=== PATIENT | male | born 1955 | race Caucasian/White ===

== ENCOUNTER → 2016-05-28 | Outpatient (CLI) | payer MEDICAID ==
[2016-05-28 12:38] LABS: ABSOLUTE BASOPHILS # (AUTO) 0.1 10^3/uL (0.0-0.2); ABSOLUTE EOSINOPHILS # (AUTO) 0.4 10^3/uL (0.0-0.6); ABSOLUTE LYMPHOCYTES (AUTO) 1.7 10^3/uL (0.5-4.7); ABSOLUTE MONOCYTES (AUTO) 0.5 10^3/uL (0.1-1.4); ABSOLUTE NEUT (AUTO) 2.9 10^3/uL (1.7-8.2); BASOPHILS % (AUTO) 1.2 % (0-2); EOSINOPHILS % (AUTO) 6.6 % (0-6); HEMATOCRIT 41.9 % (37.9-51.0); HEMOGLOBIN 14.6 g/dL (13.5-17.0); HGB HCT DIFFERENCE 1.9; LYMPHOCYTES % (AUTO) 30.8 % (13-45); MEAN CORPUSCULAR HEMOGLOBIN 34.2 pg (27.0-33.4); MEAN CORPUSCULAR HGB CONC 34.8 g/dL (32.0-36.0); MEAN CORPUSCULAR VOLUME 98 fl (80-97); MONOCYTES % (AUTO) 8.9 % (3-13); RED BLOOD COUNT 4.27 10^6/uL (4.35-5.55); RED CELL DISTRIBUTION WIDTH 13.1 % (11.5-14.0); SEGMENTED NEUTROPHILS % (AUTO) 52.5 % (42-78); WHITE BLOOD COUNT 5.5 10^3/uL (4.0-10.5)
[2016-05-28 12:55] LABS: ANION GAP 12 (5-19); BLOOD UREA NITROGEN 9 mg/dL (7-20); CALCIUM 9.2 mg/dL (8.4-10.2); CARBON DIOXIDE 23 mmol/L (22-30); CHLORIDE 99 mmol/L (98-107); GLUCOSE 84 mg/dL (75-110); POTASSIUM 4.8 mmol/L (3.6-5.0); SODIUM 133.9 mmol/L (137-145)
[2016-05-28 13:06] LABS: APPEARANCE,URINE CLEAR; BILIRUBIN,URINE NEGATIVE (NEGATIVE); GLUCOSE, URINE NEGATIVE (NEGATIVE); KETONES,URINE NEGATIVE (NEGATIVE); LEUKOCYTE ESTERASE,URINE NEGATIVE (NEGATIVE); NITRITE,URINE NEGATIVE (NEGATIVE); PROTEIN,URINE NEGATIVE (NEGATIVE); URINE SPECIFIC GRAVITY 1.014; UROBILINOGEN,URINE NEGATIVE mg/dL (<2.0)
--- NOTE | 2016-05-28 13:33 | EKG REPORT ---
SEVERITY:- BORDERLINE ECG - SINUS RHYTHM ATRIAL PREMATURE COMPLEX BORDERLINE INFERIOR Q WAVES : Confirmed by: Jared Rodriguez MD 28-May-2016 13:32:06
== END ==
LOC: OD 11:18
PROVIDERS: ATTEND Orthopaedic Surgery
DX: Z01.818 Encounter for other preprocedural examination (principal); Z01.810 Encounter for preprocedural cardiovascular examination; Z01.812 Encounter for preprocedural laboratory examination; J44.9 Chronic obstructive pulmonary disease, unspecified
CPT/HCPCS: 36415; 71020; 80048; 81001; 85025; 93005; 93010

== ENCOUNTER → 2016-06-06 | Outpatient (CLI) | payer MEDICAID ==
[~2016-06-06] MED LIST: REGADENOSON INJ 0.4 MG/5 ML DISP.SYRIN IV ONE
--- NOTE | 2016-06-07 18:04 | DRAGON STRESS TEST REPORT ---
Intravenous LexiScan Cardiolite stress test using single photon emmision computerized tomographic. Date of procedure: 06/06/2016 Ordering Provider: Dr. Maria De Jesus Orosco Indication:[ Chest pain in a patient with coronary artery disease and history of coronary artery bypass graft surgery.. Coronary risk factors: Age, hypertension, dyslipidemia, tobacco abuse disorder , and family history of coronary artery disease. Resting EKG: Sinus Rhythm. AP'C's. No acute changes. The patient had no chest pain or discomfort, and there were no arrhythmias seen. Stress EKG: No changes of ischemia.] Reason for termination: Protocol. Conclusions: Normal EKG and hemodynamic response to IV LexiScan. Nuclear data: At rest the patient was given 9.40 millicuries of technetium 99 sestamibi injected intravenously. As per protocol rest non gated SPECT images were obtained. Subsequently the patient was given intravenous LexiScan at a dose of 0.4 mg in 5 mL intravenously, followed by flush with normal saline. Subsequently the stress dose of 32.1 millicuries of technetium 99 sestamibi was injected intravenously. As per protocol stress gated images were obtained. Next Nuclear interpretation: Review of images showed that there was an area in the apical inferior wall in both the rest and stress images which showed a mild perfusion defect. This perfusion defect was more pronounced in the resting images compared to the stress images. This area had decreased motion contraction and thickening by gated study. The rest of the segments of the myocardium had normal perfusion at rest, and normal perfusion post stress with IV LexiScan. The rest of the Segments of the myocardium had normal thickening by gated study. There seems to be mild global hypokinesis, with a normal left ventricular chamber size.. T. I D. ratio was normal at 1.18. Computer read rest, and stress left ventricular ejection fraction were 52 %, and 48 %, respectively. 1. There is no scintigraphic evidence of LexiScan induced myocardial ischemia. 2. There is scintigraphic evidence of myocardial infarction/scar involving an area of the apical inferior wall. 3.. There is evidence of mild the reduced LV ejection fraction consistent with mild cardiomyopathy.. [ Recommendations: 1.Aggressive treatment of underlying coronary artery disease, and cardiopathy. 2.Aggressive risk factor modification, and treating the underlying co- morbidities, including smoking cessation counseling. 3. Recommend echocardiogram for LV ejection fraction correlation.. [] MTDD
== END ==
LOC: RAD 07:16
PROVIDERS: ATTEND Specialist
DX: R07.9 Chest pain, unspecified (principal); I25.10 Atherosclerotic heart disease of native coronary artery without angina pectoris; Z95.1 Presence of aortocoronary bypass graft
CPT/HCPCS: 93017; 78452; A9500; J2785; Q9969

== ENCOUNTER 2016-06-21 05:16 | Inpatient (IN) | payer MEDICAID ==
[~2016-06-21 05:16] MED LIST changes: +BUPIVACAINE INJ/PF LIPOSOME/PF 266 MG/20 ML SDV IJ PRN; +CEFAZOLIN 2 GM/D5W RTU 2 GM/50 ML RTUPB IV PRN; +IBUPROFEN 800 MG/NS 250 ML IV PRN; +LANSOPRAZOLE 15 MG TAB.RAP.DR PO PRN; +LIDOCAINE 0.5% INJ-PF (5 MG/ML) 50 ML SDV INJ PRN; +OXYCODONE HCL SR 10 MG TABLET PO PRN; -REGADENOSON INJ 0.4 MG/5 ML DISP.SYRIN IV ONE; +RINGERS SOLUTION,LACTATED 1,000 ML IV PRN; +SCOPOLAMINE HYDROBROMIDE 1.5 MG PATCH.TD72 TOP PRN
[2016-06-21 06:11] LABS: PROTHROMBIN TIME 12.7 SEC (11.4-15.4)
[2016-06-21 06:12] LABS: PARTIAL THROMBOPLASTIN TIME 29.7 SEC (23.5-35.8)
[2016-06-21] MEDS ORDERED: PROPOFOL INJ 200 MG/20 ML VIAL IV ONE (06:50)
[2016-06-21] MEDS ORDERED: HYDROMORPHONE HCL INJ/PF 2 MG/ML AMPULE ONE (06:50)
[2016-06-21] MEDS ORDERED: FENTANYL CITRATE INJ/PF 250 MCG/5 ML AMPULE ONE (06:50)
[2016-06-21] MEDS ORDERED: MIDAZOLAM 2 MG/2 ML INJ ONE (06:50)
[2016-06-21] MEDS ORDERED: ACETAMINOPHEN 0 ML IV ONE (06:50)
[2016-06-21] MEDS ORDERED: BUPIVACAINE HCL 0.5%-EPI 1:200000 INJ/PF 30 ML VIAL ONE (07:23)
[2016-06-21] MEDS ORDERED: BUPIVACAINE INJ/PF LIPOSOME/PF 266 MG/20 ML SDV ONE (07:23)
[2016-06-21] MEDS ORDERED: EPHEDRINE SULFATE INJ 50 MG/1 ML AMPULE ONE (08:08)
[2016-06-21] MEDS ORDERED: MEPERIDINE HCL/PF INJ 25 MG/1 ML DISP.SYRIN IV PRN (10:25)
[2016-06-21] MEDS ORDERED: OXYCODONE-ACETAMINOPHEN 5-325 MG TABLET PO PRN ×2 (10:25)
[2016-06-21] MEDS ORDERED: DIPHENHYDRAMINE HCL 50 MG/ML VIAL IV PRN (10:25)
[2016-06-21] MEDS ORDERED: PROMETHAZINE HCL INJ 25 MG/1 ML VIAL IV PRN ×2 (10:25)
[2016-06-21] MEDS ORDERED: FENTANYL CITRATE INJ/PF 100 MCG/2 ML AMPUL IV PRN ×3 (10:25)
[2016-06-21] MEDS ORDERED: ONDANSETRON HCL INJ/PF 4 MG/2 ML SDV IV PRN ×2 (10:25→11:59)
[2016-06-21] MEDS ORDERED: MORPHINE SULFATE 10 MG/ML INJ IV PRN (10:25)
[2016-06-21] MEDS ORDERED: ACETAMINOPHEN 100 ML IV ONE (11:13)
[2016-06-21] MEDS ORDERED: RINGERS SOLUTION,LACTATED 1,000 ML IV PRN ×2 (11:58→14:49)
[2016-06-21] MEDS ORDERED: ROCURONIUM BROMIDE INJ 50 MG/5 ML VIAL IV ONE (13:21)
[2016-06-21] MEDS ORDERED: SUCCINYLCHOLINE CHLORIDE INJ 200 MG/10 ML VIAL ONE (13:21)
[2016-06-21] MEDS ORDERED: NEOSTIGMINE METHYLSULFATE 10 MG/10 ML VIAL ONE (13:21)
[2016-06-21] MEDS ORDERED: LIDOCAINE 2% INJ-PF (20 MG/ML) 10 ML AMPUL ONE (13:21)
[2016-06-21] MEDS ORDERED: GLYCOPYRROLATE INJ 0.4 MG/2 ML VIAL ONE (13:21)
[2016-06-21] MEDS ORDERED: ONDANSETRON HCL INJ/PF 4 MG/2 ML SDV ONE (13:21)
[2016-06-21] MEDS ORDERED: PHENYLEPHRINE HCL INJ/PF 10 MG/1 ML SDV ONE (13:21)
[2016-06-21] MEDS ORDERED: NORMAL SALINE 500 ML IV ONE (14:30)
[2016-06-21] MEDS ORDERED: LORAZEPAM INJ 2 MG/1 ML VIAL IV PRN (14:48)
[2016-06-21] MEDS ORDERED: ALBUTEROL SULFATE 0.083% NEB 2.5 MG/3 ML AMPUL NEB PRN (14:48)
--- NOTE | 2016-06-21 15:17 | PDOC CONSULTATION ---
Consultation Consult Date: 06/21/16 Attending physician:: KEI FLORES Consult reason:: Low blood pressure History of Present Illness Admission Date/PCP: 06/21/16 05:16 RACHELL HENSON Patient complains of: Low blood pressure History of Present Illness: DORY MCGRAW is a 61 year old male with past medical history of coronary artery disease, alcohol abuse, COPD, hepatitis C cirrhosis, hypertension that is immediately status post right total shoulder arthroplasty and is noted to have low blood pressure postanesthesia. Patient is completely asymptomatic. He sitting up in bed and answering questions properly. He denies chest pain or shortness of breath. Past Medical History Cardiac Medical History: Reports: Coronary Artery Disease, Myocardial Infarction - Pt unaware of this, in chart only, Hypertension, Peripheral Vascular Disease, Heart Murmur Denies: Atrial Fibrillation, Congestive Heart Failure, Hyperlipidema, Pulmonary Embolism Pulmonary Medical History: Reports: Sleep Apnea - Pt unaware of this, in chart only Denies: Asthma, Bronchitis, Chronic Obstructive Pulmonary Disease (COPD), Pneumonia, Respiratory Failure, Tuberculosis Neurological Medical History: Denies: Seizures Endocrine Medical History: Renal/ Medical History: Malignancy Medical History: Denies: Breast Cancer, Cervical Cancer, Leukemia, Lung Cancer, Ovarian Cancer GI Medical History: Reports: Gastroesophageal Reflux Disease, Hiatal Hernia Denies: Crohn's Disease Musculoskeltal Medical History: Reports: Arthritis Denies: Fibromyalgia Psychiatric Medical History: Denies: Bipolar Disorder, Dementia, Depression, Post Traumatic Stress Disorder Hematology: Reports: Anemia Denies: Hemophilia, Sickle Cell Disease Infectious Medical History: Denies: HIV Past Surgical History Past Surgical History: Reports: Coronary Artery Bypass Graft - Triple Bypass, Orthopedic Surgery - Left total shoulder, right total shoulder, bilateral hip replacement Denies: Appendectomy, Cholecystectomy, Colostomy, Gastric Bypass Surgery, Herniorrhaphy, Pacemaker, Tonsillectomy Social History Information Source: Patient Lives with: Spouse/Significant other Smoking Status: Current Every Day Smoker Cigarettes Packs Per Day: 1 Frequency of Alcohol Use: Heavy Hx Recreational Drug Use: No - Yes- years ago Hx Prescription Drug Abuse: No - Advance Directive Resuscitation Status: Full Code Family History Family History: CAD, Malignancy Parental Family History Reviewed: Yes Children Family History Reviewed: Yes Sibling(s) Family History Reviewed.: Yes Medication/Allergy Home Medications: Aspirin/Caffeine [Bc Powder Packet] 1 pkt PO BID 06/06/16 Atorvastatin Calcium [Lipitor 10 mg Tablet] 10 mg PO QAM 06/06/16 Duloxetine HCl [Cymbalta] 60 mg PO [facility] 06/06/16 Gabapentin 300 mg PO QA 06/06/16 Lisinopril [Prinivil 30 mg Tablet] 30 mg PO QAM 06/06/16 Metoprolol Tartrate [Lopressor 25 mg Tablet] 25 mg PO QA 06/06/16 Multivitamin [Multivitamins] 1 each PO [facility] 06/06/16 Omeprazole 20 mg PO M 06/06/16 Varenicline Tartrate [Chantix 1 Mg Tablet] 1 mg PO BID 06/06/16 Allergies/Adverse Reactions: No Known Allergies Allergy (Unverified 01/03/11 10:18) Review of Systems Constitutional: ABSENT: chills, fever(s), headache(s), weight gain, weight loss Eyes: ABSENT: visual disturbances Ears: ABSENT: hearing changes Cardiovascular: ABSENT: chest pain, dyspnea on exertion, edema, orthropnea, palpitations Respiratory: ABSENT: cough, hemoptysis Gastrointestinal: ABSENT: abdominal pain, constipation, diarrhea, hematemesis, hematochezia, nausea, vomiting Genitourinary: ABSENT: dysuria, hematuria Musculoskeletal: PRESENT: other - pain in right shoulder. ABSENT: joint swelling Integumentary: ABSENT: rash, wounds Neurological: ABSENT: abnormal gait, abnormal speech, confusion, dizziness, focal weakness, syncope Psychiatric: ABSENT: anxiety, depression, homidical ideation, suicidal ideation Endocrine: ABSENT: cold intolerance, heat intolerance, polydipsia, polyuria Hematologic/Lymphatic: ABSENT: easy bleeding, easy bruising Physical Exam Vital Signs: Temp Pulse Resp BP Pulse Ox 98.5 F 67 16 90/44 L 98 06/21/16 13:11 06/21/16 13:11 06/21/16 13:11 06/21/16 13:11 06/21/16 13:11 Intake & Output 06/20/16 06/21/16 06/22/16 06:59 06:59 06:59 Intake Total 0 2408 Output Total 700 Balance 0 1708 PHYSICAL EXAM: GENERAL: Appears well, no acute distress HEENT: Normocephalic, no scleral icterus, conjunctiva clear, EOEM intact, PERRLA , moist mucous membranes NECK: trachea midline, no thyromegally RESPIRATORY: Clear to auscultation, no wheezes/rhonchi CARDIAC: Regular rate and rhythm, no murmur/fletcher/rub ABDOMEN: Soft, no distension, no tenderness, no guarding, normal bowel sounds, negative Farah sign RECTAL: deferred : deferred EXTREMITIES: No edema, cyanosis, clubbing MUSCULOSKELETAL: No joint swelling or deformity VASCULAR: normal peripheral pulses NEUROLOGIC: Alert, oriented to person and place only, he does not know the year , normal speech, cranial nerves grossly intact, 5/5 strength in all extremities , tactile sensation intact in all extremities SKIN: Healed sternotomy incision, healed incision over left shoulder, healed incision of her right knee PSYCHIATRIC: Normal mood, normal affect General appearance: PRESENT: no acute distress, well-developed, well-nourished Head exam: PRESENT: atraumatic, normocephalic Eye exam: PRESENT: conjunctiva pink, EOMI, PERRLA. ABSENT: scleral icterus Ear exam: PRESENT: normal external ear exam Mouth exam: PRESENT: moist, tongue midline Neck exam: ABSENT: carotid bruit, JVD, lymphadenopathy, thyromegaly Respiratory exam: PRESENT: clear to auscultation tone. ABSENT: rales, rhonchi, wheezes Cardiovascular exam: PRESENT: RRR. ABSENT: diastolic murmur, rubs, systolic murmur Pulses: PRESENT: normal dorsalis pedis pul Vascular exam: PRESENT: normal capillary refill GI/Abdominal exam: PRESENT: normal bowel sounds, soft. ABSENT: distended, guarding, mass, organolmegaly, rebound, tenderness Rectal exam: PRESENT: deferred Extremities exam: PRESENT: full ROM. ABSENT: calf tenderness, clubbing, pedal edema Neurological exam: PRESENT: alert, awake, oriented to person, oriented to place , oriented to time, oriented to situation, CN II-XII grossly intact. ABSENT: motor sensory deficit Psychiatric exam: PRESENT: appropriate affect, normal mood. ABSENT: homicidal ideation, suicidal ideation Skin exam: PRESENT: dry, intact, warm. ABSENT: cyanosis, rash Results Laboratory Results: 06/21/16 05:40 Blood Type B POSITIVE Antibody Screen NEGATIVE Assessment & Plan - Diagnosis (1) Status post total shoulder arthroplasty Is this a current diagnosis for this admission?: YesPlan: Orthopedics managing. (2) Hypotension Is this a current diagnosis for this admission?: YesPlan: Patient took routine outpatient medications of metoprolol and lisinopril this morning prior to surgery. General anesthesia probably also contributing. Patient is completely asymptomatic. Patient will receive one time 500 mL fluid bolus. In general we need to be conservative with IV fluid resuscitation given severe mitral regurgitation. Given cardiac history I would also like to check serial cardiac enzymes. EKG shows no acute ST or T-wave changes. (3) HTN (hypertension) Is this a current diagnosis for this admission?: Yes (4) Cirrhosis Is this a current diagnosis for this admission?: Yes (5) Hepatitis C Is this a current diagnosis for this admission?: Yes (6) CAD (coronary artery disease) Is this a current diagnosis for this admission?: Yes (7) COPD (chronic obstructive pulmonary disease) Is this a current diagnosis for this admission?: Yes (8) Alcohol abuse Is this a current diagnosis for this admission?: YesPlan: Start thiamine. Patient has some mild memory impairments likely secondary to Wernicke's. When necessary Ativan for signs of withdrawal. (9) Tobacco abuse Is this a current diagnosis for this admission?: Yes (10) Severe mitral regurgitation Is this a current diagnosis for this admission?: Yes - Time Time Spent: Greater than 70 Minutes
[2016-06-21 15:26] LABS: ABSOLUTE LYMPHOCYTES (AUTO) 1.1 10^3/uL (0.5-4.7); ABSOLUTE MONOCYTES (AUTO) 0.1 10^3/uL (0.1-1.4); ABSOLUTE NEUT (AUTO) 6.5 10^3/uL (1.7-8.2); BASOPHILS % (AUTO) 0.4 % (0-2); EOSINOPHILS % (AUTO) 0.5 % (0-6); HEMOGLOBIN 11.4 g/dL (13.5-17.0); HGB HCT DIFFERENCE 0.2; LYMPHOCYTES % (AUTO) 13.9 % (13-45); MEAN CORPUSCULAR HEMOGLOBIN 33.5 pg (27.0-33.4); MEAN CORPUSCULAR HGB CONC 33.7 g/dL (32.0-36.0); MEAN CORPUSCULAR VOLUME 99 fl (80-97); MONOCYTES % (AUTO) 1.9 % (3-13); RED BLOOD COUNT 3.42 10^6/uL (4.35-5.55); RED CELL DISTRIBUTION WIDTH 13.4 % (11.5-14.0); SEGMENTED NEUTROPHILS % (AUTO) 83.3 % (42-78); WHITE BLOOD COUNT 7.8 10^3/uL (4.0-10.5)
[2016-06-21] MEDS: CEFAZOLIN 2 GM/D5W RTU 2 GM/50 ML RTUPB IV SCH ×2 (15:28→22:23)
[2016-06-21 15:36] LABS: ALANINE AMINOTRANSFERASE 27 U/L (21-72); ALBUMIN 2.8 g/dL (3.5-5.0); ALKALINE PHOSPHATASE 59 U/L (38-126); ANION GAP 9 (5-19); ASPARTATE AMINO TRANSFERASE 31 U/L (17-59); BILIRUBIN,DIRECT 0.3 mg/dL (0.0-0.4); BILIRUBIN,TOTAL 0.5 mg/dL (0.2-1.3); BLOOD UREA NITROGEN 17 mg/dL (7-20); CALCIUM 7.9 mg/dL (8.4-10.2); CARBON DIOXIDE 21 mmol/L (22-30); CHLORIDE 104 mmol/L (98-107); CREATININE RESULT 1.27 mg/dL (0.52-1.25); GLUCOSE 166 mg/dL (75-110); POTASSIUM 4.6 mmol/L (3.6-5.0); SODIUM 134.3 mmol/L (137-145); TOTAL PROTEIN 4.9 g/dL (6.3-8.2)
[2016-06-21 15:52] LABS: CREATINE KINASE MB 4.06 ng/mL (<4.55)
[2016-06-21] MEDS ORDERED: ASPIRIN 81 MG TABLET, ENT COATED PO ONE (16:00)
[2016-06-21 16:01] LABS: TROPONIN I < 0.012 ng/mL
[2016-06-21] MEDS: VARENICLINE TARTRATE 1 MG TABLET PO SCH (17:58)
[2016-06-21] MEDS ORDERED: ASPIRIN PO SCH (18:00)
[2016-06-21] MEDS ORDERED: CAFFEINE PO SCH (18:00)
[2016-06-21] MEDS: OXYCODONE-ACETAMINOPHEN 5-325 MG TABLET PO PRN ×2 (18:27→22:23)
[2016-06-21 22:04] LABS: CREATINE KINASE MB 4.31 ng/mL (<4.55)
[2016-06-21 22:08] LABS: TROPONIN I < 0.012 ng/mL
[2016-06-22] MEDS: OXYCODONE-ACETAMINOPHEN 5-325 MG TABLET PO PRN ×4 (02:14→17:50)
[2016-06-22 03:40] LABS: HEMATOCRIT 33.2 % (37.9-51.0); HEMOGLOBIN 11.3 g/dL (13.5-17.0); HGB HCT DIFFERENCE 0.7; MEAN CORPUSCULAR HEMOGLOBIN 33.6 pg (27.0-33.4); MEAN CORPUSCULAR HGB CONC 34.2 g/dL (32.0-36.0); MEAN CORPUSCULAR VOLUME 98 fl (80-97); RED BLOOD COUNT 3.38 10^6/uL (4.35-5.55); RED CELL DISTRIBUTION WIDTH 13.5 % (11.5-14.0); WHITE BLOOD COUNT 7.1 10^3/uL (4.0-10.5)
[2016-06-22 03:52] LABS: ANION GAP 10 (5-19); BLOOD UREA NITROGEN 18 mg/dL (7-20); CALCIUM 7.6 mg/dL (8.4-10.2); CARBON DIOXIDE 22 mmol/L (22-30); CHLORIDE 101 mmol/L (98-107); CREATINE KINASE 435 U/L (55-170); CREATININE RESULT 1.06 mg/dL (0.52-1.25); GLUCOSE 116 mg/dL (75-110); POTASSIUM 4.2 mmol/L (3.6-5.0); SODIUM 132.5 mmol/L (137-145)
[2016-06-22 04:04] LABS: CREATINE KINASE MB 4.91 ng/mL (<4.55)
[2016-06-22 04:09] LABS: TROPONIN I < 0.012 ng/mL
[2016-06-22] MEDS: ATORVASTATIN CALCIUM 10 MG TABLET PO SCH (08:10)
[2016-06-22] MEDS: LANSOPRAZOLE 15 MG TAB.RAP.DR PO SCH (08:11)
[2016-06-22] MEDS: GABAPENTIN 300 MG CAPSULE PO SCH (08:11)
--- NOTE | 2016-06-22 08:20 | EKG REPORT ---
SEVERITY:- BORDERLINE ECG - SINUS RHYTHM BORDERLINE INFERIOR Q WAVES BORDERLINE T WAVE ABNORMALITIES : Confirmed by: Jared Rodriguez MD 22-Jun-2016 08:20:20
[2016-06-22] MEDS: VARENICLINE TARTRATE 1 MG TABLET PO SCH ×2 (09:40→17:50)
[2016-06-22] MEDS: METOPROLOL TARTRATE 25 MG TABLET PO SCH (09:41)
[2016-06-22] MEDS: ASPIRIN 81 MG TABLET, ENT COATED PO SCH (09:42)
[2016-06-22] MEDS: DULOXETINE HCL 30 MG CAPSULE.DR PO SCH (09:42)
[2016-06-22] MEDS: THIAMINE HCL 100 MG TABLET PO SCH (09:42)
[2016-06-22] MEDS: MULTIVITAMIN TABLET PO SCH (09:42)
[2016-06-22] MEDS ORDERED: LISINOPRIL 10 MG TABLET PO SCH (10:00)
--- NOTE | 2016-06-22 13:39 | PDOC PROGRESS REPORT ---
Subjective Progress Note for:: 06/22/16 Subjective:: Blood pressure stable today. Patient has no weakness, dizziness, chest pain, shortness of breath. Sitting in the bedside chair eating lunch. Physical Exam Vital Signs: Temp Pulse Resp BP Pulse Ox 98.3 F 62 15 100/58 L 99 06/22/16 11:28 06/22/16 11:28 06/22/16 11:28 06/22/16 11:28 06/22/16 11:28 Intake & Output 06/21/16 06/22/16 06/23/16 06:59 06:59 06:59 Intake Total 0 4748 200 Output Total 700 Balance 0 4048 200 GENERAL: No acute distress HEENT: Conjunctiva clear, nonicteric, moist mucous membranes, no JVD, midline trachea RESPIRATORY: Clear to auscultation bilaterally, no wheezes, no rhonchi CARDIAC: Regular rate and rhythm, no murmurs/gallops/rubs ABDOMEN: Soft, nondistended, nontender, positive bowel sounds, no rebound, no guarding EXTREMETIES: No edema, cyanosis, clubbing. Right shoulder immobilizer in place NEUROLOGIC: Alert, oriented to person/place/time, CN's grossly intact, no focal deficits SKIN: No rash, wounds PSYCH: Normal mood, normal affect Results Laboratory Results: 06/22/16 03:31 06/22/16 03:31 06/21/16 06/21/16 06/22/16 15:09 15:09 03:31 WBC 7.8 7.1 RBC 3.42 L 3.38 L Hgb 11.4 L 11.3 L Hct 34.0 L 33.2 L MCV 99 H 98 H MCH 33.5 H 33.6 H MCHC 33.7 34.2 RDW 13.4 13.5 Plt Count 126 L 106 L Seg Neutrophils % 83.3 H Lymphocytes % 13.9 Monocytes % 1.9 L Eosinophils % 0.5 Basophils % 0.4 Absolute Neutrophils 6.5 Absolute Lymphocytes 1.1 Absolute Monocytes 0.1 Absolute Eosinophils 0.0 Absolute Basophils 0.0 Sodium 134.3 L Potassium 4.6 Chloride 104 Carbon Dioxide 21 L Anion Gap 9 BUN 17 Creatinine 1.27 H Est GFR ( Amer) > 60 Est GFR (Non-Af Amer) 57 L Glucose 166 H Calcium 7.9 L Total Bilirubin 0.5 AST 31 ALT 27 Alkaline Phosphatase 59 Total Protein 4.9 L Albumin 2.8 L 06/22/16 03:31 WBC RBC Hgb Hct MCV MCH MCHC RDW Plt Count Seg Neutrophils % Lymphocytes % Monocytes % Eosinophils % Basophils % Absolute Neutrophils Absolute Lymphocytes Absolute Monocytes Absolute Eosinophils Absolute Basophils Sodium 132.5 L Potassium 4.2 Chloride 101 Carbon Dioxide 22 Anion Gap 10 BUN 18 Creatinine 1.06 Est GFR ( Amer) > 60 Est GFR (Non-Af Amer) > 60 Glucose 116 H Calcium 7.6 L Total Bilirubin AST ALT Alkaline Phosphatase Total Protein Albumin 06/21/16 06/21/16 06/21/16 15:09 15:09 21:15 Creatine Kinase 280 H 328 H CK-MB (CK-2) 4.06 Troponin I < 0.012 06/21/16 06/22/16 06/22/16 21:15 03:31 03:31 Creatine Kinase 435 H CK-MB (CK-2) 4.31 4.91 H Troponin I < 0.012 < 0.012 Impressions: Chest X-Ray 06/21/16 14:12 IMPRESSION: Obstructive lung disease. Minimal right basilar atelectasis Assessment & Plan - Diagnosis (1) Status post total shoulder arthroplasty Is this a current diagnosis for this admission?: YesPlan: Orthopedics managing. (2) Hypotension Is this a current diagnosis for this admission?: YesPlan: Resolved. Likely secondary to blood pressure medication side effect and anesthesia. Hospital medicine service will sign off for now. (3) HTN (hypertension) Is this a current diagnosis for this admission?: YesPlan: Continue metoprolol. Decrease lisinopril to 10 mg daily. (4) Cirrhosis Is this a current diagnosis for this admission?: Yes (5) Hepatitis C Is this a current diagnosis for this admission?: Yes (6) CAD (coronary artery disease) Is this a current diagnosis for this admission?: Yes (7) COPD (chronic obstructive pulmonary disease) Is this a current diagnosis for this admission?: Yes (8) Alcohol abuse Is this a current diagnosis for this admission?: Yes (9) Tobacco abuse Is this a current diagnosis for this admission?: Yes (10) Severe mitral regurgitation Is this a current diagnosis for this admission?: YesPlan: Discontinue IV fluidsand is taking oral intake and blood pressure is stable. - Time Time Spent with patient: 25-34 minutes
[2016-06-22] MEDS ORDERED: LORAZEPAM INJ 2 MG/1 ML VIAL ONE (19:52)
[2016-06-22] MEDS ORDERED: LORAZEPAM INJ 2 MG/1 ML VIAL IM ONE (20:00)
[2016-06-22] MEDS ORDERED: LORAZEPAM INJ 2 MG/1 ML VIAL IV PRN ×2 (20:20→20:22)
[2016-06-22] MEDS: LORAZEPAM INJ 2 MG/1 ML VIAL IV PRN (21:02)
[2016-06-22 21:32] LABS: ADD ON TESTING BLD IN LAB ACKNOWLEDGE
[2016-06-22 21:40] LABS: MAGNESIUM 1.4 mg/dL (1.6-2.3)
[2016-06-22] MEDS: MAGNESIUM SULFATE/D5W 1 GM/100 ML RTUPB IV SCH ×2 (22:41→23:43)
[2016-06-23] MEDS: MAGNESIUM SULFATE/D5W 1 GM/100 ML RTUPB IV SCH (00:44)
[2016-06-23 05:50] LABS: HEMATOCRIT 31.4 % (37.9-51.0); HEMOGLOBIN 10.6 g/dL (13.5-17.0); HGB HCT DIFFERENCE 0.4; MEAN CORPUSCULAR HEMOGLOBIN 33.5 pg (27.0-33.4); MEAN CORPUSCULAR HGB CONC 33.7 g/dL (32.0-36.0); MEAN CORPUSCULAR VOLUME 99 fl (80-97); RED BLOOD COUNT 3.17 10^6/uL (4.35-5.55); RED CELL DISTRIBUTION WIDTH 13.5 % (11.5-14.0); WHITE BLOOD COUNT 6.3 10^3/uL (4.0-10.5)
[2016-06-23 06:11] LABS: ANION GAP 6 (5-19); BLOOD UREA NITROGEN 12 mg/dL (7-20); CALCIUM 8.2 mg/dL (8.4-10.2); CARBON DIOXIDE 26 mmol/L (22-30); CHLORIDE 100 mmol/L (98-107); CREATININE RESULT 0.69 mg/dL (0.52-1.25); GLUCOSE 107 mg/dL (75-110); POTASSIUM 4.4 mmol/L (3.6-5.0); SODIUM 132.3 mmol/L (137-145)
--- NOTE | 2016-06-23 07:47 | PDOC PROGRESS REPORT ---
Subjective Progress Note for:: 06/23/16 Subjective:: Patient sedated after 12 mg of Ativan to control DTs Physical Exam Vital Signs: Temp Pulse Resp BP Pulse Ox 37.5 C 107 H 21 H 140/61 H 96 06/23/16 03:39 06/23/16 03:39 06/23/16 03:39 06/23/16 03:39 06/23/16 03:39 Intake & Output 06/22/16 06/23/16 06/24/16 06:59 06:59 06:59 Intake Total 4748 890 Output Total 700 2600 Balance 4048 -1710 General appearance: PRESENT: thin Extremities exam: PRESENT: other - Right shoulder dressing with minor old drainage . vascular examination is notable for brisk capillary refill. Neurologic examination cannot be assessed Results Laboratory Results: 06/23/16 04:46 06/23/16 04:46 06/22/16 06/23/16 06/23/16 03:31 04:46 04:46 WBC 6.3 RBC 3.17 L Hgb 10.6 L Hct 31.4 L MCV 99 H MCH 33.5 H MCHC 33.7 RDW 13.5 Plt Count 90 L Sodium 132.3 L Potassium 4.4 Chloride 100 Carbon Dioxide 26 Anion Gap 6 BUN 12 Creatinine 0.69 Est GFR ( Amer) > 60 Est GFR (Non-Af Amer) > 60 Glucose 107 Calcium 8.2 L Magnesium 1.4 L 06/21/16 06/21/16 06/21/16 15:09 15:09 21:15 Creatine Kinase 280 H 328 H CK-MB (CK-2) 4.06 Troponin I < 0.012 06/21/16 06/22/16 06/22/16 21:15 03:31 03:31 Creatine Kinase 435 H CK-MB (CK-2) 4.31 4.91 H Troponin I < 0.012 < 0.012 Impressions: Chest X-Ray 06/21/16 14:12 IMPRESSION: Obstructive lung disease. Minimal right basilar atelectasis Assessment & Plan - Diagnosis (1) Alcohol abuse Is this a current diagnosis for this admission?: YesPlan: Patient in flagrant DTs now sedated with Ativan (2) Status post total shoulder arthroplasty Is this a current diagnosis for this admission?: YesPlan: Wounds seems to be healing uneventfully. Neurologic examination cannot be assessed - Time Time Spent with patient: 15-24 minutes Within: Other
[2016-06-23] MEDS ORDERED: LISINOPRIL 10 MG TABLET PO SCH (10:00)
[2016-06-23] MEDS ORDERED: LORAZEPAM INJ 2 MG/1 ML VIAL IV ONE (11:42)
[2016-06-23] MEDS: DULOXETINE HCL 30 MG CAPSULE.DR PO SCH (11:43)
[2016-06-23] MEDS ORDERED: DEXTROSE 40% GEL 15 GM TUBE PO PRN ×2 (11:43)
[2016-06-23] MEDS ORDERED: GLUCAGON,HUMAN RECOMB 1 MG INJ SUBCUT PRN (11:43)
[2016-06-23] MEDS ORDERED: DEXTROSE 50%-WATER 25 GM/50 ML DISP.SYRIN IV PRN ×2 (11:43)
[2016-06-23] MEDS: VARENICLINE TARTRATE 1 MG TABLET PO SCH (11:44)
[2016-06-23] MEDS: ASPIRIN 81 MG TABLET, ENT COATED PO SCH (11:44)
[2016-06-23] MEDS: THIAMINE HCL 100 MG TABLET PO SCH (11:45)
[2016-06-23] MEDS: ATORVASTATIN CALCIUM 10 MG TABLET PO SCH (11:46)
[2016-06-23] MEDS: MULTIVITAMIN TABLET PO SCH (11:46)
[2016-06-23] MEDS: LANSOPRAZOLE 15 MG TAB.RAP.DR PO SCH (11:46)
[2016-06-23] MEDS: GABAPENTIN 300 MG CAPSULE PO SCH (11:47)
[2016-06-23] MEDS: METOPROLOL TARTRATE 25 MG TABLET PO SCH (11:47)
[2016-06-23] MEDS ORDERED: MAGNESIUM SULFATE/D5W 100 ML IV SCH (13:00)
[2016-06-23] MEDS ORDERED: HALOPERIDOL LACTATE INJ 5 MG/1 ML VIAL ONE (14:11)
--- NOTE | 2016-06-23 14:16 | PDOC PROGRESS REPORT ---
Subjective Progress Note for:: 06/23/16 Subjective:: Patient has become confused and combative overnight as result of acute alcohol withdrawal. I cannot obtain any reasonable history from from patient secondary to encephalopathy and agitation. Physical Exam Vital Signs: Temp Pulse Resp BP Pulse Ox 97.3 F 94 20 138/85 H 99 06/23/16 11:22 06/23/16 13:40 06/23/16 13:40 06/23/16 11:22 06/23/16 11:22 Intake & Output 06/22/16 06/23/16 06/24/16 06:59 06:59 06:59 Intake Total 4748 890 0 Output Total 700 2600 800 Balance 5739 -2982 -800 GENERAL: Acutely agitated HEENT: Conjunctiva clear, nonicteric, moist mucous membranes, no JVD, midline trachea RESPIRATORY: Clear to auscultation bilaterally, no wheezes, no rhonchi CARDIAC: Regular rate and rhythm, no murmurs/gallops/rubs ABDOMEN: Soft, nondistended, nontender, positive bowel sounds, no rebound, no guarding EXTREMETIES: No edema, cyanosis, clubbing. Right shoulder immobilizer in place NEUROLOGIC: Globally disoriented, CN's grossly intact, no focal deficits SKIN: No rash, wounds Results Laboratory Results: 06/23/16 04:46 06/23/16 04:46 06/22/16 06/23/16 06/23/16 03:31 04:46 04:46 WBC 6.3 RBC 3.17 L Hgb 10.6 L Hct 31.4 L MCV 99 H MCH 33.5 H MCHC 33.7 RDW 13.5 Plt Count 90 L Sodium 132.3 L Potassium 4.4 Chloride 100 Carbon Dioxide 26 Anion Gap 6 BUN 12 Creatinine 0.69 Est GFR ( Amer) > 60 Est GFR (Non-Af Amer) > 60 Glucose 107 Calcium 8.2 L Magnesium 1.4 L 06/21/16 06/21/16 06/21/16 15:09 15:09 21:15 Creatine Kinase 280 H 328 H CK-MB (CK-2) 4.06 Troponin I < 0.012 06/21/16 06/22/16 06/22/16 21:15 03:31 03:31 Creatine Kinase 435 H CK-MB (CK-2) 4.31 4.91 H Troponin I < 0.012 < 0.012 Impressions: Chest X-Ray 06/21/16 14:12 IMPRESSION: Obstructive lung disease. Minimal right basilar atelectasis Assessment & Plan - Diagnosis (1) Delirium tremens Is this a current diagnosis for this admission?: YesPlan: Patient has been moved to the intensive care unit. We will place him on IV Ativan infusion and titrate to light sedation. Patient will be made nothing by mouth status and placed on IV fluids. (2) Status post total shoulder arthroplasty Is this a current diagnosis for this admission?: YesPlan: Orthopedics managing. (3) Hypotension Is this a current diagnosis for this admission?: YesPlan: Resolved. Likely secondary to blood pressure medication side effect and anesthesia. (4) HTN (hypertension) Is this a current diagnosis for this admission?: YesPlan: Hold oral medications for now while nothing by mouth. When necessary IV Lopressor. (5) Cirrhosis Is this a current diagnosis for this admission?: Yes (6) Hepatitis C Is this a current diagnosis for this admission?: Yes (7) CAD (coronary artery disease) Is this a current diagnosis for this admission?: Yes (8) COPD (chronic obstructive pulmonary disease) Is this a current diagnosis for this admission?: Yes (9) Alcohol abuse Is this a current diagnosis for this admission?: YesPlan: Continue thiamine. Patient has some mild memory impairments likely secondary to Wernicke's. (10) Tobacco abuse Is this a current diagnosis for this admission?: Yes (11) Severe mitral regurgitation Is this a current diagnosis for this admission?: YesPlan: Monitor respiratory status closely on gentle IV fluids. (12) Hypomagnesemia Is this a current diagnosis for this admission?: YesPlan: Likely associated with acute alcohol withdrawal. Replace as needed. - Time Time Spent with patient: 35 or more minutes
[2016-06-23] MEDS ORDERED: HALOPERIDOL LACTATE INJ 5 MG/1 ML VIAL IV ONE (14:30)
[2016-06-23] MEDS: LORAZEPAM INJ 2 MG/1 ML VIAL IV PRN (14:34)
[2016-06-23] MEDS: PANTOPRAZOLE SODIUM 40 MG VIAL IV SCH (14:35)
[2016-06-23] MEDS: DEXTROSE 5%-NORMAL SALINE 1,000 ML IV PRN (14:56)
[2016-06-23] MEDS ORDERED: FENTANYL CITRATE INJ/PF 100 MCG/2 ML AMPUL ONE (16:14)
[2016-06-23] MEDS ORDERED: CEFTRIAXONE 1 GM/D5W RTU 1 GM/50 ML RTUPB IV ONE (16:30)
[2016-06-23] MEDS ORDERED: PROPOFOL 100 ML IV ONE (16:33)
--- NOTE | 2016-06-23 16:33 | PDOC PROGRESS REPORT ---
Bedside Procedure - Central Line Right Femoral Time completed: 16:30 Consent obtained: No - unable to obtain, placed under emergency setting secondary to acute DT's Central line pre-insertion: Sterile PPE donned, Chloraprep applied, Sterile drapes applied Central line lumen type: Triple Anesthetic type: 1% Lidocaine Ultrasound guided: No Line secured with sutures: Yes Central line post-insertion: Blood return from lumens, Biopatch applied, Sutured , Sterile dressing applied Complications: No
[2016-06-23] MEDS: THIAMINE HCL 100 MG, FOLIC ACID 1 MG in NORMAL SALINE 50 ML IV SCH (16:35)
--- NOTE | 2016-06-23 16:37 | Progress Note ---
Provider Note Provider Note: ADDENDUM: Patient with worsening respiratory depression as a result of excessive amounts of sedation required for acute delirium tremens. Patient no longer able to protect airway secondary to acute delirium tremens and required sedation for treatment of acute delirium tremens. It is my impression patient's alcohol withdrawal is going to get worse before it gets better. Decision has been made to intubate patient for airway protection and respiratory assistance until he is through his acute delirium tremens. I will consult Dr. Ricardo of pulmonary medicine.
[2016-06-23] MEDS ORDERED: PHARMACY COMMUNICATION ORDER MC NR (16:45)
[2016-06-23 16:54] LABS: APPEARANCE,URINE CLEAR; BILIRUBIN,URINE NEGATIVE (NEGATIVE); GLUCOSE, URINE NEGATIVE (NEGATIVE); KETONES,URINE NEGATIVE (NEGATIVE); LEUKOCYTE ESTERASE,URINE NEGATIVE (NEGATIVE); NITRITE,URINE NEGATIVE (NEGATIVE); PROTEIN,URINE NEGATIVE (NEGATIVE); URINE SPECIFIC GRAVITY 1.006
[2016-06-23] MEDS ORDERED: FENTANYL CITRATE INJ/PF 100 MCG/2 ML AMPUL IV ONE (16:55)
[2016-06-23] MEDS ORDERED: NORMAL SALINE 1000 ML 500 ML IV ONE (17:40)
[2016-06-23] MEDS: PROPOFOL 100 ML IV PRN (18:15)
[2016-06-23] MEDS: LORAZEPAM 24 MG/240 ML BAG IV PRN ×2 (18:16→19:27)
[2016-06-23 18:24] LABS: ARTERIAL BLOOD BASE EXCESS 3.6 mmol/L; ARTERIAL BLOOD O2 SATURATION 99.2 % (94-98)
[2016-06-23] MEDS ORDERED: MAGNESIUM SULFATE/D5W 1 GM/100 ML RTUPB IV ONE (19:02)
[2016-06-23] MEDS ORDERED: NORMAL SALINE 500 ML IV ONE (20:00)
[2016-06-23] MEDS: IPRATROPIUM/ALBUTEROL 0.5-2.5 MG/3 ML AMPUL NEB SCH (20:12)
--- NOTE | 2016-06-23 20:43 | PDOC CONSULTATION ---
Consultation Consult Date: 06/23/16 Attending physician:: JANELL PONCE Consult reason:: RESP FAIL History of Present Illness Admission Date/PCP: 06/21/16 05:16 RACHELL HENSON History of Present Illness: Information from chart DORY MCGRAW is a 61 year old male with past medical history of coronary artery disease, alcohol abuse, COPD, hepatitis C cirrhosis, hypertension that is immediately status post right total shoulder arthroplasty and is noted to have low blood pressure postanesthesia. Patient is completely asymptomatic. He sitting up in bed and answering questions properly. He denies chest pain or shortness of breath. However patient resp status decline as it appears he was going into DT with declining mental status Past Medical History Cardiac Medical History: Reports: Coronary Artery Disease, Myocardial Infarction - Pt unaware of this, in chart only, Hypertension, Peripheral Vascular Disease, Heart Murmur Denies: Atrial Fibrillation, Congestive Heart Failure, Hyperlipidema, Pulmonary Embolism Pulmonary Medical History: Reports: Sleep Apnea - Pt unaware of this, in chart only Denies: Asthma, Bronchitis, Chronic Obstructive Pulmonary Disease (COPD), Pneumonia, Respiratory Failure, Tuberculosis Neurological Medical History: Denies: Seizures Endocrine Medical History: Renal/ Medical History: Malignancy Medical History: Denies: Breast Cancer, Cervical Cancer, Leukemia, Lung Cancer, Ovarian Cancer GI Medical History: Reports: Gastroesophageal Reflux Disease, Hiatal Hernia Denies: Crohn's Disease Musculoskeltal Medical History: Reports: Arthritis Denies: Fibromyalgia Psychiatric Medical History: Denies: Bipolar Disorder, Dementia, Depression, Post Traumatic Stress Disorder Hematology: Reports: Anemia Denies: Hemophilia, Sickle Cell Disease Infectious Medical History: Denies: HIV Past Surgical History Past Surgical History: Reports: Coronary Artery Bypass Graft - Triple Bypass, Orthopedic Surgery - Left total shoulder, right total shoulder, bilateral hip replacement Denies: Appendectomy, Cholecystectomy, Colostomy, Gastric Bypass Surgery, Herniorrhaphy, Pacemaker, Tonsillectomy Social History Information Source: [facility] Records Lives with: Spouse/Significant other Smoking Status: Smoker,Current Status Unk Cigarettes Packs Per Day: 1 Number of Years Smokin Frequency of Alcohol Use: Heavy Hx Recreational Drug Use: No - Yes- years ago Drugs: Marijuana Hx Prescription Drug Abuse: No - Advance Directive Resuscitation Status: Full Code Family History Family History: CAD, Malignancy Parental Family History Reviewed: No Children Family History Reviewed: No Sibling(s) Family History Reviewed.: No Medication/Allergy Home Medications: Aspirin/Caffeine [Bc Powder Packet] 1 pkt PO BID 06/06/16 Atorvastatin Calcium [Lipitor 10 mg Tablet] 10 mg PO QAM 06/06/16 Duloxetine HCl [Cymbalta] 60 mg PO QAM 06/06/16 Gabapentin 300 mg PO QAM 06/06/16 Lisinopril [Prinivil 30 mg Tablet] 30 mg PO QAM 06/06/16 Metoprolol Tartrate [Lopressor 25 mg Tablet] 25 mg PO QAM 06/06/16 Multivitamin [Multivitamins] 1 each PO QAM 06/06/16 Omeprazole 20 mg PO QAM 06/06/16 Varenicline Tartrate [Chantix 1 Mg Tablet] 1 mg PO BID 06/06/16 Allergies/Adverse Reactions: No Known Allergies Allergy (Unverified 01/03/11 10:18) Review of Systems ROS unobtainable: Due to endotracheal tube Physical Exam Vital Signs: Temp Pulse Resp BP Pulse Ox 100.9 F H 101 H 22 H 132/104 H 96 06/23/16 14:00 06/23/16 14:00 06/23/16 14:00 06/23/16 14:00 06/23/16 14:00 Intake & Output 06/22/16 06/23/16 06/24/16 06:59 06:59 06:59 Intake Total 4748 890 0 Output Total 700 2600 800 Balance 6378 -2523 -387 General appearance: PRESENT: no acute distress, disheveled, thin, well-developed Head exam: PRESENT: atraumatic, normocephalic Eye exam: PRESENT: conjunctiva pale Mouth exam: PRESENT: dry mucosa, other - ET tube Neck exam: ABSENT: carotid bruit, JVD, lymphadenopathy, thyromegaly Respiratory exam: PRESENT: decreased breath sounds, prolonged expiratory phas, rhonchi, symmetrical, unlabored Cardiovascular exam: PRESENT: RRR, +S1, +S2 Pulses: PRESENT: normal radial pulses GI/Abdominal exam: PRESENT: normal bowel sounds, soft. ABSENT: distended, guarding, mass, organolmegaly, rebound, tenderness Rectal exam: PRESENT: deferred Gentrourinary exam: PRESENT: indwelling catheter Musculoskeletal exam: PRESENT: normal inspection Skin exam: PRESENT: dry, warm Results Laboratory Results: 06/23/16 04:46 06/23/16 04:46 06/22/16 06/23/16 06/23/16 03:31 04:46 04:46 WBC 6.3 RBC 3.17 L Hgb 10.6 L Hct 31.4 L MCV 99 H MCH 33.5 H MCHC 33.7 RDW 13.5 Plt Count 90 L Sodium 132.3 L Potassium 4.4 Chloride 100 Carbon Dioxide 26 Anion Gap 6 BUN 12 Creatinine 0.69 Est GFR ( Amer) > 60 Est GFR (Non-Af Amer) > 60 Glucose 107 Calcium 8.2 L Magnesium 1.4 L Urine Color Urine Appearance Urine pH Ur Specific [place] Urine Protein Urine Glucose (UA) Urine Ketones Urine Blood Urine Nitrite Ur Leukocyte Esterase Urine WBC (Auto) Urine RBC (Auto) 06/23/16 16:00 WBC RBC Hgb Hct MCV MCH MCHC RDW Plt Count Sodium Potassium Chloride Carbon Dioxide Anion Gap BUN Creatinine Est GFR ( Amer) Est GFR (Non-Af Amer) Glucose Calcium Magnesium Urine Color YELLOW Urine Appearance CLEAR Urine pH 7.0 Ur Specific [place] 1.006 Urine Protein NEGATIVE Urine Glucose (UA) NEGATIVE Urine Ketones NEGATIVE Urine Blood MODERATE H Urine Nitrite NEGATIVE Ur Leukocyte Esterase NEGATIVE Urine WBC (Auto) 4 Urine RBC (Auto) 91 06/21/16 06/21/16 06/21/16 15:09 15:09 21:15 Creatine Kinase 280 H 328 H CK-MB (CK-2) 4.06 Troponin I < 0.012 06/21/16 06/22/16 06/22/16 21:15 03:31 03:31 Creatine Kinase 435 H CK-MB (CK-2) 4.31 4.91 H Troponin I < 0.012 < 0.012 Impressions: Chest X-Ray 06/21/16 14:12 IMPRESSION: Obstructive lung disease. Minimal right basilar atelectasis Assessment & Plan - Diagnosis (1) Alcohol abuse Is this a current diagnosis for this admission?: Yes (2) COPD (chronic obstructive pulmonary disease) Is this a current diagnosis for this admission?: Yes (3) Status post total shoulder arthroplasty Is this a current diagnosis for this admission?: Yes (4) Tobacco abuse Is this a current diagnosis for this admission?: YesPlan: transdermal nicotine (5) Emphysema lung Is this a current diagnosis for this admission?: Yes (6) Cirrhosis Is this a current diagnosis for this admission?: Yes (7) Delirium tremens Is this a current diagnosis for this admission?: Yes (8) Hepatitis C Is this a current diagnosis for this admission?: Yes - Time Critical Time spent with patient: 35 or more minutes
[2016-06-24] MEDS: LORAZEPAM 24 MG/240 ML BAG IV PRN ×4 (01:31→20:53)
[2016-06-24] MEDS: PROPOFOL 100 ML IV PRN ×3 (01:31→20:53)
[2016-06-24] MEDS: IPRATROPIUM/ALBUTEROL 0.5-2.5 MG/3 ML AMPUL NEB SCH ×4 (02:10→20:16)
[2016-06-24] MEDS: MORPHINE SULFATE 10 MG/ML INJ IV PRN ×2 (02:42→14:37)
[2016-06-24 06:06] LABS: ARTERIAL BLOOD BASE EXCESS 2.2 mmol/L; ARTERIAL BLOOD O2 SATURATION 98.4 % (94-98)
[2016-06-24 06:18] LABS: ALANINE AMINOTRANSFERASE 22 U/L (21-72); ALBUMIN 2.4 g/dL (3.5-5.0); ALKALINE PHOSPHATASE 61 U/L (38-126); ANION GAP 5 (5-19); ASPARTATE AMINO TRANSFERASE 40 U/L (17-59); BILIRUBIN,DIRECT 0.4 mg/dL (0.0-0.4); BILIRUBIN,TOTAL 0.7 mg/dL (0.2-1.3); BLOOD UREA NITROGEN 7 mg/dL (7-20); CALCIUM 7.7 mg/dL (8.4-10.2); CARBON DIOXIDE 25 mmol/L (22-30); CHLORIDE 102 mmol/L (98-107); GLUCOSE 130 mg/dL (75-110); MAGNESIUM 1.8 mg/dL (1.6-2.3); POTASSIUM 3.8 mmol/L (3.6-5.0); SODIUM 132.1 mmol/L (137-145); TOTAL PROTEIN 4.5 g/dL (6.3-8.2)
[2016-06-24 06:21] LABS: ABSOLUTE EOSINOPHILS # (AUTO) 0.1 10^3/uL (0.0-0.6); ABSOLUTE LYMPHOCYTES (AUTO) 0.7 10^3/uL (0.5-4.7); ABSOLUTE MONOCYTES (AUTO) 0.5 10^3/uL (0.1-1.4); ABSOLUTE NEUT (AUTO) 4.4 10^3/uL (1.7-8.2); BASOPHILS % (AUTO) 0.4 % (0-2); EOSINOPHILS % (AUTO) 1.6 % (0-6); HEMATOCRIT 26.8 % (37.9-51.0); HEMOGLOBIN 9.3 g/dL (13.5-17.0); HGB HCT DIFFERENCE 1.1; LYMPHOCYTES % (AUTO) 12.1 % (13-45); MEAN CORPUSCULAR HEMOGLOBIN 34.1 pg (27.0-33.4); MEAN CORPUSCULAR HGB CONC 34.7 g/dL (32.0-36.0); MEAN CORPUSCULAR VOLUME 98 fl (80-97); MONOCYTES % (AUTO) 8.7 % (3-13); RED BLOOD COUNT 2.73 10^6/uL (4.35-5.55); RED CELL DISTRIBUTION WIDTH 13.3 % (11.5-14.0); SEGMENTED NEUTROPHILS % (AUTO) 77.2 % (42-78); WHITE BLOOD COUNT 5.7 10^3/uL (4.0-10.5)
[2016-06-24] MEDS: ASPIRIN 81 MG TABLET, CHEWABLE NG SCH (10:44)
[2016-06-24] MEDS: ATORVASTATIN CALCIUM 10 MG TABLET NG SCH (10:44)
[2016-06-24] MEDS: GABAPENTIN 300 MG CAPSULE NG SCH (10:44)
[2016-06-24] MEDS: DULOXETINE HCL 30 MG CAPSULE.DR PO SCH (10:53)
[2016-06-24] MEDS: LISINOPRIL 10 MG TABLET NG SCH (10:53)
[2016-06-24] MEDS: METOPROLOL TARTRATE 25 MG TABLET NG SCH (10:53)
[2016-06-24] MEDS: PANTOPRAZOLE SODIUM 40 MG VIAL IV SCH (12:45)
--- NOTE | 2016-06-24 13:17 | PDOC PROGRESS REPORT ---
Subjective Progress Note for:: 06/24/16 Subjective:: Patient has remained slightly hypotensive since being started on sedation for mechanical ventilation yesterday. I cannot obtain history from patient secondary to sedated/intubated state. Physical Exam Vital Signs: Temp Pulse Resp BP Pulse Ox 97.3 F 74 19 95/47 L 98 06/24/16 12:00 06/24/16 12:00 06/24/16 12:21 06/24/16 12:21 06/24/16 12:24 Intake & Output 06/23/16 06/24/16 06/25/16 06:59 06:59 06:59 Intake Total 890 3237 Output Total 2600 2075 225 Balance -1710 1162 -225 Weight 68.8 kg GENERAL: Sedated/intubated HEENT: Conjunctiva clear, nonicteric, moist mucous membranes, no JVD, midline trachea RESPIRATORY: Clear to auscultation bilaterally, no wheezes, no rhonchi CARDIAC: Regular rate and rhythm, no murmurs/gallops/rubs ABDOMEN: Soft, nondistended, nontender, positive bowel sounds, no rebound, no guarding EXTREMETIES: No edema, cyanosis, clubbing. immobilizer on right shoulder NEUROLOGIC: Sedated SKIN: No rash, wounds Results Laboratory Results: 06/24/16 05:32 06/24/16 05:32 06/23/16 06/23/16 06/24/16 16:00 18:07 05:32 WBC 5.7 RBC 2.73 L Hgb 9.3 L Hct 26.8 L MCV 98 H MCH 34.1 H MCHC 34.7 RDW 13.3 Plt Count 97 L Seg Neutrophils % 77.2 Lymphocytes % 12.1 L Monocytes % 8.7 Eosinophils % 1.6 Basophils % 0.4 Absolute Neutrophils 4.4 Absolute Lymphocytes 0.7 Absolute Monocytes 0.5 Absolute Eosinophils 0.1 Absolute Basophils 0.0 Carbonic Acid 1.18 HCO3/H2CO3 Ratio 23:1 ABG pH 7.46 H ABG pCO2 39.3 ABG pO2 165.5 H ABG HCO3 27.6 H ABG O2 Saturation 99.2 H ABG Base Excess 3.6 FiO2 50% Sodium Potassium Chloride Carbon Dioxide Anion Gap BUN Creatinine Est GFR ( Amer) Est GFR (Non-Af Amer) Glucose Calcium Magnesium Total Bilirubin AST ALT Alkaline Phosphatase Total Protein Albumin Urine Color YELLOW Urine Appearance CLEAR Urine pH 7.0 Ur Specific [place] 1.006 Urine Protein NEGATIVE Urine Glucose (UA) NEGATIVE Urine Ketones NEGATIVE Urine Blood MODERATE H Urine Nitrite NEGATIVE Ur Leukocyte Esterase NEGATIVE Urine WBC (Auto) 4 Urine RBC (Auto) 91 06/24/16 06/24/16 05:32 05:40 WBC RBC Hgb Hct MCV MCH MCHC RDW Plt Count Seg Neutrophils % Lymphocytes % Monocytes % Eosinophils % Basophils % Absolute Neutrophils Absolute Lymphocytes Absolute Monocytes Absolute Eosinophils Absolute Basophils Carbonic Acid 1.02 L HCO3/H2CO3 Ratio 24:1 ABG pH 7.49 H ABG pCO2 33.8 L ABG pO2 112.4 H ABG HCO3 25.3 ABG O2 Saturation 98.4 H ABG Base Excess 2.2 FiO2 35% Sodium 132.1 L Potassium 3.8 Chloride 102 Carbon Dioxide 25 Anion Gap 5 BUN 7 Creatinine 0.60 Est GFR ( Amer) > 60 Est GFR (Non-Af Amer) > 60 Glucose 130 H Calcium 7.7 L Magnesium 1.8 Total Bilirubin 0.7 AST 40 ALT 22 Alkaline Phosphatase 61 Total Protein 4.5 L Albumin 2.4 L Urine Color Urine Appearance Urine pH Ur Specific [place] Urine Protein Urine Glucose (UA) Urine Ketones Urine Blood Urine Nitrite Ur Leukocyte Esterase Urine WBC (Auto) Urine RBC (Auto) 06/21/16 06/21/16 06/21/16 15:09 15:09 21:15 Creatine Kinase 280 H 328 H CK-MB (CK-2) 4.06 Troponin I < 0.012 06/21/16 06/22/16 06/22/16 21:15 03:31 03:31 Creatine Kinase 435 H CK-MB (CK-2) 4.31 4.91 H Troponin I < 0.012 < 0.012 Impressions: Chest X-Ray 06/24/16 06:00 IMPRESSION: Mild right basilar atelectasis. NG tube with the tip just passed the GE junction and the side hole in the distal esophagus, advancement by approximately 5-7 cm recommended. Assessment & Plan - Diagnosis (1) Respiratory failure Is this a current diagnosis for this admission?: YesPlan: Secondary to acute DTs and medications required for acute DTs. Continue mechanical ventilation. Dr. Ricardo of pulmonary medicine managing. (2) Delirium tremens Is this a current diagnosis for this admission?: YesPlan: Continue Ativan drip for now. (3) Fever Is this a current diagnosis for this admission?: YesPlan: Chest x-ray shows no definite infiltrate. Urinalysis was negative. Blood cultures are pending. Sputum cultures pending. Started IV Rocephin on 2016 empirically. (4) Status post total shoulder arthroplasty Is this a current diagnosis for this admission?: YesPlan: Orthopedics managing. (5) Alcohol abuse Is this a current diagnosis for this admission?: YesPlan: Continue thiamine. Patient has some mild memory impairments likely secondary to Wernicke's. (6) CAD (coronary artery disease) Is this a current diagnosis for this admission?: Yes (7) COPD (chronic obstructive pulmonary disease) Is this a current diagnosis for this admission?: Yes (8) Cirrhosis Is this a current diagnosis for this admission?: Yes (9) HTN (hypertension) Is this a current diagnosis for this admission?: YesPlan: Hold oral medications for now while nothing by mouth. When necessary IV Lopressor. (10) Hepatitis C Is this a current diagnosis for this admission?: Yes (11) Hypomagnesemia Is this a current diagnosis for this admission?: YesPlan: Likely associated with acute alcohol withdrawal. Replace as needed. (12) Hypotension Is this a current diagnosis for this admission?: YesPlan: Secondary to sedation. (13) Severe mitral regurgitation Is this a current diagnosis for this admission?: YesPlan: Monitor respiratory status closely on IV fluids. (14) Tobacco abuse Is this a current diagnosis for this admission?: Yes (15) Thrombocytopenia Is this a current diagnosis for this admission?: Yes (16) DVT prophylaxis Is this a current diagnosis for this admission?: YesPlan: Avoid pharmacologic prophylaxis secondary to thrombocytopenia. SCDs. - Time Critical Time spent with patient: 35 or more minutes
--- NOTE | 2016-06-24 13:25 | PDOC PROGRESS REPORT ---
Subjective Progress Note for:: 06/24/16 Subjective:: intubated and sedated Physical Exam Vital Signs: Temp Pulse Resp BP Pulse Ox 99.7 F 73 18 99/54 L 99 06/24/16 04:00 06/24/16 02:10 06/24/16 06:30 06/24/16 06:21 06/24/16 06:30 Intake & Output 06/23/16 06/24/16 06/25/16 06:59 06:59 06:59 Intake Total 890 3237 Output Total 2600 2075 Balance -1710 1162 Weight 68.8 kg General appearance: PRESENT: no acute distress, disheveled, well-developed Head exam: PRESENT: atraumatic, normocephalic Eye exam: PRESENT: conjunctiva pale, EOMI Mouth exam: PRESENT: dry mucosa, neck supple, other - ET tube Neck exam: ABSENT: carotid bruit, JVD, lymphadenopathy, thyromegaly Respiratory exam: PRESENT: decreased breath sounds, prolonged expiratory phas, rhonchi, symmetrical, unlabored Cardiovascular exam: PRESENT: RRR, +S1, +S2 Pulses: PRESENT: normal radial pulses GI/Abdominal exam: PRESENT: normal bowel sounds, soft. ABSENT: distended, guarding, mass, organolmegaly, rebound, tenderness Rectal exam: PRESENT: deferred Gentrourinary exam: PRESENT: indwelling catheter Musculoskeletal exam: PRESENT: normal inspection Skin exam: PRESENT: dry, warm Results Laboratory Results: 06/24/16 05:32 06/24/16 05:32 06/23/16 06/23/16 06/24/16 16:00 18:07 05:32 WBC 5.7 RBC 2.73 L Hgb 9.3 L Hct 26.8 L MCV 98 H MCH 34.1 H MCHC 34.7 RDW 13.3 Plt Count 97 L Seg Neutrophils % 77.2 Lymphocytes % 12.1 L Monocytes % 8.7 Eosinophils % 1.6 Basophils % 0.4 Absolute Neutrophils 4.4 Absolute Lymphocytes 0.7 Absolute Monocytes 0.5 Absolute Eosinophils 0.1 Absolute Basophils 0.0 Carbonic Acid 1.18 HCO3/H2CO3 Ratio 23:1 ABG pH 7.46 H ABG pCO2 39.3 ABG pO2 165.5 H ABG HCO3 27.6 H ABG O2 Saturation 99.2 H ABG Base Excess 3.6 FiO2 50% Sodium Potassium Chloride Carbon Dioxide Anion Gap BUN Creatinine Est GFR ( Amer) Est GFR (Non-Af Amer) Glucose Calcium Magnesium Total Bilirubin AST ALT Alkaline Phosphatase Total Protein Albumin Urine Color YELLOW Urine Appearance CLEAR Urine pH 7.0 Ur Specific [place] 1.006 Urine Protein NEGATIVE Urine Glucose (UA) NEGATIVE Urine Ketones NEGATIVE Urine Blood MODERATE H Urine Nitrite NEGATIVE Ur Leukocyte Esterase NEGATIVE Urine WBC (Auto) 4 Urine RBC (Auto) 91 06/24/16 06/24/16 05:32 05:40 WBC RBC Hgb Hct MCV MCH MCHC RDW Plt Count Seg Neutrophils % Lymphocytes % Monocytes % Eosinophils % Basophils % Absolute Neutrophils Absolute Lymphocytes Absolute Monocytes Absolute Eosinophils Absolute Basophils Carbonic Acid 1.02 L HCO3/H2CO3 Ratio 24:1 ABG pH 7.49 H ABG pCO2 33.8 L ABG pO2 112.4 H ABG HCO3 25.3 ABG O2 Saturation 98.4 H ABG Base Excess 2.2 FiO2 35% Sodium 132.1 L Potassium 3.8 Chloride 102 Carbon Dioxide 25 Anion Gap 5 BUN 7 Creatinine 0.60 Est GFR ( Amer) > 60 Est GFR (Non-Af Amer) > 60 Glucose 130 H Calcium 7.7 L Magnesium 1.8 Total Bilirubin 0.7 AST 40 ALT 22 Alkaline Phosphatase 61 Total Protein 4.5 L Albumin 2.4 L Urine Color Urine Appearance Urine pH Ur Specific [place] Urine Protein Urine Glucose (UA) Urine Ketones Urine Blood Urine Nitrite Ur Leukocyte Esterase Urine WBC (Auto) Urine RBC (Auto) 06/21/16 06/21/16 06/21/16 15:09 15:09 21:15 Creatine Kinase 280 H 328 H CK-MB (CK-2) 4.06 Troponin I < 0.012 06/21/16 06/22/16 06/22/16 21:15 03:31 03:31 Creatine Kinase 435 H CK-MB (CK-2) 4.31 4.91 H Troponin I < 0.012 < 0.012 Impressions: Chest X-Ray 06/24/16 06:00 IMPRESSION: Mild right basilar atelectasis. NG tube with the tip just passed the GE junction and the side hole in the distal esophagus, advancement by approximately 5-7 cm recommended. Assessment & Plan - Diagnosis (1) Alcohol abuse Is this a current diagnosis for this admission?: Yes (2) COPD (chronic obstructive pulmonary disease) Is this a current diagnosis for this admission?: Yes (3) Status post total shoulder arthroplasty Is this a current diagnosis for this admission?: Yes (4) Tobacco abuse Is this a current diagnosis for this admission?: Yes (5) Emphysema lung Is this a current diagnosis for this admission?: Yes (6) Cirrhosis Is this a current diagnosis for this admission?: Yes (7) Delirium tremens Is this a current diagnosis for this admission?: Yes (8) Hepatitis C Is this a current diagnosis for this admission?: Yes - Time Critical Time spent with patient: 35 or more minutes
[2016-06-24] MEDS ORDERED: THIAMINE HCL 100 MG, FOLIC ACID 1 MG in NORMAL SALINE 50 ML IV SCH (14:00)
[2016-06-24] MEDS: THIAMINE HCL 100 MG, FOLIC ACID 1 MG in NORMAL SALINE 50 ML IV SCH (14:07)
[2016-06-24] MEDS ORDERED: CEFTRIAXONE 1 GM/D5W RTU 1 GM/50 ML RTUPB IV SCH (18:00)
[2016-06-24] MEDS: DEXTROSE 5%-NORMAL SALINE 1,000 ML IV PRN (23:33)
[2016-06-25] MEDS: IPRATROPIUM/ALBUTEROL 0.5-2.5 MG/3 ML AMPUL NEB SCH ×4 (01:44→19:55)
[2016-06-25] MEDS: MORPHINE SULFATE 10 MG/ML INJ IV PRN ×3 (02:30→23:57)
[2016-06-25] MEDS: PROPOFOL 100 ML IV PRN ×3 (03:03→15:55)
[2016-06-25] MEDS: LORAZEPAM 24 MG/240 ML BAG IV PRN ×2 (03:04→11:22)
[2016-06-25 05:41] LABS: ARTERIAL BLOOD BASE EXCESS 1.6 mmol/L; ARTERIAL BLOOD O2 SATURATION 97.4 % (94-98)
[2016-06-25 05:50] LABS: ABSOLUTE EOSINOPHILS # (AUTO) 0.2 10^3/uL (0.0-0.6); ABSOLUTE LYMPHOCYTES (AUTO) 0.7 10^3/uL (0.5-4.7); ABSOLUTE MONOCYTES (AUTO) 0.4 10^3/uL (0.1-1.4); BASOPHILS % (AUTO) 0.7 % (0-2); EOSINOPHILS % (AUTO) 5.4 % (0-6); HEMATOCRIT 25.3 % (37.9-51.0); HEMOGLOBIN 8.9 g/dL (13.5-17.0); HGB HCT DIFFERENCE 1.4; LYMPHOCYTES % (AUTO) 15.7 % (13-45); MEAN CORPUSCULAR HEMOGLOBIN 34.4 pg (27.0-33.4); MEAN CORPUSCULAR HGB CONC 35.1 g/dL (32.0-36.0); MEAN CORPUSCULAR VOLUME 98 fl (80-97); MONOCYTES % (AUTO) 9.7 % (3-13); RED BLOOD COUNT 2.58 10^6/uL (4.35-5.55); RED CELL DISTRIBUTION WIDTH 13.1 % (11.5-14.0); SEGMENTED NEUTROPHILS % (AUTO) 68.5 % (42-78); WHITE BLOOD COUNT 4.3 10^3/uL (4.0-10.5)
[2016-06-25 06:05] LABS: ALANINE AMINOTRANSFERASE 25 U/L (21-72); ALBUMIN 2.1 g/dL (3.5-5.0); ALKALINE PHOSPHATASE 57 U/L (38-126); ANION GAP 5 (5-19); ASPARTATE AMINO TRANSFERASE 33 U/L (17-59); BILIRUBIN,DIRECT 0.3 mg/dL (0.0-0.4); BILIRUBIN,TOTAL 0.5 mg/dL (0.2-1.3); BLOOD UREA NITROGEN 6 mg/dL (7-20); CALCIUM 7.8 mg/dL (8.4-10.2); CARBON DIOXIDE 25 mmol/L (22-30); CHLORIDE 104 mmol/L (98-107); CREATININE RESULT 0.58 mg/dL (0.52-1.25); GLUCOSE 145 mg/dL (75-110); MAGNESIUM 1.7 mg/dL (1.6-2.3); POTASSIUM 3.5 mmol/L (3.6-5.0); SODIUM 134.1 mmol/L (137-145); TOTAL PROTEIN 4.3 g/dL (6.3-8.2)
[2016-06-25] MEDS ORDERED: POTASSI CL 20 MEQ/50 ML RIDER 20 MEQ/50 ML RTUPB IV ONE (08:00)
[2016-06-25] MEDS: GABAPENTIN 300 MG CAPSULE NG SCH (08:24)
[2016-06-25] MEDS: ATORVASTATIN CALCIUM 10 MG TABLET NG SCH (08:24)
[2016-06-25] MEDS: METOPROLOL TARTRATE 25 MG TABLET NG SCH (08:25)
[2016-06-25] MEDS ORDERED: TOBRAMYCIN SULFATE INJ 80 MG/2 ML VIAL NEB SCH (08:45)
[2016-06-25] MEDS: DULOXETINE HCL 30 MG CAPSULE.DR PO SCH (09:19)
[2016-06-25] MEDS: LISINOPRIL 10 MG TABLET NG SCH (09:19)
[2016-06-25] MEDS: ASPIRIN 81 MG TABLET, CHEWABLE NG SCH (09:20)
--- NOTE | 2016-06-25 11:11 | PDOC PROGRESS REPORT ---
Subjective Progress Note for:: 06/25/16 Subjective:: intubated and sedated Physical Exam Vital Signs: Temp Pulse Resp BP Pulse Ox 97.8 F 70 15 97/55 L 100 06/25/16 08:00 06/25/16 08:00 06/25/16 08:00 06/25/16 08:00 06/25/16 08:00 Intake & Output 06/24/16 06/25/16 06/26/16 06:59 06:59 06:59 Intake Total 323 8 Output Total 5362 4274 45 Balance 1162 -493 -45 Weight 68.8 kg 67.6 kg General appearance: PRESENT: no acute distress, disheveled, well-developed, well -nourished Head exam: PRESENT: atraumatic, normocephalic Eye exam: PRESENT: conjunctiva pale Mouth exam: PRESENT: dry mucosa, neck supple, other - ET tube Neck exam: ABSENT: carotid bruit, JVD, lymphadenopathy, thyromegaly Respiratory exam: PRESENT: decreased breath sounds, prolonged expiratory phas, rhonchi, symmetrical, unlabored, wheezes Cardiovascular exam: PRESENT: RRR, +S1 Pulses: PRESENT: normal radial pulses GI/Abdominal exam: PRESENT: normal bowel sounds, soft. ABSENT: distended, guarding, mass, organolmegaly, rebound, tenderness Rectal exam: PRESENT: deferred Gentrourinary exam: PRESENT: indwelling catheter Musculoskeletal exam: PRESENT: normal inspection Skin exam: PRESENT: dry, warm Results Laboratory Results: 06/25/16 05:10 06/25/16 05:10 06/25/16 06/25/16 06/25/16 05:10 05:10 05:10 WBC 4.3 RBC 2.58 L Hgb 8.9 L Hct 25.3 L MCV 98 H MCH 34.4 H MCHC 35.1 RDW 13.1 Plt Count 118 L Seg Neutrophils % 68.5 Lymphocytes % 15.7 Monocytes % 9.7 Eosinophils % 5.4 Basophils % 0.7 Absolute Neutrophils 3.0 Absolute Lymphocytes 0.7 Absolute Monocytes 0.4 Absolute Eosinophils 0.2 Absolute Basophils 0.0 Carbonic Acid 1.22 HCO3/H2CO3 Ratio 21:1 ABG pH 7.43 ABG pCO2 40.5 ABG pO2 95.6 ABG HCO3 26.1 H ABG O2 Saturation 97.4 ABG Base Excess 1.6 FiO2 35% Sodium 134.1 L Potassium 3.5 L Chloride 104 Carbon Dioxide 25 Anion Gap 5 BUN 6 L Creatinine 0.58 Est GFR ( Amer) > 60 Est GFR (Non-Af Amer) > 60 Glucose 145 H Calcium 7.8 L Magnesium 1.7 Total Bilirubin 0.5 AST 33 ALT 25 Alkaline Phosphatase 57 Total Protein 4.3 L Albumin 2.1 L 06/21/16 06/21/16 06/21/16 15:09 15:09 21:15 Creatine Kinase 280 H 328 H CK-MB (CK-2) 4.06 Troponin I < 0.012 06/21/16 06/22/16 06/22/16 21:15 03:31 03:31 Creatine Kinase 435 H CK-MB (CK-2) 4.31 4.91 H Troponin I < 0.012 < 0.012 Impressions: Chest X-Ray 06/24/16 06:00 IMPRESSION: Mild right basilar atelectasis. NG tube with the tip just passed the GE junction and the side hole in the distal esophagus, advancement by approximately 5-7 cm recommended. Assessment & Plan - Diagnosis (1) Alcohol abuse Is this a current diagnosis for this admission?: Yes (2) COPD (chronic obstructive pulmonary disease) Is this a current diagnosis for this admission?: YesPlan: gnr in tracheal aspirate ---> jayla neb (3) Status post total shoulder arthroplasty Is this a current diagnosis for this admission?: Yes (4) Tobacco abuse Is this a current diagnosis for this admission?: YesPlan: transdermal nicotine (5) Emphysema lung Is this a current diagnosis for this admission?: Yes (6) Cirrhosis Is this a current diagnosis for this admission?: Yes (7) Delirium tremens Is this a current diagnosis for this admission?: Yes (8) Hepatitis C Is this a current diagnosis for this admission?: Yes - Time Critical Time spent with patient: 25-34 minutes
--- NOTE | 2016-06-25 11:42 | PDOC PROGRESS REPORT ---
Subjective Progress Note for:: 06/25/16 Subjective:: No new issues reported. I cannot obtain history from patient secondary to sedated/intubated state. Physical Exam Vital Signs: Temp Pulse Resp BP Pulse Ox 97.7 F 90 14 111/64 98 06/25/16 09:48 06/25/16 09:48 06/25/16 10:50 06/25/16 10:50 06/25/16 10:50 Intake & Output 06/24/16 06/25/16 06/26/16 06:59 06:59 06:59 Intake Total 3232031 Output Total 2 4505 355 Balance 1162 -493 -355 Weight 68.8 kg 67.6 kg GENERAL: Sedated/intubated HEENT: Conjunctiva clear, nonicteric, moist mucous membranes, no JVD, midline trachea RESPIRATORY: Clear to auscultation bilaterally, no wheezes, no rhonchi CARDIAC: Regular rate and rhythm, no murmurs/gallops/rubs ABDOMEN: Soft, nondistended, nontender, positive bowel sounds, no rebound, no guarding EXTREMETIES: No edema, cyanosis, clubbing. immobilizer on right shoulder NEUROLOGIC: Sedated SKIN: No rash, wounds Results Laboratory Results: 06/25/16 05:10 06/25/16 05:10 06/25/16 06/25/16 06/25/16 05:10 05:10 05:10 WBC 4.3 RBC 2.58 L Hgb 8.9 L Hct 25.3 L MCV 98 H MCH 34.4 H MCHC 35.1 RDW 13.1 Plt Count 118 L Seg Neutrophils % 68.5 Lymphocytes % 15.7 Monocytes % 9.7 Eosinophils % 5.4 Basophils % 0.7 Absolute Neutrophils 3.0 Absolute Lymphocytes 0.7 Absolute Monocytes 0.4 Absolute Eosinophils 0.2 Absolute Basophils 0.0 Carbonic Acid 1.22 HCO3/H2CO3 Ratio 21:1 ABG pH 7.43 ABG pCO2 40.5 ABG pO2 95.6 ABG HCO3 26.1 H ABG O2 Saturation 97.4 ABG Base Excess 1.6 FiO2 35% Sodium 134.1 L Potassium 3.5 L Chloride 104 Carbon Dioxide 25 Anion Gap 5 BUN 6 L Creatinine 0.58 Est GFR ( Amer) > 60 Est GFR (Non-Af Amer) > 60 Glucose 145 H Calcium 7.8 L Magnesium 1.7 Total Bilirubin 0.5 AST 33 ALT 25 Alkaline Phosphatase 57 Total Protein 4.3 L Albumin 2.1 L 06/23/16 16:00 Catheterized Urine Urine Culture - Final NO GROWTH 2 DAYS 06/21/16 06/21/16 06/21/16 15:09 15:09 21:15 Creatine Kinase 280 H 328 H CK-MB (CK-2) 4.06 Troponin I < 0.012 06/21/16 06/22/16 06/22/16 21:15 03:31 03:31 Creatine Kinase 435 H CK-MB (CK-2) 4.31 4.91 H Troponin I < 0.012 < 0.012 Impressions: Chest X-Ray 06/24/16 06:00 IMPRESSION: Mild right basilar atelectasis. NG tube with the tip just passed the GE junction and the side hole in the distal esophagus, advancement by approximately 5-7 cm recommended. Assessment & Plan - Diagnosis (1) Respiratory failure Is this a current diagnosis for this admission?: YesPlan: Secondary to acute DTs and medications required for acute DTs. Continue mechanical ventilation. Dr. Ricardo of pulmonary medicine managing. (2) Delirium tremens Is this a current diagnosis for this admission?: YesPlan: Continue Ativan drip for now. (3) Pneumonia Is this a current diagnosis for this admission?: YesPlan: Sputum growing gram-negative rods. Discontinue Rocephin. Start IV cefepime and INH tobramycin pending further cultures. (4) Status post total shoulder arthroplasty Is this a current diagnosis for this admission?: YesPlan: Orthopedics managing. (5) Alcohol abuse Is this a current diagnosis for this admission?: YesPlan: Continue thiamine. Patient has some mild memory impairments likely secondary to Wernicke's. (6) CAD (coronary artery disease) Is this a current diagnosis for this admission?: Yes (7) COPD (chronic obstructive pulmonary disease) Is this a current diagnosis for this admission?: Yes (8) Cirrhosis Is this a current diagnosis for this admission?: Yes (9) HTN (hypertension) Is this a current diagnosis for this admission?: YesPlan: Hold oral medications for now while nothing by mouth. When necessary IV Lopressor. (10) Hepatitis C Is this a current diagnosis for this admission?: Yes (11) Hypomagnesemia Is this a current diagnosis for this admission?: YesPlan: Likely associated with acute alcohol withdrawal. Replace as needed. (12) Hypotension Is this a current diagnosis for this admission?: YesPlan: Hold oral antihypertensive. (13) Severe mitral regurgitation Is this a current diagnosis for this admission?: YesPlan: Monitor respiratory status closely on IV fluids. (14) Tobacco abuse Is this a current diagnosis for this admission?: Yes (15) Thrombocytopenia Is this a current diagnosis for this admission?: Yes (16) DVT prophylaxis Is this a current diagnosis for this admission?: Yes - Time Critical Time spent with patient: 35 or more minutes
[2016-06-25] MEDS ORDERED: LEVOFLOXACIN 750 MG/D5W RTU 750 MG/150 ML RTUPB IV SCH (12:00)
[2016-06-25] MEDS: PANTOPRAZOLE SODIUM 40 MG VIAL IV SCH (12:51)
[2016-06-25] MEDS: DEXTROSE 5%-NORMAL SALINE 1,000 ML IV PRN (13:30)
[2016-06-25] MEDS: CEFEPIME 1 GM/D5W RTU 1 GM/50 ML RTUPB IV SCH (14:41)
[2016-06-25] MEDS: THIAMINE HCL 100 MG, FOLIC ACID 1 MG in NORMAL SALINE 50 ML IV SCH (14:43)
[2016-06-25] MEDS: TOBRAMYCIN SULFATE NEB 40 MG/ML 30 ML NEB SCH (19:56)
[2016-06-26] MEDS: PROPOFOL 100 ML IV PRN ×3 (00:46→17:32)
[2016-06-26] MEDS: CEFEPIME 1 GM/D5W RTU 1 GM/50 ML RTUPB IV SCH ×2 (01:32→14:26)
[2016-06-26] MEDS: IPRATROPIUM/ALBUTEROL 0.5-2.5 MG/3 ML AMPUL NEB SCH ×4 (01:38→20:06)
[2016-06-26 04:12] LABS: ABSOLUTE EOSINOPHILS # (AUTO) 0.3 10^3/uL (0.0-0.6); ABSOLUTE LYMPHOCYTES (AUTO) 0.8 10^3/uL (0.5-4.7); ABSOLUTE MONOCYTES (AUTO) 0.6 10^3/uL (0.1-1.4); BASOPHILS % (AUTO) 0.8 % (0-2); EOSINOPHILS % (AUTO) 6.3 % (0-6); HEMOGLOBIN 9.2 g/dL (13.5-17.0); HGB HCT DIFFERENCE 0.6; LYMPHOCYTES % (AUTO) 17.1 % (13-45); MEAN CORPUSCULAR HEMOGLOBIN 34.2 pg (27.0-33.4); MEAN CORPUSCULAR HGB CONC 34.2 g/dL (32.0-36.0); MEAN CORPUSCULAR VOLUME 100 fl (80-97); MONOCYTES % (AUTO) 12.3 % (3-13); RED BLOOD COUNT 2.69 10^6/uL (4.35-5.55); RED CELL DISTRIBUTION WIDTH 13.7 % (11.5-14.0); SEGMENTED NEUTROPHILS % (AUTO) 63.5 % (42-78); WHITE BLOOD COUNT 4.7 10^3/uL (4.0-10.5)
[2016-06-26 04:12] LABS: ARTERIAL BLOOD BASE EXCESS 3.4 mmol/L; ARTERIAL BLOOD O2 SATURATION 97.1 % (94-98)
[2016-06-26] MEDS: DEXTROSE 5%-NORMAL SALINE 1,000 ML IV PRN ×2 (04:17→17:31)
[2016-06-26 04:29] LABS: ALANINE AMINOTRANSFERASE 24 U/L (21-72); ALBUMIN 2.1 g/dL (3.5-5.0); ALKALINE PHOSPHATASE 65 U/L (38-126); ANION GAP 5 (5-19); ASPARTATE AMINO TRANSFERASE 29 U/L (17-59); BILIRUBIN,DIRECT 0.5 mg/dL (0.0-0.4); BILIRUBIN,TOTAL 0.9 mg/dL (0.2-1.3); BLOOD UREA NITROGEN 6 mg/dL (7-20); CALCIUM 7.8 mg/dL (8.4-10.2); CARBON DIOXIDE 25 mmol/L (22-30); CHLORIDE 106 mmol/L (98-107); CREATININE RESULT 0.59 mg/dL (0.52-1.25); GLUCOSE 122 mg/dL (75-110); MAGNESIUM 1.6 mg/dL (1.6-2.3); POTASSIUM 3.8 mmol/L (3.6-5.0); SODIUM 136.1 mmol/L (137-145); TOTAL PROTEIN 4.5 g/dL (6.3-8.2)
[2016-06-26] MEDS: GABAPENTIN 300 MG CAPSULE NG SCH (07:49)
[2016-06-26] MEDS: ATORVASTATIN CALCIUM 10 MG TABLET NG SCH (07:49)
[2016-06-26] MEDS: TOBRAMYCIN SULFATE NEB 40 MG/ML 30 ML NEB SCH ×2 (08:31→20:16)
--- NOTE | 2016-06-26 09:04 | PDOC PROGRESS REPORT ---
Subjective Progress Note for:: 06/26/16 Subjective:: This is a follow-up visit for acute respiratory failure and DTs. Patient is currently intubated review of systems cannot appropriately be obtained. There been no acute events overnight. Physical Exam Vital Signs: Temp Pulse Resp BP Pulse Ox 98.7 F 86 14 97/51 L 98 06/26/16 04:00 06/26/16 01:45 06/26/16 06:30 06/26/16 05:51 06/26/16 06:30 Intake & Output 06/25/16 06/26/16 06/27/16 06:59 06:59 06:59 Intake Total 2031 2469 Output Total 2525 1735 Balance -493 734 Weight 67.6 kg 68.3 kg PHYSICAL EXAM: LINES: Right femoral is in place and appears clean dry and intact Vent settings: Tidal volume 500. Rate 12. FiO2 30%. PEEP 5 GENERAL: This is a well-developed chronically ill appearing white male currently on the ventilator HEENT: Normocephalic atraumatic. Trachea is midline. Sclera and icteric HEART: Regular rate and rhythm. No murmurs rubs or gallops. LUNGS: Clear to auscultation bilaterally with equal rise and fall of the chest. He is currently intubated. ABDOMEN: Soft, nontender, nondistended with normoactive bowel sounds. Tube feeds Are going in at 20 mL per hour EXTREMITIES: No clubbing cyanosis or edema. 1+ peripheral pulses. Cool extremities. Right shoulder is appropriately bandaged. Bandages are clean dry and intact. The patient does not grimace with any palpation of the shoulder. NEURO: Patient is currently sedated. Ativan drip has been discontinued for a number of hours. Propofol drip has been turned off for the last 15 minutes. The patient does stir in response to hearing his name and being shaken in the shoulder. Full neurological assessment is not able to be obtained at this time. : Seo catheter is in place and draining dark kendrick urine. I believe the bag has recently been emptied there is no more than 30 mL currently in the chamber. Results Laboratory Results: 06/26/16 03:50 06/26/16 03:50 06/26/16 06/26/16 06/26/16 03:50 03:50 04:02 WBC 4.7 RBC 2.69 L Hgb 9.2 L Hct 27.0 L MCV 100 H MCH 34.2 H MCHC 34.2 RDW 13.7 Plt Count 127 L Seg Neutrophils % 63.5 Lymphocytes % 17.1 Monocytes % 12.3 Eosinophils % 6.3 H Basophils % 0.8 Absolute Neutrophils 3.0 Absolute Lymphocytes 0.8 Absolute Monocytes 0.6 Absolute Eosinophils 0.3 Absolute Basophils 0.0 Carbonic Acid 1.16 HCO3/H2CO3 Ratio 23:1 ABG pH 7.47 H ABG pCO2 38.4 ABG pO2 86.7 ABG HCO3 27.3 H ABG O2 Saturation 97.1 ABG Base Excess 3.4 FiO2 30% Sodium 136.1 L Potassium 3.8 Chloride 106 Carbon Dioxide 25 Anion Gap 5 BUN 6 L Creatinine 0.59 Est GFR ( Amer) > 60 Est GFR (Non-Af Amer) > 60 Glucose 122 H Calcium 7.8 L Magnesium 1.6 Total Bilirubin 0.9 AST 29 ALT 24 Alkaline Phosphatase 65 Total Protein 4.5 L Albumin 2.1 L 06/23/16 16:00 Catheterized Urine Urine Culture - Final NO GROWTH 2 DAYS 06/21/16 06/21/16 06/21/16 15:09 15:09 21:15 Creatine Kinase 280 H 328 H CK-MB (CK-2) 4.06 Troponin I < 0.012 06/21/16 06/22/16 06/22/16 21:15 03:31 03:31 Creatine Kinase 435 H CK-MB (CK-2) 4.31 4.91 H Troponin I < 0.012 < 0.012 Impressions: KUB X-Ray 06/25/16 00:00 IMPRESSION: Nasogastric catheter is present with tip overlying the lower abdominal midline, probable antral region of the stomach. Chest X-Ray 06/26/16 06:00 IMPRESSION: Small to moderate right basilar effusion slightly worsened. Lines and tubes. Assessment & Plan - Diagnosis (1) Acute hypoxemic respiratory failure Plan: Patient is currently intubated and receiving a sedation vacation. Dr. Ricardo has been consulted. We will continue weaning see if he can handle the protocol. Extubate if appropriate. Management per pulmonology. (2) Delirium tremens Plan: Ativan drip is currently off. The suspended on this part of his sedation medication. We'll see how he responds once he is fully awake. He is currently in restraints. (3) Alcohol abuse Plan: Cessation is advised. We will will be to get this patient over this particular antonino and then discuss with him his intentions going forward. Continue thiamine folate and multivitamin. (4) Status post total shoulder arthroplasty Qualifiers: Laterality: right Qualified Code(s): Z96.611 - Presence of right artificial shoulder joint Plan: Orthopedic surgery is following. (5) Pneumonia Qualifiers: Pneumonia type: due to other aerobic Gram-negative bacteria Plan: Patient is currently on cefepime as well as tobramycin nebulizers. Gram- negative rods were found in patients trach aspirate. Await final identification and susceptibilities. (6) COPD (chronic obstructive pulmonary disease) Plan: This is without acute exacerbation. He is currently receiving nebulizers as needed. (7) Cirrhosis Qualifiers: Hepatic cirrhosis type: alcoholic cirrhosis Is this a current diagnosis for this admission?: Yes (8) HTN (hypertension) Is this a current diagnosis for this admission?: YesPlan: Patient's blood pressure is currently stable in the low 100s. His outpatient antihypertensives are currently being held. He has when necessary medications available should his blood pressure become uncontrollable. However, patient has had episodes of hypotension during this admission so we should be careful when administering antihypertensives until it is necessary. (9) Hypomagnesemia Is this a current diagnosis for this admission?: YesPlan: Low normal today. Replace per protocol. (10) Hypotension Is this a current diagnosis for this admission?: YesPlan: Currently resolved. (11) Thrombocytopenia Is this a current diagnosis for this admission?: YesPlan: Secondary underlying alcoholism and cirrhosis. Currently stable in the 120s (12) Tobacco abuse Is this a current diagnosis for this admission?: YesPlan: Cessation is advised. The patient has transdermal nicotine patch. - Time Critical Time spent with patient: 25-34 minutes - Inpatient Certification Based on my medical assessment, after consideration of the patient's comorbidities, presenting symptoms, or acuity I expect that the services needed warrant INPATIENT care.: Yes Medical Necessity: Significant Comorbidiites Make Outpatient Treatment Too Risky , Need Close Monitoring Due to Risk of Patient Decompensation
[2016-06-26] MEDS: DULOXETINE HCL 30 MG CAPSULE.DR PO SCH (09:10)
[2016-06-26] MEDS: ASPIRIN 81 MG TABLET, CHEWABLE NG SCH (09:54)
--- NOTE | 2016-06-26 13:00 | PDOC PROGRESS REPORT ---
Subjective Progress Note for:: 06/26/16 Subjective:: intubated and sedated Physical Exam Vital Signs: Temp Pulse Resp BP Pulse Ox 98.7 F 86 14 97/51 L 98 06/26/16 04:00 06/26/16 01:45 06/26/16 06:30 06/26/16 05:51 06/26/16 06:30 Intake & Output 06/25/16 06/26/16 06/27/16 06:59 06:59 06:59 Intake Total 2 7069 Output Total 2529 1735 75 Balance -493 734 -75 Weight 67.6 kg 68.3 kg General appearance: PRESENT: no acute distress, disheveled, thin, well-developed Head exam: PRESENT: atraumatic, normocephalic Eye exam: PRESENT: conjunctiva pale Mouth exam: PRESENT: dry mucosa, neck supple, other - ET tube Neck exam: ABSENT: carotid bruit, JVD, lymphadenopathy, thyromegaly Respiratory exam: PRESENT: decreased breath sounds, prolonged expiratory phas, rhonchi, symmetrical, unlabored Cardiovascular exam: PRESENT: RRR, +S1, +S2 Pulses: PRESENT: normal radial pulses GI/Abdominal exam: PRESENT: normal bowel sounds, soft. ABSENT: distended, guarding, mass, organolmegaly, rebound, tenderness Rectal exam: PRESENT: deferred Gentrourinary exam: PRESENT: indwelling catheter Musculoskeletal exam: PRESENT: normal inspection Skin exam: PRESENT: dry, warm Results Laboratory Results: 06/26/16 03:50 06/26/16 03:50 06/26/16 06/26/16 06/26/16 03:50 03:50 04:02 WBC 4.7 RBC 2.69 L Hgb 9.2 L Hct 27.0 L MCV 100 H MCH 34.2 H MCHC 34.2 RDW 13.7 Plt Count 127 L Seg Neutrophils % 63.5 Lymphocytes % 17.1 Monocytes % 12.3 Eosinophils % 6.3 H Basophils % 0.8 Absolute Neutrophils 3.0 Absolute Lymphocytes 0.8 Absolute Monocytes 0.6 Absolute Eosinophils 0.3 Absolute Basophils 0.0 Carbonic Acid 1.16 HCO3/H2CO3 Ratio 23:1 ABG pH 7.47 H ABG pCO2 38.4 ABG pO2 86.7 ABG HCO3 27.3 H ABG O2 Saturation 97.1 ABG Base Excess 3.4 FiO2 30% Sodium 136.1 L Potassium 3.8 Chloride 106 Carbon Dioxide 25 Anion Gap 5 BUN 6 L Creatinine 0.59 Est GFR ( Amer) > 60 Est GFR (Non-Af Amer) > 60 Glucose 122 H Calcium 7.8 L Magnesium 1.6 Total Bilirubin 0.9 AST 29 ALT 24 Alkaline Phosphatase 65 Total Protein 4.5 L Albumin 2.1 L 06/23/16 16:00 Catheterized Urine Urine Culture - Final NO GROWTH 2 DAYS 06/21/16 06/21/16 06/21/16 15:09 15:09 21:15 Creatine Kinase 280 H 328 H CK-MB (CK-2) 4.06 Troponin I < 0.012 06/21/16 06/22/16 06/22/16 21:15 03:31 03:31 Creatine Kinase 435 H CK-MB (CK-2) 4.31 4.91 H Troponin I < 0.012 < 0.012 Impressions: KUB X-Ray 06/25/16 00:00 IMPRESSION: Nasogastric catheter is present with tip overlying the lower abdominal midline, probable antral region of the stomach. Chest X-Ray 06/26/16 06:00 IMPRESSION: Small to moderate right basilar effusion slightly worsened. Lines and tubes. Assessment & Plan - Diagnosis (1) Alcohol abuse Is this a current diagnosis for this admission?: Yes (2) COPD (chronic obstructive pulmonary disease) Is this a current diagnosis for this admission?: Yes (3) Status post total shoulder arthroplasty Qualifiers: Laterality: right Qualified Code(s): Z96.611 - Presence of right artificial shoulder joint Is this a current diagnosis for this admission?: Yes (4) Tobacco abuse Is this a current diagnosis for this admission?: Yes (5) Emphysema lung Is this a current diagnosis for this admission?: YesPlan: MIN Vol,R Rate FIO2 airway pressure sugget patient may tolerate extubate (6) Cirrhosis Qualifiers: Hepatic cirrhosis type: alcoholic cirrhosis Is this a current diagnosis for this admission?: Yes (7) Delirium tremens Is this a current diagnosis for this admission?: Yes (8) Hepatitis C Is this a current diagnosis for this admission?: Yes - Time Time Spent with patient: 35 or more minutes - 55 min unable to extubate
[2016-06-26] MEDS: THIAMINE HCL 100 MG, FOLIC ACID 1 MG in NORMAL SALINE 50 ML IV SCH (14:33)
[2016-06-27] MEDS: CEFEPIME 1 GM/D5W RTU 1 GM/50 ML RTUPB IV SCH ×2 (01:01→13:45)
[2016-06-27] MEDS: IPRATROPIUM/ALBUTEROL 0.5-2.5 MG/3 ML AMPUL NEB SCH ×4 (02:20→20:35)
[2016-06-27] MEDS: DEXTROSE 5%-NORMAL SALINE 1,000 ML IV PRN ×2 (04:15→17:19)
[2016-06-27 04:56] LABS: ARTERIAL BLOOD BASE EXCESS 1.6 mmol/L
[2016-06-27 04:57] LABS: ABSOLUTE EOSINOPHILS # (AUTO) 0.3 10^3/uL (0.0-0.6); ABSOLUTE LYMPHOCYTES (AUTO) 0.8 10^3/uL (0.5-4.7); ABSOLUTE MONOCYTES (AUTO) 0.4 10^3/uL (0.1-1.4); ABSOLUTE NEUT (AUTO) 2.9 10^3/uL (1.7-8.2); BASOPHILS % (AUTO) 0.6 % (0-2); EOSINOPHILS % (AUTO) 6.9 % (0-6); HEMATOCRIT 27.1 % (37.9-51.0); HEMOGLOBIN 9.3 g/dL (13.5-17.0); HGB HCT DIFFERENCE 0.8; LYMPHOCYTES % (AUTO) 17.9 % (13-45); MEAN CORPUSCULAR HEMOGLOBIN 33.7 pg (27.0-33.4); MEAN CORPUSCULAR HGB CONC 34.5 g/dL (32.0-36.0); MEAN CORPUSCULAR VOLUME 98 fl (80-97); MONOCYTES % (AUTO) 9.5 % (3-13); RED BLOOD COUNT 2.78 10^6/uL (4.35-5.55); RED CELL DISTRIBUTION WIDTH 13.4 % (11.5-14.0); SEGMENTED NEUTROPHILS % (AUTO) 65.1 % (42-78); WHITE BLOOD COUNT 4.5 10^3/uL (4.0-10.5)
[2016-06-27 05:13] LABS: ALANINE AMINOTRANSFERASE 29 U/L (21-72); ALBUMIN 2.1 g/dL (3.5-5.0); ALKALINE PHOSPHATASE 79 U/L (38-126); ASPARTATE AMINO TRANSFERASE 31 U/L (17-59); BILIRUBIN,DIRECT 0.4 mg/dL (0.0-0.4); BILIRUBIN,TOTAL 0.8 mg/dL (0.2-1.3); BLOOD UREA NITROGEN 10 mg/dL (7-20); CALCIUM 7.9 mg/dL (8.4-10.2); CREATININE RESULT 0.57 mg/dL (0.52-1.25); GLUCOSE 144 mg/dL (75-110); MAGNESIUM 1.6 mg/dL (1.6-2.3); PHOSPHORUS 4.1 mg/dL (2.5-4.5); POTASSIUM 3.9 mmol/L (3.6-5.0); TOTAL PROTEIN 4.5 g/dL (6.3-8.2); TRIGLYCERIDES 158 mg/dL (<150)
[2016-06-27 05:24] LABS: CARBON DIOXIDE 26 mmol/L (22-30); CHLORIDE 106 mmol/L (98-107); SODIUM 134.6 mmol/L (137-145)
[2016-06-27 05:27] LABS: ANION GAP 3 (5-19)
[2016-06-27] MEDS: PROPOFOL 100 ML IV PRN (06:18)
[2016-06-27] MEDS: MORPHINE SULFATE 10 MG/ML INJ IV PRN ×2 (08:24→21:34)
[2016-06-27] MEDS: TOBRAMYCIN SULFATE NEB 40 MG/ML 30 ML NEB SCH ×2 (09:02→20:35)
[2016-06-27] MEDS ORDERED: POTASSI CL 20 MEQ/50 ML RIDER 50 ML IV ONE (09:33)
--- NOTE | 2016-06-27 09:40 | PDOC PROGRESS REPORT ---
Subjective Progress Note for:: 06/27/16 Subjective:: This is a follow-up visit for acute respiratory failure and DTs. Patient is currently intubated review of systems cannot appropriately be obtained. There been no acute events overnight. Physical Exam Vital Signs: Temp Pulse Resp BP Pulse Ox 98.8 F 79 22 H 107/58 L 97 06/27/16 08:00 06/27/16 09:02 06/27/16 09:02 06/27/16 05:51 06/27/16 09:02 Intake & Output 06/26/16 06/27/16 06/28/16 06:59 06:59 06:59 Intake Total 2469 2724 Output Total 1735 1255 75 Balance 734 1469 -75 Weight 68.3 kg 70 kg PHYSICAL EXAM: LINES: Right femoral is in place and appears clean dry and intact Vent settings: Tidal volume 500. Rate 23. FiO2 30%. PEEP 5 Drips: Diprivan GENERAL: This is a well-developed chronically ill appearing white male currently on the ventilator HEENT: Normocephalic atraumatic. Trachea is midline. Sclera and icteric HEART: Regular rate and rhythm. No murmurs rubs or gallops. LUNGS: Clear to auscultation bilaterally with equal rise and fall of the chest. He is currently intubated. ABDOMEN: Soft, nontender, nondistended with normoactive bowel sounds. Tube feeds Are going in at 0 mL per hour EXTREMITIES: No clubbing cyanosis or edema. 1+ peripheral pulses. Warm extremities. Right shoulder is appropriately bandaged. Doyle are intact. Bandages are clean dry and intact. The patient does not grimace with any palpation of the shoulder. NEURO: Patient is currently sedated. Ativan drip has been discontinued for a number of hours in preparation for weaning trial. Propofol drip continues at the moment. The patient does not stir in response to hearing his name and being shaken in the shoulder. Full neurological assessment is not able to be obtained at this time. : Seo catheter is in place and draining dark kendrick urine. Results Laboratory Results: 06/27/16 04:45 06/27/16 04:45 06/27/16 06/27/16 06/27/16 04:45 04:45 04:45 WBC 4.5 RBC 2.78 L Hgb 9.3 L Hct 27.1 L MCV 98 H MCH 33.7 H MCHC 34.5 RDW 13.4 Plt Count 152 Seg Neutrophils % 65.1 Lymphocytes % 17.9 Monocytes % 9.5 Eosinophils % 6.9 H Basophils % 0.6 Absolute Neutrophils 2.9 Absolute Lymphocytes 0.8 Absolute Monocytes 0.4 Absolute Eosinophils 0.3 Absolute Basophils 0.0 Carbonic Acid 1.03 L HCO3/H2CO3 Ratio 23:1 ABG pH 7.48 H ABG pCO2 34.3 L ABG pO2 84.6 ABG HCO3 24.7 ABG O2 Saturation 97.0 ABG Base Excess 1.6 FiO2 30% Sodium 134.6 L Potassium 3.9 Chloride 106 Carbon Dioxide 26 Anion Gap 3 L BUN 10 Creatinine 0.57 Est GFR ( Amer) > 60 Est GFR (Non-Af Amer) > 60 Glucose 144 H Calcium 7.9 L Phosphorus 4.1 Magnesium 1.6 Total Bilirubin 0.8 AST 31 ALT 29 Alkaline Phosphatase 79 Total Protein 4.5 L Albumin 2.1 L Triglycerides 158 H 06/24/16 06:45 Tracheal Aspirate Gram Stain - Final 06/21/16 06/21/16 06/21/16 15:09 15:09 21:15 Creatine Kinase 280 H 328 H CK-MB (CK-2) 4.06 Troponin I < 0.012 06/21/16 06/22/16 06/22/16 21:15 03:31 03:31 Creatine Kinase 435 H CK-MB (CK-2) 4.31 4.91 H Troponin I < 0.012 < 0.012 Impressions: KUB X-Ray 06/25/16 00:00 IMPRESSION: Nasogastric catheter is present with tip overlying the lower abdominal midline, probable antral region of the stomach. Chest X-Ray 06/27/16 06:00 IMPRESSION: Stable including a small right basilar effusion -opacity. Lines and tubes. Assessment & Plan - Diagnosis (1) Acute hypoxemic respiratory failure Plan: Patient is currently intubated and receiving a sedation vacations as per protocol. Dr. Ricardo has been consulted. We will continue weaning see if he can handle the protocol. Extubate if appropriate. Management per pulmonology. (2) Delirium tremens Is this a current diagnosis for this admission?: YesPlan: Ativan drip is currently off as part of the sedation vacation. We'll see how he responds once he is fully awake. He is currently in restraints. (3) Alcohol abuse Is this a current diagnosis for this admission?: YesPlan: Cessation is advised. We will will be to get this patient over this particular antonino and then discuss with him his intentions going forward. Continue thiamine folate and multivitamin. (4) Status post total shoulder arthroplasty Qualifiers: Laterality: right Qualified Code(s): Z96.611 - Presence of right artificial shoulder joint Is this a current diagnosis for this admission?: YesPlan: Orthopedic surgery is following. (5) Pneumonia Qualifiers: Pneumonia type: due to other aerobic Gram-negative bacteria Is this a current diagnosis for this admission?: YesPlan: Patient is currently on cefepime as well as tobramycin nebulizers. Serratia was found in patients trach aspirate. It is susceptible to both antibiotics. Will continue for today and then discontinue tobramycin nebulizers tomorrow. (6) COPD (chronic obstructive pulmonary disease) Is this a current diagnosis for this admission?: YesPlan: This is without acute exacerbation. He is currently receiving nebulizers as needed. (7) Cirrhosis Qualifiers: Hepatic cirrhosis type: alcoholic cirrhosis Is this a current diagnosis for this admission?: Yes (8) HTN (hypertension) Is this a current diagnosis for this admission?: YesPlan: Patient's blood pressure is currently stable in the low 100s. His outpatient antihypertensives are currently being held. He has when necessary medications available should his blood pressure become uncontrollable. However, patient has had episodes of hypotension during this admission so we should be careful when administering antihypertensives until it is necessary. (9) Hypomagnesemia Is this a current diagnosis for this admission?: YesPlan: Replace per protocol. (10) Hypotension Is this a current diagnosis for this admission?: Yes (11) Thrombocytopenia Is this a current diagnosis for this admission?: YesPlan: Secondary underlying alcoholism and cirrhosis. Resolved. (12) Tobacco abuse Is this a current diagnosis for this admission?: YesPlan: Cessation is advised. The patient has transdermal nicotine patch.
[2016-06-27] MEDS: GABAPENTIN 300 MG CAPSULE NG SCH (10:17)
[2016-06-27] MEDS: ATORVASTATIN CALCIUM 10 MG TABLET NG SCH (10:18)
[2016-06-27] MEDS: ASPIRIN 81 MG TABLET, CHEWABLE NG SCH (10:19)
--- NOTE | 2016-06-27 12:04 | PDOC PROGRESS REPORT ---
Subjective Progress Note for:: 06/27/16 Subjective:: intubated and sedated Physical Exam Vital Signs: Temp Pulse Resp BP Pulse Ox 98.9 F 103 H 26 H 111/63 97 06/27/16 10:00 06/27/16 10:00 06/27/16 10:00 06/27/16 10:00 06/27/16 11:44 Intake & Output 06/26/16 06/27/16 06/28/16 06:59 06:59 06:59 Intake Total 2469 2724 Output Total 1735 1255 175 Balance 734 1469 -175 Weight 68.3 kg 70 kg General appearance: PRESENT: no acute distress, disheveled, thin, well-developed Head exam: PRESENT: atraumatic, normocephalic Eye exam: PRESENT: conjunctiva pale Mouth exam: PRESENT: neck supple, other - Endotracheal tube in place Neck exam: ABSENT: carotid bruit, JVD, lymphadenopathy, thyromegaly Respiratory exam: PRESENT: decreased breath sounds, prolonged expiratory phas, rhonchi, symmetrical, unlabored, wheezes Cardiovascular exam: PRESENT: irregular rhythm Pulses: PRESENT: normal radial pulses GI/Abdominal exam: PRESENT: normal bowel sounds, soft. ABSENT: distended, guarding, mass, organolmegaly, rebound, tenderness Rectal exam: PRESENT: deferred Gentrourinary exam: PRESENT: indwelling catheter Musculoskeletal exam: PRESENT: normal inspection Skin exam: PRESENT: dry, warm Results Laboratory Results: 06/27/16 04:45 06/27/16 04:45 06/27/16 06/27/16 06/27/16 04:45 04:45 04:45 WBC 4.5 RBC 2.78 L Hgb 9.3 L Hct 27.1 L MCV 98 H MCH 33.7 H MCHC 34.5 RDW 13.4 Plt Count 152 Seg Neutrophils % 65.1 Lymphocytes % 17.9 Monocytes % 9.5 Eosinophils % 6.9 H Basophils % 0.6 Absolute Neutrophils 2.9 Absolute Lymphocytes 0.8 Absolute Monocytes 0.4 Absolute Eosinophils 0.3 Absolute Basophils 0.0 Carbonic Acid 1.03 L HCO3/H2CO3 Ratio 23:1 ABG pH 7.48 H ABG pCO2 34.3 L ABG pO2 84.6 ABG HCO3 24.7 ABG O2 Saturation 97.0 ABG Base Excess 1.6 FiO2 30% Sodium 134.6 L Potassium 3.9 Chloride 106 Carbon Dioxide 26 Anion Gap 3 L BUN 10 Creatinine 0.57 Est GFR ( Amer) > 60 Est GFR (Non-Af Amer) > 60 Glucose 144 H Calcium 7.9 L Phosphorus 4.1 Magnesium 1.6 Total Bilirubin 0.8 AST 31 ALT 29 Alkaline Phosphatase 79 Total Protein 4.5 L Albumin 2.1 L Triglycerides 158 H 06/24/16 06:45 Tracheal Aspirate Gram Stain - Final 06/21/16 06/21/16 06/21/16 15:09 15:09 21:15 Creatine Kinase 280 H 328 H CK-MB (CK-2) 4.06 Troponin I < 0.012 06/21/16 06/22/16 06/22/16 21:15 03:31 03:31 Creatine Kinase 435 H CK-MB (CK-2) 4.31 4.91 H Troponin I < 0.012 < 0.012 Impressions: KUB X-Ray 06/25/16 00:00 IMPRESSION: Nasogastric catheter is present with tip overlying the lower abdominal midline, probable antral region of the stomach. Chest X-Ray 06/27/16 06:00 IMPRESSION: Stable including a small right basilar effusion -opacity. Lines and tubes. Assessment & Plan - Diagnosis (1) Alcohol abuse Is this a current diagnosis for this admission?: Yes (2) COPD (chronic obstructive pulmonary disease) Is this a current diagnosis for this admission?: Yes (3) Status post total shoulder arthroplasty Qualifiers: Laterality: right Qualified Code(s): Z96.611 - Presence of right artificial shoulder joint Is this a current diagnosis for this admission?: Yes (4) Tobacco abuse Is this a current diagnosis for this admission?: Yes (5) Emphysema lung Is this a current diagnosis for this admission?: YesPlan: Minute volume and respiratory rate too high to consider extubation at this moment (6) Cirrhosis Qualifiers: Hepatic cirrhosis type: alcoholic cirrhosis Is this a current diagnosis for this admission?: Yes (7) Delirium tremens Is this a current diagnosis for this admission?: Yes (8) Hepatitis C Is this a current diagnosis for this admission?: Yes - Time Critical Time spent with patient: 35 or more minutes
[2016-06-27] MEDS: DULOXETINE HCL 30 MG CAPSULE.DR PO SCH (12:49)
[2016-06-27] MEDS: THIAMINE HCL 100 MG, FOLIC ACID 1 MG in NORMAL SALINE 50 ML IV SCH (13:45)
[2016-06-28] MEDS: CEFEPIME 1 GM/D5W RTU 1 GM/50 ML RTUPB IV SCH ×2 (02:15→15:33)
[2016-06-28] MEDS: IPRATROPIUM/ALBUTEROL 0.5-2.5 MG/3 ML AMPUL NEB SCH ×4 (02:24→20:10)
[2016-06-28] MEDS: PROPOFOL 100 ML IV PRN (03:34)
[2016-06-28 06:29] LABS: ARTERIAL BLOOD BASE EXCESS 2.3 mmol/L; ARTERIAL BLOOD O2 SATURATION 97.3 % (94-98)
[2016-06-28 06:31] LABS: ABSOLUTE EOSINOPHILS # (AUTO) 0.4 10^3/uL (0.0-0.6); ABSOLUTE LYMPHOCYTES (AUTO) 0.8 10^3/uL (0.5-4.7); ABSOLUTE MONOCYTES (AUTO) 0.5 10^3/uL (0.1-1.4); ABSOLUTE NEUT (AUTO) 2.7 10^3/uL (1.7-8.2); BASOPHILS % (AUTO) 0.6 % (0-2); EOSINOPHILS % (AUTO) 8.7 % (0-6); HEMATOCRIT 25.9 % (37.9-51.0); HEMOGLOBIN 8.7 g/dL (13.5-17.0); HGB HCT DIFFERENCE 0.2; LYMPHOCYTES % (AUTO) 18.8 % (13-45); MEAN CORPUSCULAR HEMOGLOBIN 33.5 pg (27.0-33.4); MEAN CORPUSCULAR HGB CONC 33.6 g/dL (32.0-36.0); MEAN CORPUSCULAR VOLUME 100 fl (80-97); MONOCYTES % (AUTO) 11.2 % (3-13); RED BLOOD COUNT 2.61 10^6/uL (4.35-5.55); RED CELL DISTRIBUTION WIDTH 13.5 % (11.5-14.0); SEGMENTED NEUTROPHILS % (AUTO) 60.7 % (42-78); WHITE BLOOD COUNT 4.5 10^3/uL (4.0-10.5)
[2016-06-28 06:44] LABS: ANION GAP 8 (5-19); BLOOD UREA NITROGEN 10 mg/dL (7-20); CARBON DIOXIDE 25 mmol/L (22-30); CHLORIDE 105 mmol/L (98-107); CREATININE RESULT 0.55 mg/dL (0.52-1.25); GLUCOSE 108 mg/dL (75-110); MAGNESIUM 1.6 mg/dL (1.6-2.3); POTASSIUM 3.8 mmol/L (3.6-5.0); SODIUM 138.1 mmol/L (137-145)
[2016-06-28] MEDS: DEXTROSE 5%-NORMAL SALINE 1,000 ML IV PRN ×2 (07:05→21:59)
[2016-06-28] MEDS: TOBRAMYCIN SULFATE NEB 40 MG/ML 30 ML NEB SCH (09:00)
[2016-06-28] MEDS: ASPIRIN 81 MG TABLET, CHEWABLE NG SCH (09:04)
[2016-06-28] MEDS: ATORVASTATIN CALCIUM 10 MG TABLET NG SCH (09:05)
[2016-06-28] MEDS: GABAPENTIN 300 MG CAPSULE NG SCH (09:05)
[2016-06-28] MEDS: MORPHINE SULFATE 10 MG/ML INJ IV SCH ×4 (09:05→22:33)
--- NOTE | 2016-06-28 09:17 | PDOC PROGRESS REPORT ---
Physical Exam Vital Signs: Temp Pulse Resp BP Pulse Ox 98.9 F 68 16 91/52 L 99 06/28/16 04:00 06/28/16 02:24 06/28/16 06:30 06/28/16 05:52 06/28/16 06:30 Intake & Output 06/27/16 06/28/16 06/29/16 06:59 06:59 06:59 Intake Total 2724 2611 Output Total 1255 1830 225 Balance 1469 781 -225 Weight 70 kg 70.7 kg PHYSICAL EXAM: LINES: Right femoral is in place and appears clean dry and intact Vent settings: Tidal volume 500. Rate 23. FiO2 30%. PEEP 6 Drips: Diprivan, Ativan GENERAL: This is a well-developed chronically ill appearing white male currently on the ventilator HEENT: Normocephalic atraumatic. Trachea is midline. Sclera anicteric HEART: Regular rate and rhythm. No murmurs rubs or gallops. LUNGS: Clear to auscultation bilaterally with equal rise and fall of the chest. He is currently intubated. ABDOMEN: Soft, nontender, nondistended with normoactive bowel sounds. Tube feeds Are going in at 0 mL per hour EXTREMITIES: No clubbing cyanosis or edema. 1+ peripheral pulses. Warm extremities. Right shoulder is appropriately bandaged. Roosevelt are intact. Bandages are clean dry and intact. NEURO: Patient is currently sedated. Full neurological assessment is not able to be obtained at this time. : Seo catheter is in place and draining dark kendrick urine. Results Laboratory Results: 06/28/16 06:00 06/28/16 06:00 06/28/16 06/28/16 06/28/16 06:00 06:00 06:00 WBC 4.5 RBC 2.61 L Hgb 8.7 L Hct 25.9 L MCV 100 H MCH 33.5 H MCHC 33.6 RDW 13.5 Plt Count 150 Seg Neutrophils % 60.7 Lymphocytes % 18.8 Monocytes % 11.2 Eosinophils % 8.7 H Basophils % 0.6 Absolute Neutrophils 2.7 Absolute Lymphocytes 0.8 Absolute Monocytes 0.5 Absolute Eosinophils 0.4 Absolute Basophils 0.0 Carbonic Acid 1.13 HCO3/H2CO3 Ratio 23:1 ABG pH 7.46 H ABG pCO2 37.6 ABG pO2 90.3 ABG HCO3 26.1 H ABG O2 Saturation 97.3 ABG Base Excess 2.3 FiO2 30% Sodium 138.1 Potassium 3.8 Chloride 105 Carbon Dioxide 25 Anion Gap 8 BUN 10 Creatinine 0.55 Est GFR ( Amer) > 60 Est GFR (Non-Af Amer) > 60 Glucose 108 Calcium 8.0 L Magnesium 1.6 06/21/16 06/21/16 06/21/16 15:09 15:09 21:15 Creatine Kinase 280 H 328 H CK-MB (CK-2) 4.06 Troponin I < 0.012 06/21/16 06/22/16 06/22/16 21:15 03:31 03:31 Creatine Kinase 435 H CK-MB (CK-2) 4.31 4.91 H Troponin I < 0.012 < 0.012 Impressions: KUB X-Ray 06/25/16 00:00 IMPRESSION: Nasogastric catheter is present with tip overlying the lower abdominal midline, probable antral region of the stomach. Chest X-Ray 06/27/16 06:00 IMPRESSION: Stable including a small right basilar effusion -opacity. Lines and tubes. Assessment & Plan - Diagnosis (1) Acute hypoxemic respiratory failure Plan: Patient is currently intubated and receiving a sedation vacations as per protocol. Dr. Ricardo has been consulted. We will continue weaning see if he can handle the protocol. Extubate if appropriate. Management per pulmonology. (2) Delirium tremens Is this a current diagnosis for this admission?: YesPlan: Ativan drip is currently off as part of the sedation vacation. We'll see how he responds once he is fully awake. He is currently in restraints. (3) Alcohol abuse Is this a current diagnosis for this admission?: YesPlan: Cessation is advised. Once we are able to get this patient over this particular antonino and then discuss with him his intentions going forward. Continue thiamine folate and multivitamin. (4) Status post total shoulder arthroplasty Qualifiers: Laterality: right Qualified Code(s): Z96.611 - Presence of right artificial shoulder joint Is this a current diagnosis for this admission?: YesPlan: Orthopedic surgery is following. (5) Pneumonia Qualifiers: Pneumonia type: due to other aerobic Gram-negative bacteria Is this a current diagnosis for this admission?: YesPlan: Patient is currently on cefepime. Discontinue tobramycin nebulizers. Serratia was found in patients trach aspirate. It is susceptible to both antibiotics. (6) COPD (chronic obstructive pulmonary disease) Is this a current diagnosis for this admission?: YesPlan: This is without acute exacerbation. He is currently receiving nebulizers as needed. (7) Cirrhosis Qualifiers: Hepatic cirrhosis type: alcoholic cirrhosis Is this a current diagnosis for this admission?: Yes (8) HTN (hypertension) Is this a current diagnosis for this admission?: YesPlan: Patient's blood pressure is currently stable in the low 100s. His outpatient antihypertensives are currently being held. He has when necessary medications available should his blood pressure become uncontrollable. However, patient has had episodes of hypotension during this admission so we should be careful when administering antihypertensives until it is necessary. (9) Hypomagnesemia Is this a current diagnosis for this admission?: YesPlan: Replace per protocol. (10) Hypotension Is this a current diagnosis for this admission?: YesPlan: Currently resolved. (11) Thrombocytopenia Is this a current diagnosis for this admission?: YesPlan: Secondary underlying alcoholism and cirrhosis. Resolved. (12) Tobacco abuse Is this a current diagnosis for this admission?: YesPlan: Cessation is advised. The patient has transdermal nicotine patch. - Time Critical Time spent with patient: 25-34 minutes - Inpatient Certification Medical Necessity: Need Close Monitoring Due to Risk of Patient Decompensation, Need For IV Fluids, Need for IV Antibiotics
--- NOTE | 2016-06-28 12:19 | PDOC PROGRESS REPORT ---
Subjective Progress Note for:: 06/28/16 Subjective:: intubated and sedated becomes tachypneic during sedation vacations Physical Exam Vital Signs: Temp Pulse Resp BP Pulse Ox 98.9 F 82 13 112/57 L 99 06/28/16 04:00 06/28/16 10:00 06/28/16 11:45 06/28/16 10:53 06/28/16 11:45 Intake & Output 06/27/16 06/28/16 06/29/16 06:59 06:59 06:59 Intake Total 2724 2611 Output Total 1255 1830 500 Balance 1469 781 -500 Weight 70 kg 70.7 kg General appearance: PRESENT: no acute distress, disheveled, thin, well-developed Head exam: PRESENT: atraumatic, normocephalic Eye exam: PRESENT: conjunctiva pale Mouth exam: PRESENT: dry mucosa, neck supple, other - Endotracheal tube in place Neck exam: ABSENT: carotid bruit, JVD, lymphadenopathy, thyromegaly Respiratory exam: PRESENT: decreased breath sounds, prolonged expiratory phas, rhonchi, symmetrical, unlabored Cardiovascular exam: PRESENT: RRR, +S1, +S2 Pulses: PRESENT: normal radial pulses GI/Abdominal exam: PRESENT: normal bowel sounds, soft. ABSENT: distended, guarding, mass, organolmegaly, rebound, tenderness Rectal exam: PRESENT: deferred Gentrourinary exam: PRESENT: indwelling catheter Musculoskeletal exam: PRESENT: normal inspection Results Laboratory Results: 06/28/16 06:00 06/28/16 06:00 06/28/16 06/28/16 06/28/16 06:00 06:00 06:00 WBC 4.5 RBC 2.61 L Hgb 8.7 L Hct 25.9 L MCV 100 H MCH 33.5 H MCHC 33.6 RDW 13.5 Plt Count 150 Seg Neutrophils % 60.7 Lymphocytes % 18.8 Monocytes % 11.2 Eosinophils % 8.7 H Basophils % 0.6 Absolute Neutrophils 2.7 Absolute Lymphocytes 0.8 Absolute Monocytes 0.5 Absolute Eosinophils 0.4 Absolute Basophils 0.0 Carbonic Acid 1.13 HCO3/H2CO3 Ratio 23:1 ABG pH 7.46 H ABG pCO2 37.6 ABG pO2 90.3 ABG HCO3 26.1 H ABG O2 Saturation 97.3 ABG Base Excess 2.3 FiO2 30% Sodium 138.1 Potassium 3.8 Chloride 105 Carbon Dioxide 25 Anion Gap 8 BUN 10 Creatinine 0.55 Est GFR ( Amer) > 60 Est GFR (Non-Af Amer) > 60 Glucose 108 Calcium 8.0 L Magnesium 1.6 06/24/16 06:45 Tracheal Aspirate Gram Stain - Final 06/24/16 06:45 Tracheal Aspirate Sputum Culture - Final Serratia Marcescens Pseudomonas Aeruginosa Yeast, Not Margo Albicans Greatly Reduced Normal Crystal 06/21/16 06/21/16 06/21/16 15:09 15:09 21:15 Creatine Kinase 280 H 328 H CK-MB (CK-2) 4.06 Troponin I < 0.012 06/21/16 06/22/16 06/22/16 21:15 03:31 03:31 Creatine Kinase 435 H CK-MB (CK-2) 4.31 4.91 H Troponin I < 0.012 < 0.012 Impressions: KUB X-Ray 06/25/16 00:00 IMPRESSION: Nasogastric catheter is present with tip overlying the lower abdominal midline, probable antral region of the stomach. Chest X-Ray 06/27/16 06:00 IMPRESSION: Stable including a small right basilar effusion -opacity. Lines and tubes. Assessment & Plan - Diagnosis (1) Alcohol abuse Is this a current diagnosis for this admission?: Yes (2) COPD (chronic obstructive pulmonary disease) Is this a current diagnosis for this admission?: Yes (3) Status post total shoulder arthroplasty Qualifiers: Laterality: right Qualified Code(s): Z96.611 - Presence of right artificial shoulder joint Is this a current diagnosis for this admission?: Yes (4) Tobacco abuse Is this a current diagnosis for this admission?: Yes (5) Emphysema lung Is this a current diagnosis for this admission?: Yes (6) Cirrhosis Qualifiers: Hepatic cirrhosis type: alcoholic cirrhosis Is this a current diagnosis for this admission?: Yes (7) Delirium tremens Is this a current diagnosis for this admission?: No (8) Hepatitis C Is this a current diagnosis for this admission?: Yes - Time Critical Time spent with patient: 35 or more minutes
[2016-06-28 14:30] LABS: ADD HIVPANEL? NO; HIV (1 AND 2) ANTIBODY NEGATIVE (NEGATIVE)
--- NOTE | 2016-06-28 17:02 | PDOC PROGRESS REPORT ---
Subjective Progress Note for:: 06/28/16 Subjective:: Patient is extubated but sedated heavily. Response to stimuli. NG tube was placed and a Seo is in place. Physical Exam Vital Signs: Temp Pulse Resp BP Pulse Ox 36.8 C 102 H 21 H 166/83 H 97 06/28/16 16:00 06/28/16 16:00 06/28/16 16:00 06/28/16 16:00 06/28/16 16:00 Intake & Output 06/27/16 06/28/16 06/29/16 06:59 06:59 06:59 Intake Total 2724 2611 Output Total 1255 1830 1640 Balance 1467 781 -1640 Weight 70 kg 70.7 kg Adult Front & Back Image: 1 - Swelling on the left upper extremity Shimon down to the hand. No ecchymosis or redness. Incision is dry clean and intact. Sling is in place. Good capillary refill. Results Laboratory Results: 06/28/16 06:00 06/28/16 06:00 06/28/16 06/28/16 06/28/16 06:00 06:00 06:00 WBC 4.5 RBC 2.61 L Hgb 8.7 L Hct 25.9 L MCV 100 H MCH 33.5 H MCHC 33.6 RDW 13.5 Plt Count 150 Seg Neutrophils % 60.7 Lymphocytes % 18.8 Monocytes % 11.2 Eosinophils % 8.7 H Basophils % 0.6 Absolute Neutrophils 2.7 Absolute Lymphocytes 0.8 Absolute Monocytes 0.5 Absolute Eosinophils 0.4 Absolute Basophils 0.0 Carbonic Acid 1.13 HCO3/H2CO3 Ratio 23:1 ABG pH 7.46 H ABG pCO2 37.6 ABG pO2 90.3 ABG HCO3 26.1 H ABG O2 Saturation 97.3 ABG Base Excess 2.3 FiO2 30% Sodium 138.1 Potassium 3.8 Chloride 105 Carbon Dioxide 25 Anion Gap 8 BUN 10 Creatinine 0.55 Est GFR ( Amer) > 60 Est GFR (Non-Af Amer) > 60 Glucose 108 Calcium 8.0 L Magnesium 1.6 06/24/16 06:45 Tracheal Aspirate Gram Stain - Final 06/24/16 06:45 Tracheal Aspirate Sputum Culture - Final Serratia Marcescens Pseudomonas Aeruginosa Yeast, Not Margo Albicans Greatly Reduced Normal Crystal 06/21/16 06/21/16 06/21/16 15:09 15:09 21:15 Creatine Kinase 280 H 328 H CK-MB (CK-2) 4.06 Troponin I < 0.012 06/21/16 06/22/16 06/22/16 21:15 03:31 03:31 Creatine Kinase 435 H CK-MB (CK-2) 4.31 4.91 H Troponin I < 0.012 < 0.012 Impressions: KUB X-Ray 06/25/16 00:00 IMPRESSION: Nasogastric catheter is present with tip overlying the lower abdominal midline, probable antral region of the stomach. Chest X-Ray 06/27/16 06:00 IMPRESSION: Stable including a small right basilar effusion -opacity. Lines and tubes. Assessment & Plan - Plan Summary Plan Summary: Patient is postop day 7 from right total shoulder arthroplasty. Patient is heavily sedated. Thankfully patient is extubated and breathing on his own. Likely to stay in the ICU for the next 24-48 hours before being transferred upstairs. Off all sleeping in bed. Therapy can work on passive range of motion of the elbow and to a certain extent his shoulder. Continue current care.
[2016-06-28] MEDS: THIAMINE HCL 100 MG, FOLIC ACID 1 MG in NORMAL SALINE 50 ML IV SCH (18:31)
[2016-06-28] MEDS: ACETAMINOPHEN SOLN 325 MG/10.15 ML UDCUP NG PRN (23:09)
[2016-06-29] MEDS ORDERED: DIAZEPAM INJ 10 MG/2 ML DISP.SYRIN ONE (01:25)
[2016-06-29] MEDS ORDERED: DIAZEPAM INJ 10 MG/2 ML DISP.SYRIN IV ONE (01:30)
[2016-06-29] MEDS: IPRATROPIUM/ALBUTEROL 0.5-2.5 MG/3 ML AMPUL NEB SCH ×4 (01:52→21:22)
[2016-06-29] MEDS: MORPHINE SULFATE 10 MG/ML INJ IV SCH ×6 (02:30→21:16)
[2016-06-29] MEDS: CEFEPIME 1 GM/D5W RTU 1 GM/50 ML RTUPB IV SCH ×2 (02:31→14:27)
[2016-06-29 05:40] LABS: ARTERIAL BLOOD BASE EXCESS 3.3 mmol/L; ARTERIAL BLOOD O2 SATURATION 96.1 % (94-98)
[2016-06-29 05:47] LABS: ABSOLUTE EOSINOPHILS # (AUTO) 0.4 10^3/uL (0.0-0.6); ABSOLUTE MONOCYTES (AUTO) 0.6 10^3/uL (0.1-1.4); ABSOLUTE NEUT (AUTO) 4.5 10^3/uL (1.7-8.2); BASOPHILS % (AUTO) 0.6 % (0-2); EOSINOPHILS % (AUTO) 6.1 % (0-6); HEMATOCRIT 29.5 % (37.9-51.0); HEMOGLOBIN 10.1 g/dL (13.5-17.0); HGB HCT DIFFERENCE 0.8; LYMPHOCYTES % (AUTO) 15.7 % (13-45); MEAN CORPUSCULAR HEMOGLOBIN 33.2 pg (27.0-33.4); MEAN CORPUSCULAR HGB CONC 34.2 g/dL (32.0-36.0); MEAN CORPUSCULAR VOLUME 97 fl (80-97); MONOCYTES % (AUTO) 9.1 % (3-13); RED BLOOD COUNT 3.04 10^6/uL (4.35-5.55); RED CELL DISTRIBUTION WIDTH 13.3 % (11.5-14.0); SEGMENTED NEUTROPHILS % (AUTO) 68.5 % (42-78); WHITE BLOOD COUNT 6.5 10^3/uL (4.0-10.5)
[2016-06-29 05:52] LABS: ANION GAP 7 (5-19); BLOOD UREA NITROGEN 8 mg/dL (7-20); CALCIUM 8.6 mg/dL (8.4-10.2); CARBON DIOXIDE 28 mmol/L (22-30); CHLORIDE 103 mmol/L (98-107); CREATININE RESULT 0.54 mg/dL (0.52-1.25); GLUCOSE 112 mg/dL (75-110); MAGNESIUM 1.4 mg/dL (1.6-2.3); POTASSIUM 3.3 mmol/L (3.6-5.0); SODIUM 138.4 mmol/L (137-145)
--- NOTE | 2016-06-29 09:19 | PDOC PROGRESS REPORT ---
Subjective Progress Note for:: 06/29/16 Subjective:: This is a follow-up visit for acute respiratory failure and DTs. The patient has been extubated. He is mumbling and does not speak clearly. He cannot participate in review of systems. Physical Exam Vital Signs: Temp Pulse Resp BP Pulse Ox 98.2 F 114 H 19 129/73 H 98 06/29/16 08:00 06/29/16 08:00 06/29/16 08:00 06/29/16 08:00 06/29/16 08:00 Intake & Output 06/28/16 06/29/16 06/30/16 06:59 06:59 06:59 Intake Total 2611 1861 Output Total 1830 4320 350 Balance 151 -6246 -350 Weight 70.7 kg 67.3 kg PHYSICAL EXAM: LINES: Right femoral is in place and appears clean dry and intact Vent settings: Extubated 1 day Drips: None at the moment GENERAL: This is a well-developed chronically ill appearing white male currently resting in bed in no acute distress HEENT: Normocephalic atraumatic. Trachea is midline. Sclera anicteric HEART: Tachycardic. No murmurs rubs or gallops. LUNGS: Clear to auscultation bilaterally with equal rise and fall of the chest. ABDOMEN: Soft, nontender, nondistended with normoactive bowel sounds. Tube feeds Are going in at 0 mL per hour EXTREMITIES: No clubbing cyanosis. Right upper extremity is swollen from the shoulder down to the hand. 1+ peripheral pulses. Warm extremities. Right shoulder is appropriately bandaged. Prashant are intact. Bandages are clean dry and intact. NEURO: Patient is currently off of sedation. He is not oriented. He tells me his name is Tank. He mumbles in response to my questions. Most of what he says is unintelligible. : Seo catheter is in place and draining dark kendrick urine. Results Laboratory Results: 06/29/16 05:00 06/29/16 05:00 06/29/16 06/29/16 06/29/16 05:00 05:00 05:00 WBC 6.5 RBC 3.04 L Hgb 10.1 L Hct 29.5 L MCV 97 MCH 33.2 MCHC 34.2 RDW 13.3 Plt Count 196 Seg Neutrophils % 68.5 Lymphocytes % 15.7 Monocytes % 9.1 Eosinophils % 6.1 H Basophils % 0.6 Absolute Neutrophils 4.5 Absolute Lymphocytes 1.0 Absolute Monocytes 0.6 Absolute Eosinophils 0.4 Absolute Basophils 0.0 Carbonic Acid 1.13 HCO3/H2CO3 Ratio 23:1 ABG pH 7.48 H ABG pCO2 37.5 ABG pO2 76.4 L ABG HCO3 27.0 H ABG O2 Saturation 96.1 ABG Base Excess 3.3 FiO2 3 L Sodium 138.4 Potassium 3.3 L Chloride 103 Carbon Dioxide 28 Anion Gap 7 BUN 8 Creatinine 0.54 Est GFR ( Amer) > 60 Est GFR (Non-Af Amer) > 60 Glucose 112 H Calcium 8.6 Magnesium 1.4 L 06/23/16 17:55 Blood Blood Culture - Final NO GROWTH IN 5 DAYS 06/23/16 17:45 Blood Blood Culture - Final NO GROWTH IN 5 DAYS 06/24/16 06:45 Tracheal Aspirate Gram Stain - Final 06/24/16 06:45 Tracheal Aspirate Sputum Culture - Final Serratia Marcescens Pseudomonas Aeruginosa Yeast, Not Margo Albicans Greatly Reduced Normal Crystal 06/21/16 06/21/16 06/21/16 15:09 15:09 21:15 Creatine Kinase 280 H 328 H CK-MB (CK-2) 4.06 Troponin I < 0.012 06/21/16 06/22/16 06/22/16 21:15 03:31 03:31 Creatine Kinase 435 H CK-MB (CK-2) 4.31 4.91 H Troponin I < 0.012 < 0.012 Impressions: KUB X-Ray 06/25/16 00:00 IMPRESSION: Nasogastric catheter is present with tip overlying the lower abdominal midline, probable antral region of the stomach. Chest X-Ray 06/29/16 06:00 IMPRESSION: IMPROVED AERATION IN THE RIGHT LUNG BASE. Assessment & Plan - Diagnosis (1) Acute hypoxemic respiratory failure Plan: Status post extubation. Satting quite well on nasal cannula. (2) Delirium tremens Is this a current diagnosis for this admission?: YesPlan: Ativan drip is currently off . He is slightly tachycardic. Think he is through vocal of his detox. (3) Alcohol abuse Is this a current diagnosis for this admission?: YesPlan: Cessation is advised. Once we are able to get this patient over this particular antonino and then discuss with him his intentions going forward. Continue thiamine folate and multivitamin. (4) Status post total shoulder arthroplasty Qualifiers: Laterality: right Qualified Code(s): Z96.611 - Presence of right artificial shoulder joint Is this a current diagnosis for this admission?: YesPlan: Orthopedic surgery is following. The arm is swollen from the shoulder down to the hands. I don't recall yesterday that there was swelling much beyond the shoulder. Daphne keep an eye on this this worsens we'll obtain a right upper extremity Doppler. (5) Pneumonia Qualifiers: Pneumonia type: due to other aerobic Gram-negative bacteria Is this a current diagnosis for this admission?: YesPlan: Patient is currently on cefepime. Discontinue tobramycin nebulizers. Serratia was found in patients trach aspirate. It is susceptible to both antibiotics. White blood cell count has normalized and there is better aeration of the right lower lobe today. (6) COPD (chronic obstructive pulmonary disease) Is this a current diagnosis for this admission?: YesPlan: This is without acute exacerbation. He is currently receiving nebulizers as needed. (7) Cirrhosis Qualifiers: Hepatic cirrhosis type: alcoholic cirrhosis Is this a current diagnosis for this admission?: Yes (8) HTN (hypertension) Is this a current diagnosis for this admission?: YesPlan: Patient's blood pressure is currently stable in the low 100s. His outpatient antihypertensives are currently being held. He has when necessary medications available should his blood pressure become uncontrollable. However, patient has had episodes of hypotension during this admission so we should be careful when administering antihypertensives until it is necessary. (9) Hypomagnesemia Is this a current diagnosis for this admission?: YesPlan: Replace per protocol. (10) Hypotension Is this a current diagnosis for this admission?: YesPlan: Currently resolved. (11) Thrombocytopenia Is this a current diagnosis for this admission?: YesPlan: Secondary underlying alcoholism and cirrhosis. Resolved. At this point I think we should start Lovenox. SCDs can be continued. (12) Tobacco abuse Is this a current diagnosis for this admission?: YesPlan: Cessation is advised. The patient has transdermal nicotine patch. - Time Time Spent with patient: 25-34 minutes Anticipated discharge: SNF - Inpatient Certification Medical Necessity: Need Close Monitoring Due to Risk of Patient Decompensation, Need for IV Antibiotics
[2016-06-29] MEDS: ATORVASTATIN CALCIUM 10 MG TABLET NG SCH (09:29)
[2016-06-29] MEDS: GABAPENTIN 300 MG CAPSULE NG SCH (09:30)
[2016-06-29] MEDS: ASPIRIN 81 MG TABLET, CHEWABLE NG SCH (09:30)
[2016-06-29] MEDS: MAGNESIUM SULFATE 1 GM/D5W 100 ML IV SCH ×2 (09:49→11:02)
[2016-06-29] MEDS: POTASSIUM CHLORIDE 20 MEQ/50 ML RTU IV SCH ×2 (09:50→11:42)
[2016-06-29] MEDS: DEXTROSE 5%-NORMAL SALINE 1,000 ML IV PRN ×2 (11:02→13:42)
[2016-06-29] MEDS: THIAMINE HCL 100 MG, FOLIC ACID 1 MG in NORMAL SALINE 50 ML IV SCH (15:08)
[2016-06-29 15:21] LABS: ANION GAP 5 (5-19); BLOOD UREA NITROGEN 10 mg/dL (7-20); CALCIUM 8.3 mg/dL (8.4-10.2); CARBON DIOXIDE 29 mmol/L (22-30); CHLORIDE 101 mmol/L (98-107); CREATININE RESULT 0.49 mg/dL (0.52-1.25); GLUCOSE 158 mg/dL (75-110); SODIUM 134.9 mmol/L (137-145)
[2016-06-29 15:33] LABS: POTASSIUM 4.3 mmol/L (3.6-5.0)
[2016-06-29] MEDS: METOPROLOL TARTRATE PF/INJ 5 MG/5 ML SDV IV PRN (16:16)
[2016-06-29] MEDS: ACETAMINOPHEN SOLN 325 MG/10.15 ML UDCUP NG PRN (16:16)
[2016-06-29] MEDS: HEPARIN SOD (PORCINE) 5,000 UNIT/ML 1 ML SYRINGE SUBCUT SCH (21:13)
[2016-06-29] MEDS: OXYCODONE-ACETAMINOPHEN 5-325 MG TABLET PO PRN (21:29)
[2016-06-30] MEDS: OXYCODONE-ACETAMINOPHEN 5-325 MG TABLET PO PRN ×4 (00:56→18:06)
[2016-06-30] MEDS: CEFEPIME 1 GM/D5W RTU 1 GM/50 ML RTUPB IV SCH ×2 (01:01→14:12)
[2016-06-30] MEDS: MORPHINE SULFATE 10 MG/ML INJ IV SCH ×6 (01:07→22:15)
[2016-06-30] MEDS: IPRATROPIUM/ALBUTEROL 0.5-2.5 MG/3 ML AMPUL NEB SCH ×4 (02:25→20:17)
[2016-06-30] MEDS: DEXTROSE 5%-NORMAL SALINE 1,000 ML IV PRN ×2 (04:29→14:13)
[2016-06-30] MEDS: HEPARIN SOD (PORCINE) 5,000 UNIT/ML 1 ML SYRINGE SUBCUT SCH ×3 (05:34→23:40)
[2016-06-30 06:19] LABS: ABSOLUTE BASOPHILS # (AUTO) 0.1 10^3/uL (0.0-0.2); ABSOLUTE EOSINOPHILS # (AUTO) 0.4 10^3/uL (0.0-0.6); ABSOLUTE LYMPHOCYTES (AUTO) 1.5 10^3/uL (0.5-4.7); ABSOLUTE MONOCYTES (AUTO) 0.7 10^3/uL (0.1-1.4); ABSOLUTE NEUT (AUTO) 3.6 10^3/uL (1.7-8.2); BASOPHILS % (AUTO) 1.4 % (0-2); HEMATOCRIT 29.6 % (37.9-51.0); HGB HCT DIFFERENCE 0.4; LYMPHOCYTES % (AUTO) 24.7 % (13-45); MEAN CORPUSCULAR HGB CONC 33.6 g/dL (32.0-36.0); MEAN CORPUSCULAR VOLUME 98 fl (80-97); MONOCYTES % (AUTO) 10.6 % (3-13); RED BLOOD COUNT 3.01 10^6/uL (4.35-5.55); RED CELL DISTRIBUTION WIDTH 13.4 % (11.5-14.0); SEGMENTED NEUTROPHILS % (AUTO) 57.3 % (42-78); WHITE BLOOD COUNT 6.3 10^3/uL (4.0-10.5)
[2016-06-30 06:30] LABS: ALANINE AMINOTRANSFERASE 37 U/L (21-72); ALBUMIN 2.4 g/dL (3.5-5.0); ALKALINE PHOSPHATASE 98 U/L (38-126); ANION GAP 5 (5-19); ASPARTATE AMINO TRANSFERASE 36 U/L (17-59); BILIRUBIN,DIRECT 0.3 mg/dL (0.0-0.4); BILIRUBIN,TOTAL 0.7 mg/dL (0.2-1.3); BLOOD UREA NITROGEN 12 mg/dL (7-20); CALCIUM 8.3 mg/dL (8.4-10.2); CARBON DIOXIDE 30 mmol/L (22-30); CHLORIDE 102 mmol/L (98-107); CREATININE RESULT 0.53 mg/dL (0.52-1.25); GLUCOSE 91 mg/dL (75-110); MAGNESIUM 1.6 mg/dL (1.6-2.3); POTASSIUM 3.9 mmol/L (3.6-5.0); SODIUM 136.8 mmol/L (137-145)
[2016-06-30 06:49] LABS: ARTERIAL BLOOD O2 SATURATION 95.4 % (94-98)
[2016-06-30] MEDS: ASPIRIN 81 MG TABLET, CHEWABLE NG SCH (09:00)
[2016-06-30] MEDS: GABAPENTIN 300 MG CAPSULE NG SCH (09:00)
[2016-06-30] MEDS: ATORVASTATIN CALCIUM 10 MG TABLET NG SCH (09:00)
[2016-06-30] MEDS: METOPROLOL TARTRATE 25 MG TABLET NG SCH (09:00)
--- NOTE | 2016-06-30 09:08 | PDOC PROGRESS REPORT ---
Subjective Progress Note for:: 06/30/16 Subjective:: This is a follow-up visit for acute respiratory failure and DTs. The patient has been extubated 06/28/2016. He asks me if the people in [place] have poisoned him. Physical Exam Vital Signs: Temp Pulse Resp BP Pulse Ox 98.4 F 95 13 108/60 96 06/30/16 07:52 06/30/16 07:52 06/30/16 08:00 06/30/16 07:54 06/30/16 08:00 Intake & Output 06/29/16 06/30/16 07/01/16 06:59 06:59 06:59 Intake Total 1861 3432 Output Total 4320 4045 40 Balance -2459 -613 -40 Weight 67.3 kg 67.1 kg PHYSICAL EXAM: LINES: Right femoral is in place and appears clean dry and intact Vent settings: Extubated 06/28/2016 Drips: None at the moment GENERAL: This is a well-developed chronically ill appearing white male currently resting in bed in no acute distress HEENT: Normocephalic atraumatic. Trachea is midline. Sclera anicteric HEART: Regular rate and rhythm. No murmurs rubs or gallops. LUNGS: Clear to auscultation bilaterally with equal rise and fall of the chest. ABDOMEN: Soft, nontender, nondistended with normoactive bowel sounds. Tube feeds Are going in at 50 mL per hour EXTREMITIES: No clubbing cyanosis. Right upper extremity is swollen from the shoulder down to the hand. 1+ peripheral pulses. Warm extremities. Right shoulder is appropriately bandaged. [place] are intact. Bandages are clean dry and intact. NEURO: Patient is currently off of sedation. He is not oriented. He tells me this 1987 and that Magan Olmstead is the president. : Seo catheter is in place and draining dark kendrick urine. Results Laboratory Results: 06/30/16 06:10 06/30/16 06:10 06/29/16 06/29/16 06/30/16 14:30 14:30 06:10 WBC 6.3 RBC 3.01 L Hgb 10.0 L Hct 29.6 L MCV 98 H MCH 33.0 MCHC 33.6 RDW 13.4 Plt Count 197 Seg Neutrophils % 57.3 Lymphocytes % 24.7 Monocytes % 10.6 Eosinophils % 6.0 Basophils % 1.4 Absolute Neutrophils 3.6 Absolute Lymphocytes 1.5 Absolute Monocytes 0.7 Absolute Eosinophils 0.4 Absolute Basophils 0.1 Carbonic Acid HCO3/H2CO3 Ratio ABG pH ABG pCO2 ABG pO2 ABG HCO3 ABG O2 Saturation ABG Base Excess FiO2 Sodium 134.9 L Potassium 4.3 D Chloride 101 Carbon Dioxide 29 Anion Gap 5 BUN 10 Creatinine 0.49 L Est GFR ( Amer) > 60 Est GFR (Non-Af Amer) > 60 Glucose 158 H Calcium 8.3 L Magnesium 1.7 Total Bilirubin AST ALT Alkaline Phosphatase Total Protein Albumin 06/30/16 06/30/16 06:10 06:25 WBC RBC Hgb Hct MCV MCH MCHC RDW Plt Count Seg Neutrophils % Lymphocytes % Monocytes % Eosinophils % Basophils % Absolute Neutrophils Absolute Lymphocytes Absolute Monocytes Absolute Eosinophils Absolute Basophils Carbonic Acid 1.15 HCO3/H2CO3 Ratio 23:1 ABG pH 7.47 H ABG pCO2 38.2 ABG pO2 72.6 L ABG HCO3 26.9 H ABG O2 Saturation 95.4 ABG Base Excess 3.0 FiO2 2 LITERS Sodium 136.8 L Potassium 3.9 Chloride 102 Carbon Dioxide 30 Anion Gap 5 BUN 12 Creatinine 0.53 Est GFR ( Amer) > 60 Est GFR (Non-Af Amer) > 60 Glucose 91 Calcium 8.3 L Magnesium 1.6 Total Bilirubin 0.7 AST 36 ALT 37 Alkaline Phosphatase 98 Total Protein 5.0 L Albumin 2.4 L 06/21/16 06/21/16 06/21/16 15:09 15:09 21:15 Creatine Kinase 280 H 328 H CK-MB (CK-2) 4.06 Troponin I < 0.012 06/21/16 06/22/16 06/22/16 21:15 03:31 03:31 Creatine Kinase 435 H CK-MB (CK-2) 4.31 4.91 H Troponin I < 0.012 < 0.012 Impressions: KUB X-Ray 06/25/16 00:00 IMPRESSION: Nasogastric catheter is present with tip overlying the lower abdominal midline, probable antral region of the stomach. Chest X-Ray 06/30/16 06:00 IMPRESSION: Interval worsening of small-moderate bibasilar opacity -effusion, right more than left. Lines and tubes. Assessment & Plan - Diagnosis (1) Acute hypoxemic respiratory failure Plan: Status post extubation. Satting quite well on nasal cannula. (2) Delirium tremens Is this a current diagnosis for this admission?: YesPlan: Ativan drip is currently off . Resolved. I believe the patient is left decreased mentation. (3) Alcohol abuse Is this a current diagnosis for this admission?: YesPlan: Cessation is advised. Once we are able to get this patient over this particular antonino and then discuss with him his intentions going forward. Continue thiamine folate and multivitamin. (4) Status post total shoulder arthroplasty Qualifiers: Laterality: right Qualified Code(s): Z96.611 - Presence of right artificial shoulder joint Is this a current diagnosis for this admission?: YesPlan: Orthopedic surgery is following. The arm is swollen from the shoulder down to the hands. Continue by mouth pain medication with IV for breakthrough. (5) Pneumonia Qualifiers: Pneumonia type: due to other aerobic Gram-negative bacteria Is this a current diagnosis for this admission?: YesPlan: Patient is currently on cefepime. Discontinue tobramycin nebulizers. Serratia was found in patients trach aspirate. It is susceptible to both antibiotics. White blood cell count has normalized and there is better aeration of the right lower lobe today. (6) COPD (chronic obstructive pulmonary disease) Is this a current diagnosis for this admission?: YesPlan: This is without acute exacerbation. He is currently receiving nebulizers as needed. (7) Cirrhosis Qualifiers: Hepatic cirrhosis type: alcoholic cirrhosis Is this a current diagnosis for this admission?: Yes (8) HTN (hypertension) Is this a current diagnosis for this admission?: YesPlan: Patient's blood pressure is currently stable in the low 100s. His outpatient antihypertensives are currently being held. He has when necessary medications available should his blood pressure become uncontrollable. However, patient has had episodes of hypotension during this admission so we should be careful when administering antihypertensives until it is necessary. (9) Hypomagnesemia Is this a current diagnosis for this admission?: YesPlan: Replace per protocol. (10) Hypotension Is this a current diagnosis for this admission?: YesPlan: Currently resolved. (11) Thrombocytopenia Is this a current diagnosis for this admission?: YesPlan: Secondary underlying alcoholism and cirrhosis. Resolved. Continue heparin every 8. (12) Tobacco abuse Is this a current diagnosis for this admission?: YesPlan: Cessation is advised. The patient has transdermal nicotine patch. - Time Time Spent with patient: 25-34 minutes - Inpatient Certification Medical Necessity: Need Close Monitoring Due to Risk of Patient Decompensation
[2016-06-30] MEDS: LISINOPRIL 10 MG TABLET NG SCH (09:16)
[2016-06-30] MEDS: DULOXETINE HCL 30 MG CAPSULE.DR PO SCH (09:17)
--- NOTE | 2016-06-30 09:29 | PDOC PROGRESS REPORT ---
Subjective Progress Note for:: 06/29/16 Subjective:: intubated and sedated becomes tachypneic during sedation vacations Physical Exam Vital Signs: Temp Pulse Resp BP Pulse Ox 99.8 F 92 15 115/59 L 92 06/29/16 08:00 06/29/16 08:00 06/29/16 06:30 06/29/16 05:53 06/29/16 06:30 Intake & Output 06/28/16 06/29/16 06/30/16 06:59 06:59 06:59 Intake Total 2611 1861 Output Total 1830 4320 175 Balance 781 -2459 -175 Weight 70.7 kg 67.3 kg General appearance: PRESENT: no acute distress, disheveled, thin, well-developed Head exam: PRESENT: atraumatic, normocephalic Eye exam: PRESENT: conjunctiva pale Mouth exam: PRESENT: dry mucosa, neck supple, other - ET tube Teeth exam: PRESENT: poor dentation Respiratory exam: PRESENT: decreased breath sounds, prolonged expiratory phas, rales, rhonchi, unlabored Cardiovascular exam: PRESENT: RRR, +S1, +S2 Pulses: PRESENT: normal radial pulses GI/Abdominal exam: PRESENT: normal bowel sounds, soft. ABSENT: distended, guarding, mass, organolmegaly, rebound, tenderness Rectal exam: PRESENT: deferred Gentrourinary exam: PRESENT: indwelling catheter Musculoskeletal exam: PRESENT: other - r shoulder surgery Neurological exam: PRESENT: awake Skin exam: PRESENT: dry, warm Results Laboratory Results: 06/29/16 05:00 06/29/16 05:00 06/29/16 06/29/16 06/29/16 05:00 05:00 05:00 WBC 6.5 RBC 3.04 L Hgb 10.1 L Hct 29.5 L MCV 97 MCH 33.2 MCHC 34.2 RDW 13.3 Plt Count 196 Seg Neutrophils % 68.5 Lymphocytes % 15.7 Monocytes % 9.1 Eosinophils % 6.1 H Basophils % 0.6 Absolute Neutrophils 4.5 Absolute Lymphocytes 1.0 Absolute Monocytes 0.6 Absolute Eosinophils 0.4 Absolute Basophils 0.0 Carbonic Acid 1.13 HCO3/H2CO3 Ratio 23:1 ABG pH 7.48 H ABG pCO2 37.5 ABG pO2 76.4 L ABG HCO3 27.0 H ABG O2 Saturation 96.1 ABG Base Excess 3.3 FiO2 3 L Sodium 138.4 Potassium 3.3 L Chloride 103 Carbon Dioxide 28 Anion Gap 7 BUN 8 Creatinine 0.54 Est GFR ( Amer) > 60 Est GFR (Non-Af Amer) > 60 Glucose 112 H Calcium 8.6 Magnesium 1.4 L 06/23/16 17:55 Blood Blood Culture - Final NO GROWTH IN 5 DAYS 06/23/16 17:45 Blood Blood Culture - Final NO GROWTH IN 5 DAYS 06/24/16 06:45 Tracheal Aspirate Gram Stain - Final 06/24/16 06:45 Tracheal Aspirate Sputum Culture - Final Serratia Marcescens Pseudomonas Aeruginosa Yeast, Not Margo Albicans Greatly Reduced Normal Crystal 06/21/16 06/21/16 06/21/16 15:09 15:09 21:15 Creatine Kinase 280 H 328 H CK-MB (CK-2) 4.06 Troponin I < 0.012 06/21/16 06/22/16 06/22/16 21:15 03:31 03:31 Creatine Kinase 435 H CK-MB (CK-2) 4.31 4.91 H Troponin I < 0.012 < 0.012 Impressions: KUB X-Ray 06/25/16 00:00 IMPRESSION: Nasogastric catheter is present with tip overlying the lower abdominal midline, probable antral region of the stomach. Chest X-Ray 06/29/16 06:00 IMPRESSION: IMPROVED AERATION IN THE RIGHT LUNG BASE. Assessment & Plan - Diagnosis (1) Alcohol abuse Is this a current diagnosis for this admission?: Yes (2) COPD (chronic obstructive pulmonary disease) Is this a current diagnosis for this admission?: Yes (3) Status post total shoulder arthroplasty Qualifiers: Laterality: right Qualified Code(s): Z96.611 - Presence of right artificial shoulder joint Is this a current diagnosis for this admission?: Yes (4) Tobacco abuse Is this a current diagnosis for this admission?: Yes (5) Emphysema lung Is this a current diagnosis for this admission?: Yes (6) Cirrhosis Qualifiers: Hepatic cirrhosis type: alcoholic cirrhosis Is this a current diagnosis for this admission?: Yes (7) Delirium tremens Is this a current diagnosis for this admission?: No (8) Hepatitis C Is this a current diagnosis for this admission?: Yes - Time Critical Time spent with patient: 25-34 minutes
--- NOTE | 2016-06-30 09:32 | PDOC PROGRESS REPORT ---
Subjective Progress Note for:: 06/30/16 Subjective:: intubated and sedated becomes tachypneic during sedation vacations Physical Exam Vital Signs: Temp Pulse Resp BP Pulse Ox 98.4 F 95 13 108/60 96 06/30/16 07:52 06/30/16 07:52 06/30/16 08:00 06/30/16 07:54 06/30/16 08:00 Intake & Output 06/29/16 06/30/16 07/01/16 06:59 06:59 06:59 Intake Total 1861 3432 Output Total 4320 4045 40 Balance -2459 -613 -40 Weight 67.3 kg 67.1 kg General appearance: PRESENT: no acute distress, disheveled, thin, well-developed Head exam: PRESENT: atraumatic, normocephalic Eye exam: PRESENT: conjunctiva pale, EOMI Mouth exam: PRESENT: dry mucosa, neck supple Teeth exam: PRESENT: poor dentation Neck exam: ABSENT: carotid bruit, JVD, lymphadenopathy, thyromegaly Respiratory exam: PRESENT: decreased breath sounds, prolonged expiratory phas, rales, rhonchi, symmetrical, unlabored Cardiovascular exam: PRESENT: RRR, +S1, +S2 Pulses: PRESENT: normal radial pulses GI/Abdominal exam: PRESENT: normal bowel sounds, soft. ABSENT: distended, guarding, mass, organolmegaly, rebound, tenderness Rectal exam: PRESENT: deferred Gentrourinary exam: PRESENT: indwelling catheter Musculoskeletal exam: PRESENT: other - r shoulder surgery Neurological exam: PRESENT: awake Skin exam: PRESENT: dry, warm Results Laboratory Results: 06/30/16 06:10 06/30/16 06:10 06/29/16 06/29/16 06/30/16 14:30 14:30 06:10 WBC 6.3 RBC 3.01 L Hgb 10.0 L Hct 29.6 L MCV 98 H MCH 33.0 MCHC 33.6 RDW 13.4 Plt Count 197 Seg Neutrophils % 57.3 Lymphocytes % 24.7 Monocytes % 10.6 Eosinophils % 6.0 Basophils % 1.4 Absolute Neutrophils 3.6 Absolute Lymphocytes 1.5 Absolute Monocytes 0.7 Absolute Eosinophils 0.4 Absolute Basophils 0.1 Carbonic Acid HCO3/H2CO3 Ratio ABG pH ABG pCO2 ABG pO2 ABG HCO3 ABG O2 Saturation ABG Base Excess FiO2 Sodium 134.9 L Potassium 4.3 D Chloride 101 Carbon Dioxide 29 Anion Gap 5 BUN 10 Creatinine 0.49 L Est GFR ( Amer) > 60 Est GFR (Non-Af Amer) > 60 Glucose 158 H Calcium 8.3 L Magnesium 1.7 Total Bilirubin AST ALT Alkaline Phosphatase Total Protein Albumin 06/30/16 06/30/16 06:10 06:25 WBC RBC Hgb Hct MCV MCH MCHC RDW Plt Count Seg Neutrophils % Lymphocytes % Monocytes % Eosinophils % Basophils % Absolute Neutrophils Absolute Lymphocytes Absolute Monocytes Absolute Eosinophils Absolute Basophils Carbonic Acid 1.15 HCO3/H2CO3 Ratio 23:1 ABG pH 7.47 H ABG pCO2 38.2 ABG pO2 72.6 L ABG HCO3 26.9 H ABG O2 Saturation 95.4 ABG Base Excess 3.0 FiO2 2 LITERS Sodium 136.8 L Potassium 3.9 Chloride 102 Carbon Dioxide 30 Anion Gap 5 BUN 12 Creatinine 0.53 Est GFR ( Amer) > 60 Est GFR (Non-Af Amer) > 60 Glucose 91 Calcium 8.3 L Magnesium 1.6 Total Bilirubin 0.7 AST 36 ALT 37 Alkaline Phosphatase 98 Total Protein 5.0 L Albumin 2.4 L 06/21/16 06/21/16 06/21/16 15:09 15:09 21:15 Creatine Kinase 280 H 328 H CK-MB (CK-2) 4.06 Troponin I < 0.012 06/21/16 06/22/16 06/22/16 21:15 03:31 03:31 Creatine Kinase 435 H CK-MB (CK-2) 4.31 4.91 H Troponin I < 0.012 < 0.012 Impressions: KUB X-Ray 06/25/16 00:00 IMPRESSION: Nasogastric catheter is present with tip overlying the lower abdominal midline, probable antral region of the stomach. Chest X-Ray 06/30/16 06:00 IMPRESSION: Interval worsening of small-moderate bibasilar opacity -effusion, right more than left. Lines and tubes. Assessment & Plan - Diagnosis (1) Alcohol abuse Is this a current diagnosis for this admission?: Yes (2) COPD (chronic obstructive pulmonary disease) Is this a current diagnosis for this admission?: Yes (3) Status post total shoulder arthroplasty Qualifiers: Laterality: right Qualified Code(s): Z96.611 - Presence of right artificial shoulder joint Is this a current diagnosis for this admission?: Yes (4) Tobacco abuse Is this a current diagnosis for this admission?: Yes (5) Emphysema lung Is this a current diagnosis for this admission?: Yes (6) Cirrhosis Qualifiers: Hepatic cirrhosis type: alcoholic cirrhosis Is this a current diagnosis for this admission?: Yes (7) Delirium tremens Is this a current diagnosis for this admission?: No (8) Hepatitis C Is this a current diagnosis for this admission?: Yes - Time Critical Time spent with patient: 25-34 minutes
[2016-07-01] MEDS: IPRATROPIUM/ALBUTEROL 0.5-2.5 MG/3 ML AMPUL NEB SCH ×4 (01:36→20:07)
[2016-07-01] MEDS: MORPHINE SULFATE 10 MG/ML INJ IV SCH ×6 (01:52→22:15)
[2016-07-01] MEDS: CEFEPIME 1 GM/D5W RTU 1 GM/50 ML RTUPB IV SCH ×2 (01:52→13:59)
[2016-07-01] MEDS: DEXTROSE 5%-NORMAL SALINE 1,000 ML IV PRN ×2 (04:49→19:09)
[2016-07-01] MEDS: HEPARIN SOD (PORCINE) 5,000 UNIT/ML 1 ML SYRINGE SUBCUT SCH ×3 (05:59→22:11)
[2016-07-01 06:54] LABS: ABSOLUTE BASOPHILS # (AUTO) 0.1 10^3/uL (0.0-0.2); ABSOLUTE EOSINOPHILS # (AUTO) 0.3 10^3/uL (0.0-0.6); ABSOLUTE LYMPHOCYTES (AUTO) 1.7 10^3/uL (0.5-4.7); ABSOLUTE NEUT (AUTO) 6.3 10^3/uL (1.7-8.2); BASOPHILS % (AUTO) 1.2 % (0-2); EOSINOPHILS % (AUTO) 3.5 % (0-6); HEMOGLOBIN 10.3 g/dL (13.5-17.0); HGB HCT DIFFERENCE 0.9; MEAN CORPUSCULAR HEMOGLOBIN 33.9 pg (27.0-33.4); MEAN CORPUSCULAR HGB CONC 34.3 g/dL (32.0-36.0); MEAN CORPUSCULAR VOLUME 99 fl (80-97); MONOCYTES % (AUTO) 11.1 % (3-13); RED BLOOD COUNT 3.04 10^6/uL (4.35-5.55); RED CELL DISTRIBUTION WIDTH 13.2 % (11.5-14.0); SEGMENTED NEUTROPHILS % (AUTO) 66.2 % (42-78); WHITE BLOOD COUNT 9.5 10^3/uL (4.0-10.5)
[2016-07-01 07:13] LABS: ANION GAP 9 (5-19); BLOOD UREA NITROGEN 14 mg/dL (7-20); CALCIUM 8.8 mg/dL (8.4-10.2); CARBON DIOXIDE 28 mmol/L (22-30); CHLORIDE 100 mmol/L (98-107); CREATININE RESULT 0.59 mg/dL (0.52-1.25); GLUCOSE 121 mg/dL (75-110); SODIUM 137.3 mmol/L (137-145)
[2016-07-01] MEDS ORDERED: PROCHLORPERAZINE EDISYLATE INJ 10 MG/2 ML VIAL IM PRN (07:35)
[2016-07-01 07:48] LABS: POTASSIUM 4.9 mmol/L (3.6-5.0)
[2016-07-01] MEDS: ATORVASTATIN CALCIUM 10 MG TABLET NG SCH (08:57)
[2016-07-01] MEDS: GABAPENTIN 300 MG CAPSULE NG SCH (08:57)
[2016-07-01] MEDS: METOPROLOL TARTRATE 25 MG TABLET NG SCH (08:57)
[2016-07-01] MEDS: DULOXETINE HCL 30 MG CAPSULE.DR PO SCH (10:27)
[2016-07-01] MEDS: FLUCONAZOLE 100 MG TABLET PO SCH (10:28)
[2016-07-01] MEDS: LISINOPRIL 10 MG TABLET NG SCH (10:28)
[2016-07-01] MEDS: ASPIRIN 81 MG TABLET, CHEWABLE NG SCH (10:28)
[2016-07-01] MEDS: OXYCODONE-ACETAMINOPHEN 5-325 MG TABLET PO PRN ×3 (11:00→20:54)
--- NOTE | 2016-07-01 12:34 | PDOC PROGRESS REPORT ---
Subjective Progress Note for:: 07/01/16 Subjective:: This is a follow-up visit for acute respiratory failure and DTs. The patient was extubated 06/28/2016. At the bedside he is quite agitated and angry. He is initially calm and agitated and then suddenly he also very loudly that he is mad. He cannot tell me why he is angry. I did observe a bedside swallow screen and the patient was able to consume half a cup of water without choking. Physical Exam Vital Signs: Temp Pulse Resp BP Pulse Ox 99.2 F 97 20 138/66 H 97 07/01/16 10:56 07/01/16 10:56 07/01/16 10:56 07/01/16 10:56 07/01/16 10:56 Intake & Output 06/30/16 07/01/16 07/02/16 06:59 06:59 06:59 Intake Total 3432 3121 Output Total 4045 2505 Balance -613 616 Weight 67.1 kg 72.1 kg PHYSICAL EXAM: LINES: Right femoral is in place and appears clean dry and intact Vent settings: Extubated 06/28/2016 Drips: None at the moment GENERAL: This is a well-developed chronically ill appearing white male currently resting in bed appearing agitated. HEENT: Normocephalic atraumatic. Trachea is midline. Sclera anicteric HEART: Regular rate and rhythm. No murmurs rubs or gallops. LUNGS: Clear to auscultation anteriorly bilaterally with equal rise and fall of the chest. ABDOMEN: Soft, nontender, nondistended with normoactive bowel sounds. Tube feeds Are going in at 50 mL per hour EXTREMITIES: No clubbing cyanosis. Right upper extremity is swollen from the shoulder down to the hand. Overall it is less swollen today. 1+ peripheral pulses. Warm extremities. Right shoulder is appropriately bandaged. [place] are intact. Bandages are clean dry and intact. NEURO: Awake and alert. He is not oriented. : Seo catheter is in place and draining dark kendrick urine. Results Laboratory Results: 07/01/16 06:05 07/01/16 06:05 07/01/16 07/01/16 06:05 06:05 WBC 9.5 RBC 3.04 L Hgb 10.3 L Hct 30.0 L MCV 99 H MCH 33.9 H MCHC 34.3 RDW 13.2 Plt Count 213 Seg Neutrophils % 66.2 Lymphocytes % 18.0 Monocytes % 11.1 Eosinophils % 3.5 Basophils % 1.2 Absolute Neutrophils 6.3 Absolute Lymphocytes 1.7 Absolute Monocytes 1.0 Absolute Eosinophils 0.3 Absolute Basophils 0.1 Sodium 137.3 Potassium 4.9 D Chloride 100 Carbon Dioxide 28 Anion Gap 9 BUN 14 Creatinine 0.59 Est GFR ( Amer) > 60 Est GFR (Non-Af Amer) > 60 Glucose 121 H Calcium 8.8 06/21/16 06/21/16 06/21/16 15:09 15:09 21:15 Creatine Kinase 280 H 328 H CK-MB (CK-2) 4.06 Troponin I < 0.012 06/21/16 06/22/16 06/22/16 21:15 03:31 03:31 Creatine Kinase 435 H CK-MB (CK-2) 4.31 4.91 H Troponin I < 0.012 < 0.012 Impressions: KUB X-Ray 06/25/16 00:00 IMPRESSION: Nasogastric catheter is present with tip overlying the lower abdominal midline, probable antral region of the stomach. Chest X-Ray 06/30/16 06:00 IMPRESSION: Interval worsening of small-moderate bibasilar opacity -effusion, right more than left. Lines and tubes. Assessment & Plan - Diagnosis (1) Acute hypoxemic respiratory failure Plan: Status post extubation. Satting quite well on nasal cannula. (2) Delirium tremens Is this a current diagnosis for this admission?: YesPlan: I believe the patient has past the period of time where his DTs would be of great harm. Unfortunately, I think he is left with a lowered baseline mentation. (3) Alcohol abuse Is this a current diagnosis for this admission?: YesPlan: Cessation is advised. Patient is not able to area on a conversation about alcohol cessation today. (4) Status post total shoulder arthroplasty Qualifiers: Laterality: right Qualified Code(s): Z96.611 - Presence of right artificial shoulder joint Is this a current diagnosis for this admission?: YesPlan: Orthopedic surgery is following. The arm is swollen from the shoulder down to the hands. Continue by mouth pain medication with IV for breakthrough. (5) Pneumonia Qualifiers: Pneumonia type: due to other aerobic Gram-negative bacteria Is this a current diagnosis for this admission?: YesPlan: Patient is currently on cefepime. Serratia was found in patients trach aspirate. (6) COPD (chronic obstructive pulmonary disease) Is this a current diagnosis for this admission?: YesPlan: This is without acute exacerbation. He is currently receiving nebulizers as needed. (7) Cirrhosis Qualifiers: Hepatic cirrhosis type: alcoholic cirrhosis Is this a current diagnosis for this admission?: Yes (8) HTN (hypertension) Is this a current diagnosis for this admission?: YesPlan: Patient's blood pressure is currently stable in the low 100s. His outpatient antihypertensives are currently being held. He has when necessary medications available should his blood pressure become uncontrollable. However, patient has had episodes of hypotension during this admission so we should be careful when administering antihypertensives until it is necessary. (9) Hypomagnesemia Is this a current diagnosis for this admission?: YesPlan: Currently resolved. (10) Hypotension Is this a current diagnosis for this admission?: YesPlan: Currently resolved. (11) Thrombocytopenia Is this a current diagnosis for this admission?: YesPlan: Secondary underlying alcoholism and cirrhosis. Resolved. Continue heparin every 8. (12) Tobacco abuse Is this a current diagnosis for this admission?: YesPlan: Cessation is advised. The patient has transdermal nicotine patch. (13) Generalized weakness Plan: Patient has generalized weakness after prolonged hospital stay on the ventilator. Will consult PT to begin working with him. Thus far he seems strong enough to swallow water. Will change his medications to by mouth some crushed in either applesauce or pudding. If he is able to handle solids during the swallowing screen we could consider beginning soft diet. - Time Critical Time spent with patient: 15-24 minutes - Inpatient Certification Medical Necessity: Significant Comorbidiites Make Outpatient Treatment Too Risky , Need Close Monitoring Due to Risk of Patient Decompensation
[2016-07-02] MEDS: LORAZEPAM INJ 2 MG/1 ML VIAL IV PRN ×2 (00:14→14:17)
[2016-07-02] MEDS: IPRATROPIUM/ALBUTEROL 0.5-2.5 MG/3 ML AMPUL NEB SCH ×4 (02:23→19:21)
[2016-07-02] MEDS: CEFEPIME 1 GM/D5W RTU 1 GM/50 ML RTUPB IV SCH (02:45)
[2016-07-02] MEDS: MORPHINE SULFATE 10 MG/ML INJ IV SCH ×6 (02:45→21:54)
[2016-07-02] MEDS: HEPARIN SOD (PORCINE) 5,000 UNIT/ML 1 ML SYRINGE SUBCUT SCH ×3 (05:56→21:55)
[2016-07-02 06:38] LABS: ABSOLUTE BASOPHILS # (AUTO) 0.1 10^3/uL (0.0-0.2); ABSOLUTE EOSINOPHILS # (AUTO) 0.3 10^3/uL (0.0-0.6); ABSOLUTE LYMPHOCYTES (AUTO) 1.9 10^3/uL (0.5-4.7); ABSOLUTE MONOCYTES (AUTO) 0.8 10^3/uL (0.1-1.4); ABSOLUTE NEUT (AUTO) 4.9 10^3/uL (1.7-8.2); BASOPHILS % (AUTO) 0.9 % (0-2); EOSINOPHILS % (AUTO) 3.8 % (0-6); HEMATOCRIT 27.7 % (37.9-51.0); HEMOGLOBIN 9.4 g/dL (13.5-17.0); HGB HCT DIFFERENCE 0.5; MEAN CORPUSCULAR HEMOGLOBIN 33.5 pg (27.0-33.4); MEAN CORPUSCULAR HGB CONC 34.1 g/dL (32.0-36.0); MEAN CORPUSCULAR VOLUME 98 fl (80-97); MONOCYTES % (AUTO) 9.7 % (3-13); RED BLOOD COUNT 2.81 10^6/uL (4.35-5.55); SEGMENTED NEUTROPHILS % (AUTO) 61.6 % (42-78); WHITE BLOOD COUNT 7.9 10^3/uL (4.0-10.5)
[2016-07-02 06:51] LABS: ANION GAP 8 (5-19); BLOOD UREA NITROGEN 10 mg/dL (7-20); CALCIUM 8.6 mg/dL (8.4-10.2); CARBON DIOXIDE 26 mmol/L (22-30); CHLORIDE 104 mmol/L (98-107); CREATININE RESULT 0.53 mg/dL (0.52-1.25); GLUCOSE 115 mg/dL (75-110); MAGNESIUM 1.6 mg/dL (1.6-2.3); SODIUM 137.7 mmol/L (137-145)
[2016-07-02 07:03] LABS: POTASSIUM 3.8 mmol/L (3.6-5.0)
[2016-07-02] MEDS: DULOXETINE HCL 30 MG CAPSULE.DR PO SCH (11:41)
[2016-07-02] MEDS: FLUCONAZOLE 100 MG TABLET PO SCH (11:41)
[2016-07-02] MEDS: LISINOPRIL 10 MG TABLET PO SCH (11:41)
[2016-07-02] MEDS: THIAMINE HCL 100 MG TABLET PO SCH (11:41)
[2016-07-02] MEDS: ASPIRIN 81 MG TABLET, CHEWABLE PO SCH (11:42)
[2016-07-02] MEDS: LEVOFLOXACIN 750 MG TABLET PO SCH (11:44)
[2016-07-02] MEDS: ATORVASTATIN CALCIUM 10 MG TABLET NG SCH (11:45)
[2016-07-02] MEDS: GABAPENTIN 300 MG CAPSULE PO SCH (11:45)
[2016-07-02] MEDS: METOPROLOL TARTRATE 25 MG TABLET PO SCH (11:46)
--- NOTE | 2016-07-02 13:32 | PDOC PROGRESS REPORT ---
Subjective Progress Note for:: 07/02/16 Subjective:: This is a follow-up visit for acute respiratory failure and DTs. The patient was admitted for right shoulder arthroplasty. While he was here he developed DVTs and acute respiratory failure. Was managed in the ICU on the ventilator not only for this but also for sepsis. The patient was extubated 06/28/2016 And transitioned out to the floor 2 days ago. At the bedside the patient is quite sleepy today. He received pain medication and Ativan. In general he can be verbally combative and at times agitated enough to require not only restraints but mittens. At this point he is quite stable and is awaiting SNF placement. Overnight he pulled out his NG tube. Physical Exam Vital Signs: Temp Pulse Resp BP Pulse Ox 99.0 F 87 18 127/67 H 94 07/02/16 07:31 07/02/16 07:49 07/02/16 07:49 07/02/16 07:31 07/02/16 07:49 Intake & Output 07/01/16 07/02/16 07/03/16 06:59 06:59 06:59 Intake Total 3121 2355 Output Total 2505 3600 Balance 616 -1245 Weight 72.1 kg 69.4 kg PHYSICAL EXAM: LINES: Right femoral is in place and appears clean dry and intact Vent settings: Extubated 06/28/2016 Drips: None at the moment GENERAL: This is a well-developed chronically ill appearing white male currently resting in bed appearing agitated. HEENT: Normocephalic atraumatic. Trachea is midline. Sclera anicteric HEART: Regular rate and rhythm. No murmurs rubs or gallops. LUNGS: Clear to auscultation anteriorly bilaterally with equal rise and fall of the chest. ABDOMEN: Soft, nontender, nondistended with normoactive bowel sounds. Patient pulled out NG tube 07/01/2016. EXTREMITIES: No clubbing cyanosis. Right upper extremity is swollen from the shoulder down to the hand. Overall it is less swollen today. 1+ peripheral pulses. Warm extremities. Right shoulder is appropriately bandaged. [place] are intact. Bandages are clean dry and intact. NEURO: Awake and alert. He is not oriented. : Seo catheter is in place and draining dark kendrick urine. Results Laboratory Results: 07/02/16 05:55 07/02/16 05:55 07/02/16 07/02/16 05:55 05:55 WBC 7.9 RBC 2.81 L Hgb 9.4 L Hct 27.7 L MCV 98 H MCH 33.5 H MCHC 34.1 RDW 14.0 Plt Count 214 Seg Neutrophils % 61.6 Lymphocytes % 24.0 Monocytes % 9.7 Eosinophils % 3.8 Basophils % 0.9 Absolute Neutrophils 4.9 Absolute Lymphocytes 1.9 Absolute Monocytes 0.8 Absolute Eosinophils 0.3 Absolute Basophils 0.1 Sodium 137.7 Potassium 3.8 D Chloride 104 Carbon Dioxide 26 Anion Gap 8 BUN 10 Creatinine 0.53 Est GFR ( Amer) > 60 Est GFR (Non-Af Amer) > 60 Glucose 115 H Calcium 8.6 Magnesium 1.6 06/21/16 06/21/16 06/21/16 15:09 15:09 21:15 Creatine Kinase 280 H 328 H CK-MB (CK-2) 4.06 Troponin I < 0.012 06/21/16 06/22/16 06/22/16 21:15 03:31 03:31 Creatine Kinase 435 H CK-MB (CK-2) 4.31 4.91 H Troponin I < 0.012 < 0.012 Impressions: KUB X-Ray 06/25/16 00:00 IMPRESSION: Nasogastric catheter is present with tip overlying the lower abdominal midline, probable antral region of the stomach. Chest X-Ray 06/30/16 06:00 IMPRESSION: Interval worsening of small-moderate bibasilar opacity -effusion, right more than left. Lines and tubes. Assessment & Plan - Diagnosis (1) Acute hypoxemic respiratory failure Plan: Status post extubation. Satting quite well on nasal cannula. (2) Delirium tremens Is this a current diagnosis for this admission?: YesPlan: I believe the patient has past the period of time where his DTs would be of great harm. Unfortunately, I think he is left with a lowered baseline mentation. (3) Alcohol abuse Is this a current diagnosis for this admission?: YesPlan: Cessation is advised. Patient is not able to area on a conversation about alcohol cessation today. (4) Status post total shoulder arthroplasty Qualifiers: Laterality: right Qualified Code(s): Z96.611 - Presence of right artificial shoulder joint Is this a current diagnosis for this admission?: YesPlan: Orthopedic surgery is following. The arm is swollen from the shoulder down to the hands. Continue by mouth pain medication with IV for breakthrough. (5) Pneumonia Qualifiers: Pneumonia type: due to other aerobic Gram-negative bacteria Is this a current diagnosis for this admission?: YesPlan: Patient is currently on cefepime. Serratia was found in patients trach aspirate. (6) COPD (chronic obstructive pulmonary disease) Is this a current diagnosis for this admission?: YesPlan: This is without acute exacerbation. He is currently receiving nebulizers as needed. (7) Cirrhosis Qualifiers: Hepatic cirrhosis type: alcoholic cirrhosis Is this a current diagnosis for this admission?: Yes (8) HTN (hypertension) Is this a current diagnosis for this admission?: YesPlan: Patient's blood pressure is currently stable in the low 100s. His outpatient antihypertensives are currently being held. He has when necessary medications available should his blood pressure become uncontrollable. However, patient has had episodes of hypotension during this admission so we should be careful when administering antihypertensives until it is necessary. (9) Hypomagnesemia Is this a current diagnosis for this admission?: YesPlan: Currently resolved. (10) Hypotension Is this a current diagnosis for this admission?: YesPlan: Currently resolved. (11) Thrombocytopenia Is this a current diagnosis for this admission?: YesPlan: Secondary underlying alcoholism and cirrhosis. Resolved. Continue heparin every 8. (12) Tobacco abuse Is this a current diagnosis for this admission?: YesPlan: Cessation is advised. The patient has transdermal nicotine patch. (13) Generalized weakness Plan: Patient has generalized weakness after prolonged hospital stay on the ventilator. PT has been consult. Now that his NG tube has been pulled out, we could consider feeding once he wakes up and can pass a bedside swallow. - Time Time Spent with patient: 15-24 minutes Anticipated discharge: SNF - Inpatient Certification Medical Necessity: Need Close Monitoring Due to Risk of Patient Decompensation, Need for IV Antibiotics
--- NOTE | 2016-07-02 21:22 | PDOC PROGRESS REPORT ---
Subjective Progress Note for:: 07/02/16 Subjective:: 48 hrs s/p extubation stable Physical Exam Vital Signs: Temp Pulse Resp BP Pulse Ox 99.0 F 87 18 127/67 H 94 07/02/16 07:31 07/02/16 07:49 07/02/16 07:49 07/02/16 07:31 07/02/16 07:49 Intake & Output 07/01/16 07/02/16 07/03/16 06:59 06:59 06:59 Intake Total 3121 2355 Output Total 2505 3600 Balance 616 -1245 Weight 72.1 kg 69.4 kg General appearance: PRESENT: no acute distress, disheveled, thin, well-developed Head exam: PRESENT: atraumatic, normocephalic Eye exam: PRESENT: conjunctiva pale Mouth exam: PRESENT: dry mucosa, neck supple Teeth exam: PRESENT: poor dentation Neck exam: ABSENT: carotid bruit, JVD, lymphadenopathy, thyromegaly Pulses: PRESENT: normal radial pulses GI/Abdominal exam: PRESENT: normal bowel sounds, soft. ABSENT: distended, guarding, mass, organolmegaly, rebound, tenderness Rectal exam: PRESENT: deferred Gentrourinary exam: PRESENT: indwelling catheter Skin exam: PRESENT: dry Results Laboratory Results: 07/02/16 05:55 07/02/16 05:55 07/02/16 07/02/16 05:55 05:55 WBC 7.9 RBC 2.81 L Hgb 9.4 L Hct 27.7 L MCV 98 H MCH 33.5 H MCHC 34.1 RDW 14.0 Plt Count 214 Seg Neutrophils % 61.6 Lymphocytes % 24.0 Monocytes % 9.7 Eosinophils % 3.8 Basophils % 0.9 Absolute Neutrophils 4.9 Absolute Lymphocytes 1.9 Absolute Monocytes 0.8 Absolute Eosinophils 0.3 Absolute Basophils 0.1 Sodium 137.7 Potassium 3.8 D Chloride 104 Carbon Dioxide 26 Anion Gap 8 BUN 10 Creatinine 0.53 Est GFR ( Amer) > 60 Est GFR (Non-Af Amer) > 60 Glucose 115 H Calcium 8.6 Magnesium 1.6 06/21/16 06/21/16 06/21/16 15:09 15:09 21:15 Creatine Kinase 280 H 328 H CK-MB (CK-2) 4.06 Troponin I < 0.012 06/21/16 06/22/16 06/22/16 21:15 03:31 03:31 Creatine Kinase 435 H CK-MB (CK-2) 4.31 4.91 H Troponin I < 0.012 < 0.012 Impressions: KUB X-Ray 06/25/16 00:00 IMPRESSION: Nasogastric catheter is present with tip overlying the lower abdominal midline, probable antral region of the stomach. Chest X-Ray 06/30/16 06:00 IMPRESSION: Interval worsening of small-moderate bibasilar opacity -effusion, right more than left. Lines and tubes. Assessment & Plan - Diagnosis (1) Alcohol abuse Is this a current diagnosis for this admission?: No (2) COPD (chronic obstructive pulmonary disease) Is this a current diagnosis for this admission?: YesPlan: stable (3) Status post total shoulder arthroplasty Qualifiers: Laterality: right Qualified Code(s): Z96.611 - Presence of right artificial shoulder joint Is this a current diagnosis for this admission?: Yes (4) Tobacco abuse Is this a current diagnosis for this admission?: Yes (5) Emphysema lung Is this a current diagnosis for this admission?: Yes (6) Cirrhosis Qualifiers: Hepatic cirrhosis type: alcoholic cirrhosis Is this a current diagnosis for this admission?: Yes (7) Delirium tremens Is this a current diagnosis for this admission?: Yes (8) Hepatitis C Is this a current diagnosis for this admission?: Yes
[2016-07-02] MEDS: DEXTROSE 5%-NORMAL SALINE 1,000 ML IV PRN (21:55)
[2016-07-03] MEDS: MORPHINE SULFATE 10 MG/ML INJ IV SCH ×2 (02:28→06:41)
[2016-07-03] MEDS: IPRATROPIUM/ALBUTEROL 0.5-2.5 MG/3 ML AMPUL NEB SCH ×4 (02:32→19:57)
[2016-07-03] MEDS: HEPARIN SOD (PORCINE) 5,000 UNIT/ML 1 ML SYRINGE SUBCUT SCH ×3 (06:41→22:17)
[2016-07-03] MEDS: DULOXETINE HCL 30 MG CAPSULE.DR PO SCH (10:06)
[2016-07-03] MEDS: ATORVASTATIN CALCIUM 10 MG TABLET NG SCH (10:06)
[2016-07-03] MEDS: FLUCONAZOLE 100 MG TABLET PO SCH (10:06)
[2016-07-03] MEDS: METOPROLOL TARTRATE 25 MG TABLET PO SCH (10:06)
[2016-07-03] MEDS: LISINOPRIL 10 MG TABLET PO SCH (10:06)
[2016-07-03] MEDS: THIAMINE HCL 100 MG TABLET PO SCH (10:06)
[2016-07-03] MEDS: ASPIRIN 81 MG TABLET, CHEWABLE PO SCH (10:07)
[2016-07-03] MEDS: GABAPENTIN 300 MG CAPSULE PO SCH (10:07)
[2016-07-03] MEDS: LEVOFLOXACIN 750 MG TABLET PO SCH (10:07)
--- NOTE | 2016-07-03 11:32 | PDOC PROGRESS REPORT ---
Subjective Progress Note for:: 07/03/16 Subjective:: awake veery confused Physical Exam Vital Signs: Temp Pulse Resp BP Pulse Ox 98.9 F 95 18 143/76 H 91 L 07/03/16 07:31 07/03/16 08:00 07/03/16 08:00 07/03/16 07:31 07/03/16 08:00 Intake & Output 07/02/16 07/03/16 07/04/16 06:59 06:59 06:59 Intake Total 2355 900 Output Total 3600 1400 Balance -1245 -500 Weight 69.4 kg 68.1 kg General appearance: PRESENT: no acute distress, disheveled, thin, well-developed Head exam: PRESENT: atraumatic, normocephalic Eye exam: PRESENT: conjunctiva pale Mouth exam: PRESENT: moist, neck supple Neck exam: ABSENT: carotid bruit, JVD, lymphadenopathy, thyromegaly Respiratory exam: PRESENT: decreased breath sounds, prolonged expiratory phas, unlabored Cardiovascular exam: PRESENT: RRR, +S1, +S2 Pulses: PRESENT: normal radial pulses GI/Abdominal exam: PRESENT: normal bowel sounds, soft. ABSENT: distended, guarding, mass, organolmegaly, rebound, tenderness Rectal exam: PRESENT: deferred Gentrourinary exam: PRESENT: indwelling catheter Musculoskeletal exam: PRESENT: normal inspection Neurological exam: PRESENT: awake Focused psych exam: PRESENT: delusional, paranoid Skin exam: PRESENT: dry, warm Results Laboratory Results: 07/02/16 05:55 07/02/16 05:55 06/21/16 06/21/16 06/21/16 15:09 15:09 21:15 Creatine Kinase 280 H 328 H CK-MB (CK-2) 4.06 Troponin I < 0.012 06/21/16 06/22/16 06/22/16 21:15 03:31 03:31 Creatine Kinase 435 H CK-MB (CK-2) 4.31 4.91 H Troponin I < 0.012 < 0.012 Impressions: KUB X-Ray 06/25/16 00:00 IMPRESSION: Nasogastric catheter is present with tip overlying the lower abdominal midline, probable antral region of the stomach. Chest X-Ray 06/30/16 06:00 IMPRESSION: Interval worsening of small-moderate bibasilar opacity -effusion, right more than left. Lines and tubes. Assessment & Plan - Diagnosis (1) Alcohol abuse Is this a current diagnosis for this admission?: No (2) COPD (chronic obstructive pulmonary disease) Is this a current diagnosis for this admission?: Yes (3) Status post total shoulder arthroplasty Qualifiers: Laterality: right Qualified Code(s): Z96.611 - Presence of right artificial shoulder joint Is this a current diagnosis for this admission?: Yes (4) Tobacco abuse Is this a current diagnosis for this admission?: Yes (5) Emphysema lung Is this a current diagnosis for this admission?: Yes (6) Cirrhosis Qualifiers: Hepatic cirrhosis type: alcoholic cirrhosis Is this a current diagnosis for this admission?: Yes (7) Delirium tremens Is this a current diagnosis for this admission?: Yes (8) Hepatitis C Is this a current diagnosis for this admission?: Yes
--- NOTE | 2016-07-03 13:44 | PDOC PROGRESS REPORT ---
Subjective Progress Note for:: 07/03/16 Subjective:: Reason for visit: Follow-up acute hypoxic respiratory failure, delirium tremens , metabolic encephalopathy, right shoulder arthroplasty. Hospital course: Per other providers, "This is a follow-up visit for acute respiratory failure and DTs. The patient was admitted for right shoulder arthroplasty. While he was here he developed DVTs and acute respiratory failure. Was managed in the ICU on the ventilator not only for this but also for sepsis. The patient was extubated 06/28/2016 And transitioned out to the floor 2 days ago. At the bedside the patient is quite sleepy today. He received pain medication and Ativan. In general he can be verbally combative and at times agitated enough to require not only restraints but mittens. At this point he is quite stable and is awaiting SNF placement. Overnight he pulled out his NG tube." I inherited his care Saturday and he remains very confused, continues to have auditory and visual hallucinations, pulling at his Seo catheter and IV access requiring soft restraints. He is not oriented to person place or time and therefore cannot provide a reliable review of systems her medical history. ROS: As above, unobtainable due to patient's mental state. Physical Exam Vital Signs: Temp Pulse Resp BP Pulse Ox 98.9 F 95 18 143/76 H 91 L 07/03/16 07:31 07/03/16 08:00 07/03/16 08:00 07/03/16 07:31 07/03/16 08:00 Intake & Output 07/02/16 07/03/16 07/04/16 06:59 06:59 06:59 Intake Total 2355 900 0 Output Total 3600 1400 600 Balance -1245 -500 -600 Weight 69.4 kg 68.1 kg EXAM GENERAL: NAD; well developed, well nourished; no obese; alert and oriented to person, place, time, situation HEENT: normocephalic, atraumatic; no conjunctival injection, no scleral icterus ; oral mucosa moist; RESPIRATORY: no accessory muscle use, no increased WOB, good air entry bilaterally; no wheezes, rales, rhonchi; no inspiratory crackles CARDIO: no JVD; RRR; no systolic murmur; no tachycardia GI: soft; nondistended; normal bowel sounds; no hepato spleno megaly; no rebound, rigidity, guarding VASCULAR: no pallor; 2+ radial, DP pulse; normal capillary refill; right femoral line in place, c/d/i EXTREMITIES: no calf tender; no palpable cords in calf; no clubbing, cyanosis , pedal edema; moves all 4; Rt shoulder wound is c/d/i PSYCH: Agitated and confused SKIN: warm; moist; no petechiae; no telengectasias; no jaundice; no rash Results Laboratory Results: 07/02/16 05:55 07/02/16 05:55 06/21/16 06/21/16 06/21/16 15:09 15:09 21:15 Creatine Kinase 280 H 328 H CK-MB (CK-2) 4.06 Troponin I < 0.012 06/21/16 06/22/16 06/22/16 21:15 03:31 03:31 Creatine Kinase 435 H CK-MB (CK-2) 4.31 4.91 H Troponin I < 0.012 < 0.012 Impressions: KUB X-Ray 06/25/16 00:00 IMPRESSION: Nasogastric catheter is present with tip overlying the lower abdominal midline, probable antral region of the stomach. Chest X-Ray 06/30/16 06:00 IMPRESSION: Interval worsening of small-moderate bibasilar opacity -effusion, right more than left. Lines and tubes. Status: Imported from PACS Assessment & Plan - Diagnosis (1) Acute metabolic encephalopathy Is this a current diagnosis for this admission?: YesPlan: Worse. (2) Acute hypoxemic respiratory failure Is this a current diagnosis for this admission?: YesPlan: Improved (3) Alcohol abuse Is this a current diagnosis for this admission?: YesPlan: With acute DTs. Unchanged (4) COPD (chronic obstructive pulmonary disease) Is this a current diagnosis for this admission?: YesPlan: Stable, no active bronchospasm. (5) Delirium tremens Is this a current diagnosis for this admission?: YesPlan: Unchanged; persists. (6) Pneumonia Qualifiers: Pneumonia type: due to other aerobic Gram-negative bacteria Is this a current diagnosis for this admission?: YesPlan: Unchanged. Serratia and Pseudomonas found in tracheal aspirate. (7) Tobacco abuse Is this a current diagnosis for this admission?: YesPlan: Possible tobacco withdrawal. (8) Status post total shoulder arthroplasty Qualifiers: Laterality: right Qualified Code(s): Z96.611 - Presence of right artificial shoulder joint Is this a current diagnosis for this admission?: YesPlan: Stable, awaiting placement. - Time Time Spent with patient: 35 or more minutes Medications reviewed and adjusted accordingly: Yes Anticipated discharge: SNF Within: when bed available - Plan Summary Plan Summary: - Respiratory status is stabilized we'll continue to wean supplemental O2. Successfully extubated 06/28. Pulmonology still following. Appreciate their input. - Wean scheduled centrally acting agents, continue soft wrist restraints to prevent self-harm, discontinue Seo catheter as a potential source of agitation - Start nicotine replacement therapy - Empiric high-dose thiamine for presumptive treatment of Wernicke's encephalopathy. Suspicion is quite high for adverse drug reaction related to general anesthesia with prolonged effects due to underlying comorbidities not the least of which includes his alcohol use, acute delirium tremens, cirrhosis with poor clearance of medications and continued reliance on opioids for pain control postoperatively. Levaquin being used and the current treatment of his pneumonia has the potential to confuse and prolong his delirium as well, consider change to alternative agent if his condition fails to improve. - Follow up LFTs and ammonia level in the morning. - Prognosis guarded. Disposition pending.
[2016-07-03] MEDS: THIAMINE HCL 500 MG in NORMAL SALINE 50 ML IV SCH ×2 (14:35→18:29)
[2016-07-03] MEDS: DEXTROSE 5%-NORMAL SALINE 1,000 ML IV PRN (20:56)
--- NOTE | 2016-07-03 20:57 | PDOC PROGRESS REPORT ---
Subjective Progress Note for:: 07/03/16 Subjective:: Patient appropriate and oriented to self but unfortunately is not oriented to time place. Cannot recognize me as his surgeon either. Physical Exam Vital Signs: Temp Pulse Resp BP Pulse Ox 36.9 C 95 18 152/69 H 95 07/03/16 19:27 07/03/16 19:27 07/03/16 19:27 07/03/16 19:27 07/03/16 19:27 Intake & Output 07/02/16 07/03/16 07/04/16 06:59 06:59 06:59 Intake Total 2355 900 0 Output Total 3600 1400 1100 Balance -1245 -500 -1100 Weight 69.4 kg 68.1 kg General appearance: PRESENT: no acute distress, cooperative Head exam: PRESENT: atraumatic Respiratory exam: PRESENT: symmetrical, unlabored. ABSENT: accessory muscle use , tachypnea Pulses: PRESENT: normal radial pulses Vascular exam: PRESENT: normal capillary refill Neurological exam: PRESENT: awake, oriented to person. ABSENT: oriented to place, oriented to time, oriented to situation Adult Front & Back Image: 1 - Dressing with minimal drainage. Cabery and incision dry clean and intact. Neurovascular intact distally. Results Laboratory Results: 07/02/16 05:55 07/02/16 05:55 06/21/16 06/21/16 06/21/16 15:09 15:09 21:15 Creatine Kinase 280 H 328 H CK-MB (CK-2) 4.06 Troponin I < 0.012 06/21/16 06/22/16 06/22/16 21:15 03:31 03:31 Creatine Kinase 435 H CK-MB (CK-2) 4.31 4.91 H Troponin I < 0.012 < 0.012 Impressions: KUB X-Ray 06/25/16 00:00 IMPRESSION: Nasogastric catheter is present with tip overlying the lower abdominal midline, probable antral region of the stomach. Chest X-Ray 06/30/16 06:00 IMPRESSION: Interval worsening of small-moderate bibasilar opacity -effusion, right more than left. Lines and tubes. Assessment & Plan - Plan Summary Plan Summary: Patient is status post right total shoulder arthroplasty. Patient is confused but awake and still breathing on his own. Will discuss with hospitalist Treatment. Pertaining to the right shoulder continue sling and pendulum exercises.
[2016-07-03] MEDS: LORAZEPAM INJ 2 MG/1 ML VIAL IV PRN (21:00)
[2016-07-03] MEDS: MORPHINE SULFATE 10 MG/ML INJ IV PRN (23:43)
[2016-07-04] MEDS: IPRATROPIUM/ALBUTEROL 0.5-2.5 MG/3 ML AMPUL NEB SCH ×4 (01:36→20:27)
[2016-07-04] MEDS: METOPROLOL TARTRATE 25 MG TABLET PO SCH (08:00)
[2016-07-04] MEDS: GABAPENTIN 300 MG CAPSULE PO SCH (08:00)
[2016-07-04] MEDS: ATORVASTATIN CALCIUM 10 MG TABLET NG SCH (08:00)
[2016-07-04] MEDS: ASPIRIN 81 MG TABLET, CHEWABLE PO SCH (10:00)
[2016-07-04] MEDS: DULOXETINE HCL 30 MG CAPSULE.DR PO SCH (10:00)
[2016-07-04] MEDS: LISINOPRIL 10 MG TABLET PO SCH (10:00)
[2016-07-04] MEDS: FLUCONAZOLE 100 MG TABLET PO SCH (10:00)
[2016-07-04] MEDS: LEVOFLOXACIN 750 MG TABLET PO SCH (10:00)
[2016-07-04] MEDS: THIAMINE HCL 500 MG in NORMAL SALINE 50 ML IV SCH ×3 (10:00→18:00)
[2016-07-04] MEDS ORDERED: HALOPERIDOL 2 MG TABLET ONE ×2 (11:12→17:44)
[2016-07-04] MEDS: HEPARIN SOD (PORCINE) 5,000 UNIT/ML 1 ML SYRINGE SUBCUT SCH ×2 (14:00→21:02)
--- NOTE | 2016-07-04 16:38 | PROGRESS NOTE E ---
Progress Note NAME: DORY MCGRAW : 1955 AGE: 61Y DATE: 07/04/2016 ROOM: 302 SUBJECTIVE: Nursing reports the patient remains extremely confused and has actually become combative with she and his own family members. He continues to hallucinate and has paranoid delusions, convinced that we are trying to kill him and will not let him go home until we are successful. OBJECTIVE: VITAL SIGNS: The patient's vital signs are stable, please see nurse's notes, which are reviewed. GENERAL: He is combative and uncooperative with his exam and my attempts to examine further resulted in extreme agitation and so were aborted. SKIN: His skin is of normal color. There is no diaphoresis. His voice is clear, strong, and loud. EXTREMITIES: He moves all 4 extremities without difficulty, including the right shoulder that was operated on previously. HEENT: Oral mucosa is moist. He is in no respiratory distress. He is quite confused. ASSESSMENT: 1. ALCOHOLIC CIRRHOSIS WITH RESULTANT ENCEPHALOPATHY. 2. ACUTE DELIRIUM, LIKELY RELATED TO MEDICATION EFFECT IN THE SETTING OF #1. 3. RIGHT SHOULDER ARTHROPLASTY. PLAN: Will add Haldol to his regimen and monitor for effect. These behaviors prevent placement in rehab at this time, unfortunately. DICTATING PHYSICIAN: GLADYS BILLINGS M.D. [id number] PHY#: [id number] ID: [id number] JOB#: [id number] ACCT: [id number] cc: >
[2016-07-04] MEDS: MORPHINE SULFATE 10 MG/ML INJ IV PRN (21:03)
[2016-07-04 21:44] LABS: ABSOLUTE BASOPHILS # (AUTO) 0.1 10^3/uL (0.0-0.2); ABSOLUTE EOSINOPHILS # (AUTO) 0.2 10^3/uL (0.0-0.6); ABSOLUTE LYMPHOCYTES (AUTO) 1.6 10^3/uL (0.5-4.7); ABSOLUTE MONOCYTES (AUTO) 0.8 10^3/uL (0.1-1.4); ABSOLUTE NEUT (AUTO) 6.3 10^3/uL (1.7-8.2); EOSINOPHILS % (AUTO) 2.1 % (0-6); HEMATOCRIT 30.6 % (37.9-51.0); HEMOGLOBIN 10.2 g/dL (13.5-17.0); LYMPHOCYTES % (AUTO) 18.1 % (13-45); MEAN CORPUSCULAR HEMOGLOBIN 32.5 pg (27.0-33.4); MEAN CORPUSCULAR HGB CONC 33.3 g/dL (32.0-36.0); MEAN CORPUSCULAR VOLUME 98 fl (80-97); MONOCYTES % (AUTO) 9.3 % (3-13); RED BLOOD COUNT 3.14 10^6/uL (4.35-5.55); RED CELL DISTRIBUTION WIDTH 13.6 % (11.5-14.0); SEGMENTED NEUTROPHILS % (AUTO) 69.5 % (42-78); WHITE BLOOD COUNT 9.1 10^3/uL (4.0-10.5)
[2016-07-04 22:03] LABS: ANION GAP 11 (5-19); BLOOD UREA NITROGEN 7 mg/dL (7-20); CALCIUM 8.9 mg/dL (8.4-10.2); CARBON DIOXIDE 21 mmol/L (22-30); CHLORIDE 106 mmol/L (98-107); CREATININE RESULT 0.52 mg/dL (0.52-1.25); GLUCOSE 111 mg/dL (75-110); MAGNESIUM 1.6 mg/dL (1.6-2.3); POTASSIUM 3.5 mmol/L (3.6-5.0); SODIUM 138.4 mmol/L (137-145)
[2016-07-04] MEDS ORDERED: MAGNESIUM SULFATE/D5W 100 ML IV ONE (23:00)
[2016-07-04] MEDS ORDERED: POTASSIUM CHLORIDE 20 MEQ/15 ML UDCUP PO ONE (23:00)
[2016-07-04] MEDS: LORAZEPAM INJ 2 MG/1 ML VIAL IV PRN (23:40)
[2016-07-05] MEDS: METOPROLOL TARTRATE PF/INJ 5 MG/5 ML SDV IV PRN (00:19)
[2016-07-05] MEDS: ACETAMINOPHEN SOLN 325 MG/10.15 ML UDCUP PO PRN (00:19)
[2016-07-05] MEDS: IPRATROPIUM/ALBUTEROL 0.5-2.5 MG/3 ML AMPUL NEB SCH ×4 (01:33→20:21)
[2016-07-05] MEDS: HEPARIN SOD (PORCINE) 5,000 UNIT/ML 1 ML SYRINGE SUBCUT SCH ×3 (05:24→21:40)
[2016-07-05] MEDS: MORPHINE SULFATE 10 MG/ML INJ IV PRN (05:30)
[2016-07-05] MEDS: DEXTROSE 5%-NORMAL SALINE 1,000 ML IV PRN ×2 (05:31→21:39)
[2016-07-05] MEDS: METOPROLOL TARTRATE 25 MG TABLET PO SCH (09:39)
[2016-07-05] MEDS: LEVOFLOXACIN 750 MG TABLET PO SCH (09:39)
[2016-07-05] MEDS: GABAPENTIN 300 MG CAPSULE PO SCH (09:40)
[2016-07-05] MEDS: FLUCONAZOLE 100 MG TABLET PO SCH (09:40)
[2016-07-05] MEDS: ASPIRIN 81 MG TABLET, CHEWABLE PO SCH (09:40)
[2016-07-05] MEDS: DULOXETINE HCL 30 MG CAPSULE.DR PO SCH (09:40)
[2016-07-05] MEDS: LISINOPRIL 10 MG TABLET PO SCH (09:40)
[2016-07-05] MEDS: ATORVASTATIN CALCIUM 10 MG TABLET NG SCH (09:41)
[2016-07-05] MEDS: THIAMINE HCL 500 MG in NORMAL SALINE 50 ML IV SCH (09:43)
[2016-07-05] MEDS: HALOPERIDOL 1 MG TABLET PO SCH ×2 (09:44→17:11)
--- NOTE | 2016-07-05 10:41 | EKG REPORT ---
SEVERITY:- OTHERWISE NORMAL ECG - MULTIFORM VENTRICULAR PREMATURE COMPLEXES SINUS RHYTHM BASELINE ARTIFACT. REPEAT EKG. : Confirmed by: Maria De Jesus Orosco MD 05-Jul-2016 10:40:52
--- NOTE | 2016-07-05 11:11 | PDOC PROGRESS REPORT ---
Subjective Progress Note for:: 07/04/16 Subjective:: Awake and confused believes that there are monkeys on the bed Physical Exam Vital Signs: Temp Pulse Resp BP Pulse Ox 98.9 F 87 18 131/74 H 92 07/05/16 07:54 07/05/16 08:57 07/05/16 08:57 07/05/16 07:54 07/05/16 08:57 Intake & Output 07/04/16 07/05/16 07/06/16 06:59 06:59 06:59 Intake Total 0 1102 Output Total 1100 450 Balance -1100 652 Weight 67 kg 64.4 kg General appearance: PRESENT: no acute distress, disheveled, thin, well-developed Head exam: PRESENT: atraumatic, normocephalic Eye exam: PRESENT: conjunctiva pale, EOMI Teeth exam: PRESENT: poor dentation Neck exam: PRESENT: carotid bruit Respiratory exam: PRESENT: decreased breath sounds, prolonged expiratory phas, rhonchi, symmetrical, unlabored Cardiovascular exam: PRESENT: RRR, +S1, +S2 Pulses: PRESENT: normal radial pulses GI/Abdominal exam: PRESENT: normal bowel sounds, soft. ABSENT: distended, guarding, mass, organolmegaly, rebound, tenderness Rectal exam: PRESENT: deferred Gentrourinary exam: PRESENT: indwelling catheter Musculoskeletal exam: PRESENT: normal inspection Neurological exam: PRESENT: awake Skin exam: PRESENT: dry Results Laboratory Results: 07/04/16 21:36 07/04/16 21:36 07/04/16 07/04/16 07/04/16 21:36 21:36 21:36 WBC 9.1 RBC 3.14 L Hgb 10.2 L Hct 30.6 L MCV 98 H MCH 32.5 MCHC 33.3 RDW 13.6 Plt Count 240 Seg Neutrophils % 69.5 Lymphocytes % 18.1 Monocytes % 9.3 Eosinophils % 2.1 Basophils % 1.0 Absolute Neutrophils 6.3 Absolute Lymphocytes 1.6 Absolute Monocytes 0.8 Absolute Eosinophils 0.2 Absolute Basophils 0.1 Sodium 138.4 Potassium 3.5 L Chloride 106 Carbon Dioxide 21 L Anion Gap 11 BUN 7 Creatinine 0.52 Est GFR ( Amer) > 60 Est GFR (Non-Af Amer) > 60 Glucose 111 H Calcium 8.9 Magnesium 1.6 TSH 3.01 06/21/16 06/21/16 06/21/16 15:09 15:09 21:15 Creatine Kinase 280 H 328 H CK-MB (CK-2) 4.06 Troponin I < 0.012 06/21/16 06/22/16 06/22/16 21:15 03:31 03:31 Creatine Kinase 435 H CK-MB (CK-2) 4.31 4.91 H Troponin I < 0.012 < 0.012 07/04/16 21:36 Creatine Kinase CK-MB (CK-2) Troponin I < 0.012 Impressions: KUB X-Ray 06/25/16 00:00 IMPRESSION: Nasogastric catheter is present with tip overlying the lower abdominal midline, probable antral region of the stomach. Chest X-Ray 06/30/16 06:00 IMPRESSION: Interval worsening of small-moderate bibasilar opacity -effusion, right more than left. Lines and tubes. Assessment & Plan - Diagnosis (1) Alcohol abuse Is this a current diagnosis for this admission?: Yes (2) COPD (chronic obstructive pulmonary disease) Is this a current diagnosis for this admission?: YesPlan: Stable doing well continue current bronchodilator therapy (3) Status post total shoulder arthroplasty Qualifiers: Laterality: right Qualified Code(s): Z96.611 - Presence of right artificial shoulder joint Is this a current diagnosis for this admission?: Yes (4) Tobacco abuse Is this a current diagnosis for this admission?: Yes (5) Emphysema lung Is this a current diagnosis for this admission?: YesPlan: We will sign off from the this patient is stable please do not hesitate if the pulmonary service can be of additional help (6) Cirrhosis Qualifiers: Hepatic cirrhosis type: alcoholic cirrhosis Is this a current diagnosis for this admission?: Yes (7) Delirium tremens Is this a current diagnosis for this admission?: No (8) Hepatitis C Is this a current diagnosis for this admission?: Yes
--- NOTE | 2016-07-05 13:18 | PDOC PROGRESS REPORT ---
Subjective Progress Note for:: 07/05/16 Subjective:: Reason for visit: Follow-up acute hypoxic respiratory failure, delirium tremens , metabolic encephalopathy, right shoulder arthroplasty. Hospital course: Per other providers, "This is a follow-up visit for acute respiratory failure and DTs. The patient was admitted for right shoulder arthroplasty. While he was here he developed DVTs and acute respiratory failure. Was managed in the ICU on the ventilator not only for this but also for sepsis. The patient was extubated 06/28/2016 And transitioned out to the floor 2 days ago. At the bedside the patient is quite sleepy today. He received pain medication and Ativan. In general he can be verbally combative and at times agitated enough to require not only restraints but mittens. At this point he is quite stable and is awaiting SNF placement. Overnight he pulled out his NG tube." I inherited his care Saturday and he remains very confused, continues to have auditory and visual hallucinations, pulling at his Lyn catheter and IV access requiring soft restraints. He was not oriented to person place or time, currently he is oriented to person and place but not to circumstances and though he is more cooperative since removal of his lyn and initiation of haldol, he still references our "efforts to kill him" and he is not being facetious or simply sarcastic, he still seems paranoid. ROS: As above, unreliable due to patient's mental state. Physical Exam Vital Signs: Temp Pulse Resp BP Pulse Ox 98.9 F 87 18 131/74 H 92 07/05/16 07:54 07/05/16 08:57 07/05/16 08:57 07/05/16 07:54 07/05/16 08:57 Intake & Output 07/04/16 07/05/16 07/06/16 06:59 06:59 06:59 Intake Total 0 1102 Output Total 1100 450 Balance -1100 652 Weight 67 kg 64.4 kg General appearance: PRESENT: other - resting more comfortably, restraints off at present, cooperative with his exam for the most part Head exam: PRESENT: atraumatic Eye exam: ABSENT: conjunctival injection Mouth exam: PRESENT: dry mucosa Neck exam: PRESENT: full ROM. ABSENT: JVD Respiratory exam: PRESENT: clear to auscultation tone. ABSENT: accessory muscle use Cardiovascular exam: PRESENT: RRR. ABSENT: diastolic murmur, systolic murmur GI/Abdominal exam: PRESENT: normal bowel sounds, soft. ABSENT: tenderness Musculoskeletal exam: PRESENT: tenderness - some tenderness to palpation and with ROM, particularly the right Neurological exam: PRESENT: alert, awake, oriented to person, oriented to place. ABSENT: oriented to time, oriented to situation Psychiatric exam: PRESENT: unusual affect. ABSENT: agitated Focused psych exam: PRESENT: paranoid Skin exam: PRESENT: dry, warm Results Laboratory Results: 07/04/16 21:36 07/04/16 21:36 07/04/16 07/04/16 07/04/16 21:36 21:36 21:36 WBC 9.1 RBC 3.14 L Hgb 10.2 L Hct 30.6 L MCV 98 H MCH 32.5 MCHC 33.3 RDW 13.6 Plt Count 240 Seg Neutrophils % 69.5 Lymphocytes % 18.1 Monocytes % 9.3 Eosinophils % 2.1 Basophils % 1.0 Absolute Neutrophils 6.3 Absolute Lymphocytes 1.6 Absolute Monocytes 0.8 Absolute Eosinophils 0.2 Absolute Basophils 0.1 Sodium 138.4 Potassium 3.5 L Chloride 106 Carbon Dioxide 21 L Anion Gap 11 BUN 7 Creatinine 0.52 Est GFR ( Amer) > 60 Est GFR (Non-Af Amer) > 60 Glucose 111 H Calcium 8.9 Magnesium 1.6 TSH 3.01 06/21/16 06/21/16 06/21/16 15:09 15:09 21:15 Creatine Kinase 280 H 328 H CK-MB (CK-2) 4.06 Troponin I < 0.012 06/21/16 06/22/16 06/22/16 21:15 03:31 03:31 Creatine Kinase 435 H CK-MB (CK-2) 4.31 4.91 H Troponin I < 0.012 < 0.012 07/04/16 21:36 Creatine Kinase CK-MB (CK-2) Troponin I < 0.012 Assessment & Plan - Diagnosis (1) Acute metabolic encephalopathy Is this a current diagnosis for this admission?: YesPlan: improved. (2) Acute hypoxemic respiratory failure Is this a current diagnosis for this admission?: YesPlan: Improved (3) Alcohol abuse Is this a current diagnosis for this admission?: YesPlan: With resolving acute DTs. improved (4) COPD (chronic obstructive pulmonary disease) Is this a current diagnosis for this admission?: YesPlan: Stable, no active bronchospasm. (5) Delirium tremens Is this a current diagnosis for this admission?: NoPlan: improved (6) Pneumonia Qualifiers: Pneumonia type: due to other aerobic Gram-negative bacteria Is this a current diagnosis for this admission?: YesPlan: improved. Serratia and Pseudomonas found in tracheal aspirate. (7) Tobacco abuse Is this a current diagnosis for this admission?: Yes (8) Status post total shoulder arthroplasty Qualifiers: Laterality: right Qualified Code(s): Z96.611 - Presence of right artificial shoulder joint Is this a current diagnosis for this admission?: YesPlan: stable - Time Time Spent with patient: 25-34 minutes Anticipated discharge: Acute Rehab Within: within 48 hours
[2016-07-06] MEDS: OXYCODONE-ACETAMINOPHEN 5-325 MG TABLET PO PRN ×3 (00:17→21:50)
[2016-07-06] MEDS: IPRATROPIUM/ALBUTEROL 0.5-2.5 MG/3 ML AMPUL NEB SCH ×4 (02:16→19:32)
[2016-07-06] MEDS: HEPARIN SOD (PORCINE) 5,000 UNIT/ML 1 ML SYRINGE SUBCUT SCH ×3 (06:28→21:39)
[2016-07-06] MEDS ORDERED: THIAMINE HCL 250 MG in NORMAL SALINE 50 ML IV SCH (10:00)
[2016-07-06] MEDS: HALOPERIDOL 1 MG TABLET PO SCH ×2 (10:31→17:53)
[2016-07-06] MEDS: LEVOFLOXACIN 750 MG TABLET PO SCH (10:32)
[2016-07-06] MEDS: DULOXETINE HCL 30 MG CAPSULE.DR PO SCH (10:32)
[2016-07-06] MEDS: ATORVASTATIN CALCIUM 10 MG TABLET NG SCH (10:32)
[2016-07-06] MEDS: LISINOPRIL 10 MG TABLET PO SCH (10:32)
[2016-07-06] MEDS: FLUCONAZOLE 100 MG TABLET PO SCH (10:32)
[2016-07-06] MEDS: GABAPENTIN 300 MG CAPSULE PO SCH (10:32)
[2016-07-06] MEDS: METOPROLOL TARTRATE 25 MG TABLET PO SCH (10:33)
[2016-07-06] MEDS: ASPIRIN 81 MG TABLET, CHEWABLE PO SCH (10:33)
[2016-07-06 12:25] LABS: ANION GAP 7 (5-19); BLOOD UREA NITROGEN 9 mg/dL (7-20); CALCIUM 8.5 mg/dL (8.4-10.2); CARBON DIOXIDE 24 mmol/L (22-30); CHLORIDE 105 mmol/L (98-107); CREATININE RESULT 0.52 mg/dL (0.52-1.25); GLUCOSE 124 mg/dL (75-110); MAGNESIUM 1.7 mg/dL (1.6-2.3); PHOSPHORUS 3.4 mg/dL (2.5-4.5); POTASSIUM 3.5 mmol/L (3.6-5.0); SODIUM 135.8 mmol/L (137-145)
--- NOTE | 2016-07-06 13:29 | PDOC PROGRESS REPORT ---
Subjective Progress Note for:: 07/06/16 Subjective:: Reason for visit: Follow-up acute hypoxic respiratory failure, delirium tremens , metabolic encephalopathy, right shoulder arthroplasty. Hospital course: Per other providers, "This is a follow-up visit for acute respiratory failure and DTs. The patient was admitted for right shoulder arthroplasty. While he was here he developed DVTs and acute respiratory failure. Was managed in the ICU on the ventilator not only for this but also for sepsis. The patient was extubated 06/28/2016 And transitioned out to the floor 2 days ago. At the bedside the patient is quite sleepy today. He received pain medication and Ativan. In general he can be verbally combative and at times agitated enough to require not only restraints but mittens. At this point he is quite stable and is awaiting SNF placement. Overnight he pulled out his NG tube." I inherited his care Saturday and he remains very confused, continues to have auditory and visual hallucinations, pulling at his Lyn catheter and IV access requiring soft restraints. He was not oriented to person place or time but currently he is oriented to person and place but not to circumstances; he remains more cooperative since removal of his lyn and initiation of haldol. He still references our "efforts to kill him" and he is not being facetious or simply sarcastic, he still seems paranoid. tele monitoring is picking up occasional bursts of wide complex tachycardia, may be artifact but his potassium and Mg are borderline low. no new events overnight, he has not required ativan in almost 24hrs. he reports being SOA but is 94% on RA for me and in no distress at present. he denies chest pain or palpitations but still has cough with phlegm. ROS: As above, unreliable due to patient's mental state. Physical Exam Vital Signs: Temp Pulse Resp BP Pulse Ox 99.1 F 99 20 133/73 H 96 07/06/16 11:18 07/06/16 11:18 07/06/16 11:18 07/06/16 11:18 07/06/16 11:18 Intake & Output 07/05/16 07/06/16 07/07/16 06:59 06:59 06:59 Intake Total 1102 2721 459 Output Total 450 150 Balance 652 5661 459 Weight 64.4 kg 65 kg General appearance: PRESENT: no acute distress, well-developed, well-nourished Head exam: PRESENT: atraumatic Eye exam: ABSENT: conjunctival injection, scleral icterus Mouth exam: PRESENT: dry mucosa, neck supple Neck exam: PRESENT: full ROM. ABSENT: meningismus, tenderness Respiratory exam: PRESENT: crackles - bilat bases. ABSENT: accessory muscle use , rhonchi, wheezes Cardiovascular exam: PRESENT: RRR. ABSENT: systolic murmur Pulses: PRESENT: normal carotid pulses, normal radial pulses GI/Abdominal exam: PRESENT: normal bowel sounds, soft. ABSENT: tenderness Gentrourinary exam: ABSENT: scrotal swelling Extremities exam: ABSENT: calf tenderness, pedal edema Musculoskeletal exam: PRESENT: tenderness - tender to palpation of the shoulder. ABSENT: full ROM - limited ROM shoulders R>L Neurological exam: PRESENT: alert, awake Focused psych exam: PRESENT: paranoid. ABSENT: pressured speech Skin exam: PRESENT: dry, warm Results Laboratory Results: 07/04/16 21:36 07/06/16 05:45 07/04/16 07/06/16 12:20 05:45 Sodium 135.8 L Potassium 3.5 L Chloride 105 Carbon Dioxide 24 Anion Gap 7 BUN 9 Creatinine 0.52 Est GFR ( Amer) > 60 Est GFR (Non-Af Amer) > 60 Glucose 124 H Calcium 8.5 Phosphorus 3.4 Magnesium 1.7 Stool for White Cells NO WBCs SEEN 07/04/16 12:20 Stool - Stool - Final 07/04/16 12:20 Stool - Stool Stool Culture - Final 06/21/16 06/21/16 06/21/16 15:09 15:09 21:15 Creatine Kinase 280 H 328 H CK-MB (CK-2) 4.06 Troponin I < 0.012 06/21/16 06/22/16 06/22/16 21:15 03:31 03:31 Creatine Kinase 435 H CK-MB (CK-2) 4.31 4.91 H Troponin I < 0.012 < 0.012 07/04/16 21:36 Creatine Kinase CK-MB (CK-2) Troponin I < 0.012 Impressions: KUB X-Ray 06/25/16 00:00 IMPRESSION: Nasogastric catheter is present with tip overlying the lower abdominal midline, probable antral region of the stomach. Chest X-Ray 06/30/16 06:00 IMPRESSION: Interval worsening of small-moderate bibasilar opacity -effusion, right more than left. Lines and tubes. Assessment & Plan - Diagnosis (1) Acute metabolic encephalopathy Is this a current diagnosis for this admission?: YesPlan: improved. (2) Acute hypoxemic respiratory failure Is this a current diagnosis for this admission?: YesPlan: Improved (3) Alcohol abuse Is this a current diagnosis for this admission?: YesPlan: With resolving acute DTs. improved (4) COPD (chronic obstructive pulmonary disease) Is this a current diagnosis for this admission?: YesPlan: Stable, no active bronchospasm. (5) Delirium tremens Is this a current diagnosis for this admission?: NoPlan: improved (6) Pneumonia Qualifiers: Pneumonia type: due to other aerobic Gram-negative bacteria Is this a current diagnosis for this admission?: YesPlan: improved. Serratia and Pseudomonas found in tracheal aspirate. (7) Tobacco abuse Is this a current diagnosis for this admission?: Yes (8) Status post total shoulder arthroplasty Qualifiers: Laterality: right Qualified Code(s): Z96.611 - Presence of right artificial shoulder joint Is this a current diagnosis for this admission?: YesPlan: stable - Time Time Spent with patient: 25-34 minutes - Plan Summary Plan Summary: he continues to improve mentally day by day and appears likely he could transition to rehab when a bed becomes available, youth care specialist consulted yesterday. will ck ECG and labs and replenish electrolytes as needed to get K >4 and Mg >2
[2016-07-06] MEDS ORDERED: POTASSI CL 20 MEQ/50 ML RIDER 20 MEQ/50 ML RTUPB IV ONE (14:00)
[2016-07-06] MEDS ORDERED: MAGNESIUM SULFATE/D5W 1 GM/100 ML RTUPB IV SCH (15:00)
--- NOTE | 2016-07-06 16:36 | PDOC PROGRESS REPORT ---
Subjective Progress Note for:: 07/06/16 Subjective:: Patient resting comfortably in bed. Complaining of soreness of his right shoulder. More oriented than ever before. Still not fully oriented to person time and place. No issues overnight. Physical Exam Vital Signs: Temp Pulse Resp BP Pulse Ox 37.3 C 93 16 133/73 H 96 07/06/16 11:18 07/06/16 14:06 07/06/16 14:06 07/06/16 11:18 07/06/16 11:18 Intake & Output 07/05/16 07/06/16 07/07/16 06:59 06:59 06:59 Intake Total 1102 2721 459 Output Total 450 150 Balance 652 2571 459 Weight 64.4 kg 65 kg Adult Front & Back Image: 1 - Incision is dry clean and intact Steri-Strips are in place. Bruising improving slowly. Good sensation to light touch with full motor 5 out of 5 distally. Patient not wearing sling at the moment laying in bed. Results Laboratory Results: 07/04/16 21:36 07/06/16 05:45 07/06/16 05:45 Sodium 135.8 L Potassium 3.5 L Chloride 105 Carbon Dioxide 24 Anion Gap 7 BUN 9 Creatinine 0.52 Est GFR ( Amer) > 60 Est GFR (Non-Af Amer) > 60 Glucose 124 H Calcium 8.5 Phosphorus 3.4 Magnesium 1.7 07/04/16 12:20 Stool - Stool - Final 07/04/16 12:20 Stool - Stool Stool Culture - Final 06/21/16 06/21/16 06/21/16 15:09 15:09 21:15 Creatine Kinase 280 H 328 H CK-MB (CK-2) 4.06 Troponin I < 0.012 06/21/16 06/22/16 06/22/16 21:15 03:31 03:31 Creatine Kinase 435 H CK-MB (CK-2) 4.31 4.91 H Troponin I < 0.012 < 0.012 07/04/16 21:36 Creatine Kinase CK-MB (CK-2) Troponin I < 0.012 Impressions: KUB X-Ray 06/25/16 00:00 IMPRESSION: Nasogastric catheter is present with tip overlying the lower abdominal midline, probable antral region of the stomach. Chest X-Ray 06/30/16 06:00 IMPRESSION: Interval worsening of small-moderate bibasilar opacity -effusion, right more than left. Lines and tubes. Assessment & Plan - Plan Summary Plan Summary: Patient is a 61-year-old gentleman who is 2 weeks out from right total shoulder arthroplasty. Patient was being moved awkwardly due to the patient being disoriented. I will x-ray his right shoulder to make sure that he does not have a dislocated prosthesis. Grossly he does not look dislocated. He is neurovascularly intact. At this point he is 2 weeks of surgery the wound looks well-healed with no signs of infection. His orthopedic issues are stable at this moment. Patient will be transferred to the hospitalist service to address his medical issues. Waiting for placement. Instructions for right shoulder is to keep the incision dry clean and intact. He is okay to shower. Steri-Strips may fall off and does not need to be replaced. Recommend wearing sling to right upper extremity. We will discuss removal of the sling for another week. Continue nonweightbearing right upper extremity. Avoid external rotation. Okay to do pendulum exercises and passive range of motion exercises. Continue physical therapy. Continue pain control. Follow-up in the office in 2-3 weeks
[2016-07-06] MEDS: DEXTROSE 5%-NORMAL SALINE 1,000 ML IV PRN (20:54)
[2016-07-06] MEDS: NICOTINE 21 MG/24 HR PATCH.TD24 TD PRN (21:36)
[2016-07-06] MEDS: NORMAL SALINE INJ/PF 0.9% 10 ML SDV IV PRN (21:38)
[2016-07-06] MEDS: LORAZEPAM INJ 2 MG/1 ML VIAL IV PRN (23:17)
[2016-07-06] MEDS ORDERED: MAGNESIUM SULFATE/D5W 1 GM/100 ML RTUPB IV ONE (23:59)
[2016-07-07] MEDS: OXYCODONE-ACETAMINOPHEN 5-325 MG TABLET PO PRN ×2 (01:36→21:05)
[2016-07-07] MEDS: IPRATROPIUM/ALBUTEROL 0.5-2.5 MG/3 ML AMPUL NEB SCH ×2 (01:55→08:03)
[2016-07-07] MEDS: NORMAL SALINE INJ/PF 0.9% 10 ML SDV IV PRN (06:11)
[2016-07-07] MEDS: HEPARIN SOD (PORCINE) 5,000 UNIT/ML 1 ML SYRINGE SUBCUT SCH ×3 (06:12→21:05)
--- NOTE | 2016-07-07 10:03 | PDOC PROGRESS REPORT ---
Subjective Progress Note for:: 07/07/16 Subjective:: Reason for visit: Follow-up acute hypoxic respiratory failure, delirium tremens , metabolic encephalopathy, right shoulder arthroplasty. Hospital course: Per other providers, "This is a follow-up visit for acute respiratory failure and DTs. The patient was admitted for right shoulder arthroplasty. While he was here he developed DVTs and acute respiratory failure. Was managed in the ICU on the ventilator not only for this but also for sepsis. The patient was extubated 06/28/2016 And transitioned out to the floor 2 days ago. At the bedside the patient is quite sleepy today. He received pain medication and Ativan. In general he can be verbally combative and at times agitated enough to require not only restraints but mittens. At this point he is quite stable and is awaiting SNF placement. Overnight he pulled out his NG tube." I inherited his care Saturday and he remains very confused, continues to have auditory and visual hallucinations, pulling at his Lyn catheter and IV access requiring soft restraints. He was not oriented to person place or time but currently he is oriented to person and place but not to circumstances; he remains more cooperative since removal of his lyn and initiation of haldol. He still references our "efforts to kill him" and he is not being facetious or simply sarcastic, he still seems paranoid. tele monitoring reported occasional bursts of wide complex tachycardia, may be artifact but his potassium and Mg were borderline low and replaced with resolution of ectopy. ROS: much more calm and cooperative but still confused at times, talking about the hospital is going to take ownership of all his property, currently thinks he is in [place] but interestingly remembers his shoulder surgery. no recollection of me or his surroundings/time/date; therefore ROS is unreliable due to patient's mental state; nursing reports a dose of ativan given last night for agitation, otherwise no new events Physical Exam Vital Signs: Temp Pulse Resp BP Pulse Ox 98.3 F 85 20 134/68 H 97 07/07/16 07:28 07/07/16 07:28 07/07/16 07:28 07/07/16 07:28 07/07/16 07:28 Intake & Output 07/06/16 07/07/16 07/08/16 06:59 06:59 06:59 Intake Total 2721 3046 Output Total 150 1000 Balance 2571 2046 Weight 65 kg 66.5 kg General appearance: PRESENT: no acute distress, cooperative, well-developed Head exam: PRESENT: atraumatic, normocephalic Eye exam: PRESENT: EOMI, PERRLA. ABSENT: scleral icterus Mouth exam: PRESENT: moist, neck supple Neck exam: PRESENT: full ROM. ABSENT: JVD Respiratory exam: PRESENT: clear to auscultation tone, unlabored. ABSENT: accessory muscle use Cardiovascular exam: PRESENT: RRR. ABSENT: systolic murmur Pulses: PRESENT: normal radial pulses GI/Abdominal exam: PRESENT: normal bowel sounds, soft. ABSENT: tenderness Neurological exam: PRESENT: alert, altered, awake Psychiatric exam: PRESENT: flat affect Focused psych exam: PRESENT: paranoid. ABSENT: pressured speech, psychomotor agitation Skin exam: PRESENT: dry, warm Results Laboratory Results: 07/04/16 21:36 07/06/16 05:45 07/06/16 05:45 Sodium 135.8 L Potassium 3.5 L Chloride 105 Carbon Dioxide 24 Anion Gap 7 BUN 9 Creatinine 0.52 Est GFR ( Amer) > 60 Est GFR (Non-Af Amer) > 60 Glucose 124 H Calcium 8.5 Phosphorus 3.4 Magnesium 1.7 07/04/16 12:20 Stool - Stool - Final 07/04/16 12:20 Stool - Stool Stool Culture - Final 06/21/16 06/21/16 06/21/16 15:09 15:09 21:15 Creatine Kinase 280 H 328 H CK-MB (CK-2) 4.06 Troponin I < 0.012 06/21/16 06/22/16 06/22/16 21:15 03:31 03:31 Creatine Kinase 435 H CK-MB (CK-2) 4.31 4.91 H Troponin I < 0.012 < 0.012 07/04/16 21:36 Creatine Kinase CK-MB (CK-2) Troponin I < 0.012 Assessment & Plan - Diagnosis (1) Acute metabolic encephalopathy Is this a current diagnosis for this admission?: YesPlan: improved. (2) Acute hypoxemic respiratory failure Is this a current diagnosis for this admission?: YesPlan: Improved (3) Alcohol abuse Is this a current diagnosis for this admission?: YesPlan: With resolving acute DTs. improved (4) COPD (chronic obstructive pulmonary disease) Is this a current diagnosis for this admission?: YesPlan: Stable, no active bronchospasm. (5) Delirium tremens Is this a current diagnosis for this admission?: NoPlan: improved (6) Pneumonia Qualifiers: Pneumonia type: due to other aerobic Gram-negative bacteria Is this a current diagnosis for this admission?: YesPlan: improved. Serratia and Pseudomonas found in tracheal aspirate. (7) Tobacco abuse Is this a current diagnosis for this admission?: Yes (8) Status post total shoulder arthroplasty Qualifiers: Laterality: right Qualified Code(s): Z96.611 - Presence of right artificial shoulder joint Is this a current diagnosis for this admission?: Yes - Time Time Spent with patient: 25-34 minutes Anticipated discharge: Acute Rehab - awaiting bed offer Within: within 48 hours - Plan Summary Plan Summary: nursing instructed to place peripheral line for prn meds and remove inguinal central line
[2016-07-07] MEDS: LISINOPRIL 10 MG TABLET PO SCH (10:09)
[2016-07-07] MEDS: ATORVASTATIN CALCIUM 10 MG TABLET NG SCH (10:09)
[2016-07-07] MEDS: THIAMINE HCL 100 MG TABLET PO SCH (10:09)
[2016-07-07] MEDS: ASPIRIN 81 MG TABLET, CHEWABLE PO SCH (10:09)
[2016-07-07] MEDS: HALOPERIDOL 1 MG TABLET PO SCH ×2 (10:09→17:00)
[2016-07-07] MEDS: FLUCONAZOLE 100 MG TABLET PO SCH (10:10)
[2016-07-07] MEDS: LEVOFLOXACIN 750 MG TABLET PO SCH (10:10)
[2016-07-07] MEDS: DULOXETINE HCL 30 MG CAPSULE.DR PO SCH (10:10)
[2016-07-07] MEDS: GABAPENTIN 300 MG CAPSULE PO SCH (10:10)
[2016-07-07] MEDS: METOPROLOL TARTRATE 25 MG TABLET PO SCH ×2 (10:10→21:05)
[2016-07-07] MEDS: POTASSIUM CHLORIDE 10 MEQ TABLET.SA PO SCH ×2 (10:10→21:04)
[2016-07-07] MEDS: LORAZEPAM INJ 2 MG/1 ML VIAL IV PRN (12:05)
--- NOTE | 2016-07-07 15:32 | PDOC PROGRESS REPORT ---
Subjective Progress Note for:: 07/07/16 Subjective:: 61-year-old male status post right total shoulder arthroplasty. Currently lying in bed comfortably. No issues. Physical Exam Vital Signs: Temp Pulse Resp BP Pulse Ox 98.3 F 84 16 134/68 H 97 07/07/16 07:28 07/07/16 14:00 07/07/16 08:03 07/07/16 07:28 07/07/16 07:28 Intake & Output 07/06/16 07/07/16 07/08/16 06:59 06:59 06:59 Intake Total 2721 3046 300 Output Total 150 1000 Balance 2571 2046 300 Weight 65 kg 66.5 kg Musculoskeletal exam: PRESENT: other - Right upper extremity: Incision well approximated no erythema or drainage. Intact flexion-extension of the elbow. No sensory deficits. Radial pulse 2+. Results Laboratory Results: 07/04/16 21:36 07/06/16 05:45 06/21/16 06/21/16 06/21/16 15:09 15:09 21:15 Creatine Kinase 280 H 328 H CK-MB (CK-2) 4.06 Troponin I < 0.012 06/21/16 06/22/16 06/22/16 21:15 03:31 03:31 Creatine Kinase 435 H CK-MB (CK-2) 4.31 4.91 H Troponin I < 0.012 < 0.012 07/04/16 21:36 Creatine Kinase CK-MB (CK-2) Troponin I < 0.012 Impressions: KUB X-Ray 06/25/16 00:00 IMPRESSION: Nasogastric catheter is present with tip overlying the lower abdominal midline, probable antral region of the stomach. Chest X-Ray 06/30/16 06:00 IMPRESSION: Interval worsening of small-moderate bibasilar opacity -effusion, right more than left. Lines and tubes. Shoulder X-Ray 07/06/16 00:00 IMPRESSION: NO ACUTE OSSEOUS ABNORMALITY OR HARDWARE COMPLICATION IDENTIFIED. IMPROVED AERATION RIGHT LUNG. Assessment & Plan - Diagnosis (1) Status post total shoulder arthroplasty Qualifiers: Laterality: right Qualified Code(s): Z96.611 - Presence of right artificial shoulder joint Is this a current diagnosis for this admission?: YesPlan: Status post right total shoulder arthroplasty. #1 pendulum exercises along with elbow wrist and hand range of motion #2 heparin for DVT prophylaxis #3 discharge when okay with hospitalist.
--- NOTE | 2016-07-07 17:51 | EKG REPORT ---
SEVERITY:- BORDERLINE ECG - SINUS RHYTHM VENTRICULAR PREMATURE COMPLEX PROBABLE LEFT ATRIAL ABNORMALITY BORDERLINE INFERIOR Q WAVES : Confirmed by: Maria De Jesus Orosco MD 07-Jul-2016 17:50:21
[2016-07-07 19:58] LABS: ALBUMIN 2.9 g/dL (3.5-5.0); ANION GAP 10 (5-19); BLOOD UREA NITROGEN 7 mg/dL (7-20); CALCIUM 8.9 mg/dL (8.4-10.2); CARBON DIOXIDE 22 mmol/L (22-30); CHLORIDE 105 mmol/L (98-107); CREATININE RESULT 0.47 mg/dL (0.52-1.25); GLUCOSE 115 mg/dL (75-110); POTASSIUM 3.5 mmol/L (3.6-5.0)
[2016-07-07 19:59] LABS: ALANINE AMINOTRANSFERASE 47 U/L (21-72); ALKALINE PHOSPHATASE 118 U/L (38-126); ASPARTATE AMINO TRANSFERASE 59 U/L (17-59); BILIRUBIN,DIRECT 0.5 mg/dL (0.0-0.4); BILIRUBIN,TOTAL 1.2 mg/dL (0.2-1.3); TOTAL PROTEIN 6.1 g/dL (6.3-8.2)
[2016-07-07] MEDS: NICOTINE 21 MG/24 HR PATCH.TD24 TD PRN (21:06)
[2016-07-07] MEDS ORDERED: MAGNESIUM SULFATE/D5W 1 GM/100 ML RTUPB IV ONE (23:45)
[2016-07-08] MEDS: OXYCODONE-ACETAMINOPHEN 5-325 MG TABLET PO PRN ×3 (02:44→21:37)
[2016-07-08] MEDS: HEPARIN SOD (PORCINE) 5,000 UNIT/ML 1 ML SYRINGE SUBCUT SCH ×3 (05:15→21:38)
[2016-07-08 06:29] LABS: ABSOLUTE EOSINOPHILS # (AUTO) 0.5 10^3/uL (0.0-0.6); ABSOLUTE LYMPHOCYTES (AUTO) 1.5 10^3/uL (0.5-4.7); ABSOLUTE MONOCYTES (AUTO) 0.7 10^3/uL (0.1-1.4); BASOPHILS % (AUTO) 0.2 % (0-2); EOSINOPHILS % (AUTO) 7.4 % (0-6); HEMATOCRIT 31.9 % (37.9-51.0); HEMOGLOBIN 11.1 g/dL (13.5-17.0); HGB HCT DIFFERENCE 1.4; LYMPHOCYTES % (AUTO) 22.4 % (13-45); MEAN CORPUSCULAR HEMOGLOBIN 32.9 pg (27.0-33.4); MEAN CORPUSCULAR HGB CONC 34.6 g/dL (32.0-36.0); MEAN CORPUSCULAR VOLUME 95 fl (80-97); MONOCYTES % (AUTO) 10.3 % (3-13); RED BLOOD COUNT 3.36 10^6/uL (4.35-5.55); RED CELL DISTRIBUTION WIDTH 13.7 % (11.5-14.0); SEGMENTED NEUTROPHILS % (AUTO) 59.7 % (42-78); WHITE BLOOD COUNT 6.7 10^3/uL (4.0-10.5)
[2016-07-08 07:07] LABS: ANION GAP 9 (5-19); BLOOD UREA NITROGEN 7 mg/dL (7-20); CALCIUM 9.3 mg/dL (8.4-10.2); CARBON DIOXIDE 24 mmol/L (22-30); CHLORIDE 100 mmol/L (98-107); CREATININE RESULT 0.54 mg/dL (0.52-1.25); GLUCOSE 89 mg/dL (75-110); POTASSIUM 4.5 mmol/L (3.6-5.0); SODIUM 132.9 mmol/L (137-145)
[2016-07-08] MEDS ORDERED: TAMSULOSIN HCL 0.4 MG CAP.SR.24H PO ONE (08:00)
[2016-07-08] MEDS: LEVOFLOXACIN 750 MG TABLET PO SCH (09:40)
[2016-07-08] MEDS: GABAPENTIN 300 MG CAPSULE PO SCH (09:40)
[2016-07-08] MEDS: THIAMINE HCL 100 MG TABLET PO SCH (09:45)
[2016-07-08] MEDS: LISINOPRIL 10 MG TABLET PO SCH (09:46)
[2016-07-08] MEDS: DULOXETINE HCL 30 MG CAPSULE.DR PO SCH (09:46)
[2016-07-08] MEDS: ATORVASTATIN CALCIUM 10 MG TABLET NG SCH (09:46)
[2016-07-08] MEDS: ASPIRIN 81 MG TABLET, CHEWABLE PO SCH (09:46)
[2016-07-08] MEDS: POTASSIUM CHLORIDE 10 MEQ TABLET.SA PO SCH ×2 (09:47→21:37)
[2016-07-08] MEDS: METOPROLOL TARTRATE 25 MG TABLET PO SCH ×2 (09:47→21:38)
[2016-07-08] MEDS: HALOPERIDOL 1 MG TABLET PO SCH ×2 (09:48→17:09)
--- NOTE | 2016-07-08 10:26 | PDOC PROGRESS REPORT ---
Subjective Progress Note for:: 07/08/16 Subjective:: Reason for visit: Follow-up acute hypoxic respiratory failure, delirium tremens , metabolic encephalopathy, right shoulder arthroplasty. Hospital course: Per other providers, "This is a follow-up visit for acute respiratory failure and DTs. The patient was admitted for right shoulder arthroplasty. While he was here he developed DVTs and acute respiratory failure. Was managed in the ICU on the ventilator not only for this but also for sepsis. The patient was extubated 06/28/2016 And transitioned out to the floor 2 days ago. At the bedside the patient is quite sleepy today. He received pain medication and Ativan. In general he can be verbally combative and at times agitated enough to require not only restraints but mittens. At this point he is quite stable and is awaiting SNF placement. Overnight he pulled out his NG tube." I inherited his care Saturday and he remains very confused, continues to have auditory and visual hallucinations, pulling at his Lyn catheter and IV access requiring soft restraints. He was not oriented to person place or time but currently he is oriented to person and place but not to circumstances; he remains more cooperative since removal of his lyn and initiation of haldol. He still references our "efforts to kill him" and he is not being facetious or simply sarcastic, he still seems paranoid. unfortunately suffered urine retention overnight and had lyn replaced with 1.5 liters drained and he feels much better. overall his mentation is improving day by day. ROS: much more calm and cooperative but still confused at times, some recollection of me as his doctor but can't place my name or time/date and knows he is in a hospital but not sure which one; therefore ROS is unreliable due to patient's mental state; nursing reports a dose of ativan given last night for agitation, otherwise no new events Physical Exam Vital Signs: Temp Pulse Resp BP Pulse Ox 98.3 F 81 18 161/99 H 100 07/08/16 07:11 07/08/16 07:11 07/08/16 07:11 07/08/16 07:11 07/08/16 07:11 Intake & Output 07/07/16 07/08/16 07/09/16 06:59 06:59 06:59 Intake Total 3046 650 Output Total 1000 2175 Balance 2046 -1525 Weight 66.5 kg 61.8 kg General appearance: PRESENT: no acute distress, cooperative, well-developed, well-nourished Head exam: PRESENT: atraumatic, normocephalic Eye exam: ABSENT: conjunctival injection, scleral icterus Neck exam: PRESENT: full ROM. ABSENT: tenderness Respiratory exam: PRESENT: clear to auscultation tone, unlabored. ABSENT: accessory muscle use Cardiovascular exam: PRESENT: RRR. ABSENT: tachycardia GI/Abdominal exam: PRESENT: normal bowel sounds, soft. ABSENT: tenderness Extremities exam: ABSENT: calf tenderness, pedal edema Neurological exam: PRESENT: alert, awake, oriented to person Psychiatric exam: PRESENT: appropriate affect, normal mood Skin exam: PRESENT: dry, warm Results Laboratory Results: 07/08/16 06:12 07/08/16 06:12 07/04/16 07/04/16 07/08/16 06:01 06:01 06:12 WBC 6.7 RBC 3.36 L Hgb 11.1 L Hct 31.9 L MCV 95 MCH 32.9 MCHC 34.6 RDW 13.7 Plt Count 250 Seg Neutrophils % 59.7 Lymphocytes % 22.4 Monocytes % 10.3 Eosinophils % 7.4 H Basophils % 0.2 Absolute Neutrophils 4.0 Absolute Lymphocytes 1.5 Absolute Monocytes 0.7 Absolute Eosinophils 0.5 Absolute Basophils 0.0 Sodium 137.0 Potassium 3.5 L Chloride 105 Carbon Dioxide 22 Anion Gap 10 BUN 7 Creatinine 0.47 L Est GFR ( Amer) > 60 Est GFR (Non-Af Amer) > 60 Glucose 115 H Calcium 8.9 Total Bilirubin 1.2 AST 59 ALT 47 Alkaline Phosphatase 118 Ammonia < 8.7 L Total Protein 6.1 L Albumin 2.9 L 07/08/16 06:12 WBC RBC Hgb Hct MCV MCH MCHC RDW Plt Count Seg Neutrophils % Lymphocytes % Monocytes % Eosinophils % Basophils % Absolute Neutrophils Absolute Lymphocytes Absolute Monocytes Absolute Eosinophils Absolute Basophils Sodium 132.9 L Potassium 4.5 Chloride 100 Carbon Dioxide 24 Anion Gap 9 BUN 7 Creatinine 0.54 Est GFR ( Amer) > 60 Est GFR (Non-Af Amer) > 60 Glucose 89 Calcium 9.3 Total Bilirubin AST ALT Alkaline Phosphatase Ammonia Total Protein Albumin 06/21/16 06/21/16 06/21/16 15:09 15:09 21:15 Creatine Kinase 280 H 328 H CK-MB (CK-2) 4.06 Troponin I < 0.012 06/21/16 06/22/16 06/22/16 21:15 03:31 03:31 Creatine Kinase 435 H CK-MB (CK-2) 4.31 4.91 H Troponin I < 0.012 < 0.012 07/04/16 21:36 Creatine Kinase CK-MB (CK-2) Troponin I < 0.012 Assessment & Plan - Diagnosis (1) Acute metabolic encephalopathy Is this a current diagnosis for this admission?: YesPlan: improved but not back to baseline. (2) Acute hypoxemic respiratory failure Is this a current diagnosis for this admission?: YesPlan: Improved but not back to baseline (3) Alcohol abuse Is this a current diagnosis for this admission?: Yes (4) COPD (chronic obstructive pulmonary disease) Is this a current diagnosis for this admission?: YesPlan: improved and appears back to baseline (5) Delirium tremens Is this a current diagnosis for this admission?: No (6) Pneumonia Qualifiers: Pneumonia type: due to other aerobic Gram-negative bacteria Is this a current diagnosis for this admission?: YesPlan: resolved with adequate course of abx. Serratia and Pseudomonas found in tracheal aspirate. (7) Tobacco abuse Is this a current diagnosis for this admission?: Yes (8) Status post total shoulder arthroplasty Qualifiers: Laterality: right Qualified Code(s): Z96.611 - Presence of right artificial shoulder joint Is this a current diagnosis for this admission?: YesPlan: orthopedics has released him, rehab goals and restrictions on chart; we have assumed his care and awaiting placement in rehab to get his strength back before returning home to independent living. (9) Urine retention Is this a current diagnosis for this admission?: YesPlan: possible medication side effect combined with advanced age and likely some component of BPH; ck UA, continue lyn, begin bladder training in am, start flomax - Time Time Spent with patient: 35 or more minutes Medications reviewed and adjusted accordingly: Yes Anticipated discharge: Acute Rehab Within: within 24 hours
[2016-07-08 10:54] LABS: APPEARANCE,URINE CLEAR; BILIRUBIN,URINE NEGATIVE (NEGATIVE); GLUCOSE, URINE NEGATIVE (NEGATIVE); KETONES,URINE NEGATIVE (NEGATIVE); LEUKOCYTE ESTERASE,URINE NEGATIVE (NEGATIVE); NITRITE,URINE NEGATIVE (NEGATIVE); PROTEIN,URINE NEGATIVE (NEGATIVE); URINE SPECIFIC GRAVITY 1.011
[2016-07-08] MEDS: TAMSULOSIN HCL 0.4 MG CAP.SR.24H PO SCH (17:09)
[2016-07-09] MEDS: OXYCODONE-ACETAMINOPHEN 5-325 MG TABLET PO PRN ×2 (03:26→21:22)
[2016-07-09] MEDS: HEPARIN SOD (PORCINE) 5,000 UNIT/ML 1 ML SYRINGE SUBCUT SCH ×3 (06:10→21:22)
[2016-07-09] MEDS ORDERED: POTASSIUM CHLORIDE 10 MEQ TABLET.SA PO ONE (08:00)
[2016-07-09] MEDS: GABAPENTIN 300 MG CAPSULE PO SCH (08:21)
[2016-07-09] MEDS: ATORVASTATIN CALCIUM 10 MG TABLET NG SCH (08:21)
[2016-07-09] MEDS: HALOPERIDOL 1 MG TABLET PO SCH ×2 (09:23→17:01)
[2016-07-09] MEDS: ASPIRIN 81 MG TABLET, CHEWABLE PO SCH (09:24)
[2016-07-09] MEDS: THIAMINE HCL 100 MG TABLET PO SCH (09:24)
[2016-07-09] MEDS: LISINOPRIL 10 MG TABLET PO SCH (09:24)
[2016-07-09] MEDS: DULOXETINE HCL 30 MG CAPSULE.DR PO SCH (09:24)
[2016-07-09] MEDS: METOPROLOL TARTRATE 25 MG TABLET PO SCH ×2 (09:25→21:26)
[2016-07-09] MEDS: ACETAMINOPHEN SOLN 325 MG/10.15 ML UDCUP PO PRN (13:26)
--- NOTE | 2016-07-09 14:27 | PDOC PROGRESS REPORT ---
Subjective Progress Note for:: 07/09/16 Subjective:: Reason for visit: Follow-up acute hypoxic respiratory failure, delirium tremens , metabolic encephalopathy, right shoulder arthroplasty. Hospital course: Per other providers, "This is a follow-up visit for acute respiratory failure and DTs. The patient was admitted for right shoulder arthroplasty. While he was here he developed DVTs and acute respiratory failure. Was managed in the ICU on the ventilator not only for this but also for sepsis. The patient was extubated 06/28/2016 And transitioned out to the floor. At the bedside the patient is quite sleepy today. He received pain medication and Ativan. In general he can be verbally combative and at times agitated enough to require not only restraints but mittens. At this point he is quite stable and is awaiting SNF placement. Overnight he pulled out his NG tube." I inherited his care Saturday and he remained very confused, continued to have auditory and visual hallucinations, pulling at his Lyn catheter and IV access requiring soft restraints. He was not oriented to person place or time but currently he is oriented to person and place but not to circumstances; he became more cooperative with removal of his lyn and initiation of haldol. He would still occasionally reference our "efforts to kill him" and he was not being facetious or simply sarcastic, he behaved paranoid. unfortunately suffered urine retention and had yln replaced Saturday with 1.5 liters drained and he feels much better. overall his mentation is improving day by day. ROS: much more calm and cooperative but still confused at times, some recollection of me as his doctor but can't place my name or time/date and knows he is in a hospital but not sure which one; therefore ROS is unreliable due to patient's mental state; nursing reports a dose of ativan given last night for agitation, otherwise no new events Physical Exam Vital Signs: Temp Pulse Resp BP Pulse Ox 97.7 F 70 15 94/47 L 98 07/09/16 11:55 07/09/16 11:55 07/09/16 11:55 07/09/16 11:55 07/09/16 11:55 Intake & Output 07/08/16 07/09/16 07/10/16 06:59 06:59 06:59 Intake Total 650 595 200 Output Total 2175 1600 300 Balance -1525 -1005 -100 Weight 61.8 kg 60.2 kg General appearance: PRESENT: no acute distress, cooperative, well-developed, well-nourished Head exam: PRESENT: atraumatic, normocephalic Eye exam: PRESENT: EOMI. ABSENT: conjunctival injection, scleral icterus Mouth exam: PRESENT: dry mucosa, neck supple Neck exam: PRESENT: full ROM. ABSENT: tenderness Respiratory exam: PRESENT: clear to auscultation otne, unlabored. ABSENT: accessory muscle use Cardiovascular exam: PRESENT: RRR. ABSENT: systolic murmur Pulses: PRESENT: normal radial pulses, +1 pedal pulses bilateral GI/Abdominal exam: PRESENT: normal bowel sounds, soft. ABSENT: tenderness Extremities exam: ABSENT: calf tenderness, pedal edema Musculoskeletal exam: ABSENT: full ROM - limited at shoulders R>L; surgical scar is well approximated, steri strips beginning to fall off, skin is c/d/i without erythema or heat Neurological exam: PRESENT: alert, awake, oriented to person, reflexes normal. ABSENT: oriented to place, oriented to time, oriented to situation Psychiatric exam: PRESENT: appropriate affect, normal mood. ABSENT: agitated, anxious Skin exam: PRESENT: dry, warm Results Laboratory Results: 07/08/16 06:12 07/08/16 06:12 06/21/16 06/21/16 06/21/16 15:09 15:09 21:15 Creatine Kinase 280 H 328 H CK-MB (CK-2) 4.06 Troponin I < 0.012 06/21/16 06/22/16 06/22/16 21:15 03:31 03:31 Creatine Kinase 435 H CK-MB (CK-2) 4.31 4.91 H Troponin I < 0.012 < 0.012 07/04/16 21:36 Creatine Kinase CK-MB (CK-2) Troponin I < 0.012 Impressions: KUB X-Ray 06/25/16 00:00 IMPRESSION: Nasogastric catheter is present with tip overlying the lower abdominal midline, probable antral region of the stomach. Chest X-Ray 06/30/16 06:00 IMPRESSION: Interval worsening of small-moderate bibasilar opacity -effusion, right more than left. Lines and tubes. Shoulder X-Ray 07/06/16 00:00 IMPRESSION: NO ACUTE OSSEOUS ABNORMALITY OR HARDWARE COMPLICATION IDENTIFIED. IMPROVED AERATION RIGHT LUNG. Assessment & Plan - Diagnosis (1) Acute metabolic encephalopathy Is this a current diagnosis for this admission?: YesPlan: improved but not back to baseline. continue haldol (2) Acute hypoxemic respiratory failure Is this a current diagnosis for this admission?: YesPlan: resolved; off supplemental O2 and abx (3) Alcohol abuse Is this a current diagnosis for this admission?: YesPlan: stable. With resolved acute DTs. (4) COPD (chronic obstructive pulmonary disease) Is this a current diagnosis for this admission?: YesPlan: improved and appears back to baseline (5) Delirium tremens Is this a current diagnosis for this admission?: No (6) Pneumonia Qualifiers: Pneumonia type: due to other aerobic Gram-negative bacteria Is this a current diagnosis for this admission?: YesPlan: resolved with adequate course of abx. Serratia and Pseudomonas found in tracheal aspirate. (7) Tobacco abuse Is this a current diagnosis for this admission?: Yes (8) Status post total shoulder arthroplasty Qualifiers: Laterality: right Qualified Code(s): Z96.611 - Presence of right artificial shoulder joint Is this a current diagnosis for this admission?: YesPlan: orthopedics has released him, rehab goals and restrictions on chart; we have assumed his care and awaiting placement in rehab to get his strength back before returning home to independent living. (9) Urine retention Is this a current diagnosis for this admission?: YesPlan: continue flomax and lyn catheter, begin bladder training while we wait on rehab placment. - Time Time Spent with patient: 25-34 minutes Anticipated discharge: Acute Rehab Within: within 24 hours - ready for placement, awaiting bed offer
[2016-07-09] MEDS: TAMSULOSIN HCL 0.4 MG CAP.SR.24H PO SCH (17:01)
[2016-07-10] MEDS: OXYCODONE-ACETAMINOPHEN 5-325 MG TABLET PO PRN ×5 (01:21→23:35)
[2016-07-10] MEDS: HEPARIN SOD (PORCINE) 5,000 UNIT/ML 1 ML SYRINGE SUBCUT SCH ×3 (05:59→22:05)
[2016-07-10] MEDS: ASPIRIN 81 MG TABLET, CHEWABLE PO SCH (09:23)
[2016-07-10] MEDS: ATORVASTATIN CALCIUM 10 MG TABLET NG SCH (09:23)
[2016-07-10] MEDS: THIAMINE HCL 100 MG TABLET PO SCH (09:23)
[2016-07-10] MEDS: DULOXETINE HCL 30 MG CAPSULE.DR PO SCH (09:24)
[2016-07-10] MEDS: GABAPENTIN 300 MG CAPSULE PO SCH (09:24)
[2016-07-10] MEDS: METOPROLOL TARTRATE 25 MG TABLET PO SCH ×2 (09:25→22:05)
[2016-07-10] MEDS: HALOPERIDOL 1 MG TABLET PO SCH ×2 (10:25→17:50)
[2016-07-10] MEDS: LISINOPRIL 10 MG TABLET PO SCH (10:31)
[2016-07-10] MEDS: TAMSULOSIN HCL 0.4 MG CAP.SR.24H PO SCH (17:50)
--- NOTE | 2016-07-10 17:52 | PDOC PROGRESS REPORT ---
Subjective Progress Note for:: 07/10/16 Subjective:: Mr. Volodymyr Fu is a 61-year-old man with a history of alcohol abuse who underwent a right shoulder arthroplasty on 06/21/2016. We were consulted postoperatively because of hypotension. The patient went on to develop delirium tremens. He required ventilator management in the ICU for respiratory failure and sepsis. He was extubated on 06/28/2016. Afterwards he varied from somnolence to confusion. He developed auditory and visual hallucinations. He improved somewhat after Seo catheter removal but then developed urinary retention requiring reinsertion of the Seo. The patient has generally improved but is still confused at times. She is generally weak. Case management is involved and we are awaiting SNF placement. Today the patient offers no new complaint. Physical Exam Vital Signs: Temp Pulse Resp BP Pulse Ox 97.7 F 69 17 120/67 97 07/10/16 11:25 07/10/16 11:25 07/10/16 11:25 07/10/16 11:25 07/10/16 11:25 Intake & Output 07/09/16 07/10/16 07/11/16 06:59 06:59 06:59 Intake Total 595 932 358 Output Total 1600 1700 275 Balance -1005 -768 83 Weight 60.2 kg 59.9 kg Additional comments: General appearance: PRESENT: no acute distress, cooperative, well-developed, well-nourished Head exam: PRESENT: atraumatic, normocephalic Eye exam: PRESENT: EOMI. ABSENT: conjunctival injection, scleral icterus Mouth exam: PRESENT: dry mucosa, neck supple Neck exam: PRESENT: full ROM. ABSENT: tenderness Respiratory exam: PRESENT: clear to auscultation tone, unlabored. ABSENT: accessory muscle use Cardiovascular exam: PRESENT: RRR. ABSENT: systolic murmur Pulses: PRESENT: normal radial pulses, +1 pedal pulses bilateral GI/Abdominal exam: PRESENT: normal bowel sounds, soft. ABSENT: tenderness Extremities exam: ABSENT: calf tenderness, pedal edema Musculoskeletal exam: ABSENT: full ROM - limited at shoulders R>L; surgical scar is well approximated, steri strips beginning to fall off, skin is c/d/i without erythema or heat Neurological exam: PRESENT: alert, awake, oriented to person, reflexes normal. ABSENT: oriented to place, oriented to time, oriented to situation Psychiatric exam: PRESENT: appropriate affect, normal mood. ABSENT: agitated, anxious Skin exam: PRESENT: dry, warm Results Laboratory Results: 07/08/16 06:12 07/08/16 06:12 06/21/16 06/21/16 06/21/16 15:09 15:09 21:15 Creatine Kinase 280 H 328 H CK-MB (CK-2) 4.06 Troponin I < 0.012 06/21/16 06/22/16 06/22/16 21:15 03:31 03:31 Creatine Kinase 435 H CK-MB (CK-2) 4.31 4.91 H Troponin I < 0.012 < 0.012 07/04/16 21:36 Creatine Kinase CK-MB (CK-2) Troponin I < 0.012 Impressions: KUB X-Ray 06/25/16 00:00 IMPRESSION: Nasogastric catheter is present with tip overlying the lower abdominal midline, probable antral region of the stomach. Chest X-Ray 06/30/16 06:00 IMPRESSION: Interval worsening of small-moderate bibasilar opacity -effusion, right more than left. Lines and tubes. Shoulder X-Ray 07/06/16 00:00 IMPRESSION: NO ACUTE OSSEOUS ABNORMALITY OR HARDWARE COMPLICATION IDENTIFIED. IMPROVED AERATION RIGHT LUNG. Assessment & Plan - Diagnosis (1) Acute metabolic encephalopathy Is this a current diagnosis for this admission?: YesPlan: Slowly improved but perhaps not back to baseline. (2) Alcohol abuse Is this a current diagnosis for this admission?: YesPlan: Continue current support and Rx, including thiamine. (3) Delirium tremens Is this a current diagnosis for this admission?: NoPlan: Resolved. (4) Acute hypoxemic respiratory failure Is this a current diagnosis for this admission?: YesPlan: O2 supplementation as needed. (5) Pneumonia Qualifiers: Pneumonia type: due to other aerobic Gram-negative bacteria Is this a current diagnosis for this admission?: YesPlan: s/p Rx. No signs /sx of active PNA. (6) COPD (chronic obstructive pulmonary disease) Is this a current diagnosis for this admission?: Yes (7) Tobacco abuse Is this a current diagnosis for this admission?: YesPlan: Continue current Rx. (8) Status post total shoulder arthroplasty Qualifiers: Laterality: right Qualified Code(s): Z96.611 - Presence of right artificial shoulder joint Is this a current diagnosis for this admission?: YesPlan: Continue rehab therapies. (9) Urine retention Is this a current diagnosis for this admission?: YesPlan: On Flomax. He will have another trial of voiding at some point. UA, C&S was negative on 07/08.
[2016-07-11 04:49] LABS: ABSOLUTE BASOPHILS # (AUTO) 0.1 10^3/uL (0.0-0.2); ABSOLUTE EOSINOPHILS # (AUTO) 0.4 10^3/uL (0.0-0.6); ABSOLUTE LYMPHOCYTES (AUTO) 2.2 10^3/uL (0.5-4.7); ABSOLUTE MONOCYTES (AUTO) 0.6 10^3/uL (0.1-1.4); ABSOLUTE NEUT (AUTO) 1.8 10^3/uL (1.7-8.2); BASOPHILS % (AUTO) 1.3 % (0-2); EOSINOPHILS % (AUTO) 7.7 % (0-6); HEMATOCRIT 34.7 % (37.9-51.0); HEMOGLOBIN 11.7 g/dL (13.5-17.0); HGB HCT DIFFERENCE 0.4; LYMPHOCYTES % (AUTO) 43.8 % (13-45); MEAN CORPUSCULAR HEMOGLOBIN 31.8 pg (27.0-33.4); MEAN CORPUSCULAR HGB CONC 33.6 g/dL (32.0-36.0); MEAN CORPUSCULAR VOLUME 95 fl (80-97); MONOCYTES % (AUTO) 11.4 % (3-13); RED BLOOD COUNT 3.67 10^6/uL (4.35-5.55); RED CELL DISTRIBUTION WIDTH 13.9 % (11.5-14.0); SEGMENTED NEUTROPHILS % (AUTO) 35.8 % (42-78)
[2016-07-11 05:07] LABS: ANION GAP 10 (5-19); BLOOD UREA NITROGEN 15 mg/dL (7-20); CALCIUM 9.6 mg/dL (8.4-10.2); CARBON DIOXIDE 26 mmol/L (22-30); CHLORIDE 97 mmol/L (98-107); CREATININE RESULT 0.62 mg/dL (0.52-1.25); GLUCOSE 86 mg/dL (75-110)
[2016-07-11] MEDS: HEPARIN SOD (PORCINE) 5,000 UNIT/ML 1 ML SYRINGE SUBCUT SCH ×3 (05:58→22:54)
[2016-07-11] MEDS: METOPROLOL TARTRATE 25 MG TABLET PO SCH ×2 (09:22→22:53)
[2016-07-11] MEDS: GABAPENTIN 300 MG CAPSULE PO SCH (09:22)
[2016-07-11] MEDS: DULOXETINE HCL 30 MG CAPSULE.DR PO SCH (09:22)
[2016-07-11] MEDS: ATORVASTATIN CALCIUM 10 MG TABLET NG SCH (09:26)
[2016-07-11] MEDS: OXYCODONE-ACETAMINOPHEN 5-325 MG TABLET PO PRN ×3 (09:26→20:50)
[2016-07-11] MEDS: LISINOPRIL 10 MG TABLET PO SCH (09:26)
[2016-07-11] MEDS: ASPIRIN 81 MG TABLET, CHEWABLE PO SCH (09:26)
[2016-07-11] MEDS: THIAMINE HCL 100 MG TABLET PO SCH (09:27)
--- NOTE | 2016-07-11 13:01 | PDOC PROGRESS REPORT ---
Subjective Progress Note for:: 07/11/16 Subjective:: Patient resting in chair with sling on. No issues overnight. Able to have a conversation but patient still not baseline Physical Exam Vital Signs: Temp Pulse Resp BP Pulse Ox 36.6 C 93 18 111/56 L 99 07/11/16 07:50 07/11/16 07:50 07/11/16 07:50 07/11/16 07:50 07/11/16 07:50 Intake & Output 07/10/16 07/11/16 07/12/16 06:59 06:59 06:59 Intake Total 932 1277 Output Total 1700 0902 Balance -768 1048 Weight 59.9 kg 60 kg General appearance: PRESENT: no acute distress Adult Front & Back Image: 1 - Steri-Strips were removed from his right shoulder incision. Incision is healing very nicely. Range of motion passively I was able to elevate the extremity to about 110 before he has any pain. Abduction is about 80 before he is any pain. Neurovascular intact distally. Results Laboratory Results: 07/11/16 04:02 07/11/16 04:02 07/11/16 07/11/16 04:02 04:02 WBC 5.0 RBC 3.67 L Hgb 11.7 L Hct 34.7 L MCV 95 MCH 31.8 MCHC 33.6 RDW 13.9 Plt Count 261 Seg Neutrophils % 35.8 L Lymphocytes % 43.8 Monocytes % 11.4 Eosinophils % 7.7 H Basophils % 1.3 Absolute Neutrophils 1.8 Absolute Lymphocytes 2.2 Absolute Monocytes 0.6 Absolute Eosinophils 0.4 Absolute Basophils 0.1 Sodium 133.0 L Potassium 5.0 Chloride 97 L Carbon Dioxide 26 Anion Gap 10 BUN 15 Creatinine 0.62 Est GFR ( Amer) > 60 Est GFR (Non-Af Amer) > 60 Glucose 86 Calcium 9.6 06/21/16 06/21/16 06/21/16 15:09 15:09 21:15 Creatine Kinase 280 H 328 H CK-MB (CK-2) 4.06 Troponin I < 0.012 0506/22/16 06/22/16 21:15 03:31 03:31 Creatine Kinase 435 H CK-MB (CK-2) 4.31 4.91 H Troponin I < 0.012 < 0.012 07/04/16 21:36 Creatine Kinase CK-MB (CK-2) Troponin I < 0.012 Impressions: KUB X-Ray 06/25/16 00:00 IMPRESSION: Nasogastric catheter is present with tip overlying the lower abdominal midline, probable antral region of the stomach. Chest X-Ray 06/30/16 06:00 IMPRESSION: Interval worsening of small-moderate bibasilar opacity -effusion, right more than left. Lines and tubes. Shoulder X-Ray 07/06/16 00:00 IMPRESSION: NO ACUTE OSSEOUS ABNORMALITY OR HARDWARE COMPLICATION IDENTIFIED. IMPROVED AERATION RIGHT LUNG. Assessment & Plan - Plan Summary Plan Summary: 61-year-old gentleman status post right total shoulder arthroplasty. Wound is healing nicely. Continue wearing sling and continue doing physical therapy and passive range of motion exercises. Care per medicine for his encephalopathy and DT. Continue nonweightbearing right upper extremity.
[2016-07-11] MEDS: HALOPERIDOL 1 MG TABLET PO SCH ×2 (13:08→18:30)
--- NOTE | 2016-07-11 13:12 | PDOC PROGRESS REPORT ---
Subjective Progress Note for:: 07/11/16 Subjective:: Mr. Volodymyr Fu is a 61-year-old man with a history of alcohol abuse who underwent a right shoulder arthroplasty on 06/21/2016. We were consulted postoperatively because of hypotension. The patient went on to develop delirium tremens. He required ventilator management in the ICU for respiratory failure and sepsis. He was extubated on 06/28/2016. Afterwards he varied from somnolence to confusion. He developed auditory and visual hallucinations. He improved somewhat after Lyn catheter removal but then developed urinary retention requiring reinsertion of the Lyn. The patient has generally improved but is still confused at times. He is generally weak. Case management is involved. We were awaiting SNF placement, but PT has now cleared ptient for disch home with home health. Ortho f/u noted. Today the patient offers no new complaint. We will dc the lyn and document spontaneous voiding prior to disch. Physical Exam Vital Signs: Temp Pulse Resp BP Pulse Ox 97.9 F 93 18 111/56 L 99 07/11/16 07:50 07/11/16 07:50 07/11/16 07:50 07/11/16 07:50 07/11/16 07:50 Intake & Output 07/10/16 07/11/16 07/12/16 06:59 06:59 06:59 Intake Total 932 1277 Output Total 1700 2325 Balance -768 -1048 Weight 59.9 kg 60 kg Additional comments: General appearance: PRESENT: no acute distress, cooperative, well-developed, well-nourished Head exam: PRESENT: atraumatic, normocephalic Eye exam: PRESENT: EOMI. ABSENT: conjunctival injection, scleral icterus Mouth exam: PRESENT: dry mucosa, neck supple Neck exam: PRESENT: full ROM. ABSENT: tenderness Respiratory exam: PRESENT: clear to auscultation tone, unlabored. ABSENT: accessory muscle use Cardiovascular exam: PRESENT: RRR. ABSENT: systolic murmur Pulses: PRESENT: normal radial pulses, +1 pedal pulses bilateral GI/Abdominal exam: PRESENT: normal bowel sounds, soft. ABSENT: tenderness Extremities exam: ABSENT: calf tenderness, pedal edema Musculoskeletal exam: ABSENT: full ROM - limited at shoulders R>L; surgical scar is well approximated, steri strips beginning to fall off, skin is c/d/i without erythema or heat Neurological exam: PRESENT: alert, awake, oriented to person, reflexes normal. ABSENT: oriented to place, oriented to time, oriented to situation Psychiatric exam: PRESENT: appropriate affect, normal mood. ABSENT: agitated, anxious Skin exam: PRESENT: dry, warm Results Laboratory Results: 07/11/16 04:02 07/11/16 04:02 07/11/16 07/11/16 04:02 04:02 WBC 5.0 RBC 3.67 L Hgb 11.7 L Hct 34.7 L MCV 95 MCH 31.8 MCHC 33.6 RDW 13.9 Plt Count 261 Seg Neutrophils % 35.8 L Lymphocytes % 43.8 Monocytes % 11.4 Eosinophils % 7.7 H Basophils % 1.3 Absolute Neutrophils 1.8 Absolute Lymphocytes 2.2 Absolute Monocytes 0.6 Absolute Eosinophils 0.4 Absolute Basophils 0.1 Sodium 133.0 L Potassium 5.0 Chloride 97 L Carbon Dioxide 26 Anion Gap 10 BUN 15 Creatinine 0.62 Est GFR ( Amer) > 60 Est GFR (Non-Af Amer) > 60 Glucose 86 Calcium 9.6 06/21/16 06/21/16 06/21/16 15:09 15:09 21:15 Creatine Kinase 280 H 328 H CK-MB (CK-2) 4.06 Troponin I < 0.012 06/21/16 06/22/16 06/22/16 21:15 03:31 03:31 Creatine Kinase 435 H CK-MB (CK-2) 4.31 4.91 H Troponin I < 0.012 < 0.012 07/04/16 21:36 Creatine Kinase CK-MB (CK-2) Troponin I < 0.012 Impressions: KUB X-Ray 06/25/16 00:00 IMPRESSION: Nasogastric catheter is present with tip overlying the lower abdominal midline, probable antral region of the stomach. Chest X-Ray 06/30/16 06:00 IMPRESSION: Interval worsening of small-moderate bibasilar opacity -effusion, right more than left. Lines and tubes. Shoulder X-Ray 07/06/16 00:00 IMPRESSION: NO ACUTE OSSEOUS ABNORMALITY OR HARDWARE COMPLICATION IDENTIFIED. IMPROVED AERATION RIGHT LUNG. Assessment & Plan - Diagnosis (1) Acute metabolic encephalopathy Is this a current diagnosis for this admission?: YesPlan: Slowly improved and probably close to baseline. (2) Alcohol abuse Is this a current diagnosis for this admission?: YesPlan: Continue current support and Rx, including thiamine. (3) Delirium tremens Is this a current diagnosis for this admission?: NoPlan: Resolved. (4) Acute hypoxemic respiratory failure Is this a current diagnosis for this admission?: YesPlan: O2 supplementation as needed. (5) Pneumonia Qualifiers: Pneumonia type: due to other aerobic Gram-negative bacteria Is this a current diagnosis for this admission?: YesPlan: s/p Rx. No signs /sx of active PNA. (6) COPD (chronic obstructive pulmonary disease) Is this a current diagnosis for this admission?: Yes (7) Tobacco abuse Is this a current diagnosis for this admission?: Yes (8) Status post total shoulder arthroplasty Qualifiers: Laterality: right Qualified Code(s): Z96.611 - Presence of right artificial shoulder joint Is this a current diagnosis for this admission?: YesPlan: Ortho f/u noted. Continue rehab therapies. (9) Urine retention Is this a current diagnosis for this admission?: YesPlan: UA, C&S was negative on 07/08. On Flomax. Will dc lyn catheter and observe for spontaneous voiding prior to home discharge.
[2016-07-11] MEDS: TAMSULOSIN HCL 0.4 MG CAP.SR.24H PO SCH (18:30)
[2016-07-12] MEDS ORDERED: NORMAL SALINE 1000 ML 1,000 ML IV ONE (01:30)
[2016-07-12] MEDS: OXYCODONE-ACETAMINOPHEN 5-325 MG TABLET PO PRN ×3 (04:24→14:10)
[2016-07-12] MEDS: HEPARIN SOD (PORCINE) 5,000 UNIT/ML 1 ML SYRINGE SUBCUT SCH ×2 (06:07→13:40)
[2016-07-12 09:21] LABS: ABSOLUTE EOSINOPHILS # (AUTO) 0.3 10^3/uL (0.0-0.6); ABSOLUTE LYMPHOCYTES (AUTO) 1.7 10^3/uL (0.5-4.7); ABSOLUTE MONOCYTES (AUTO) 0.5 10^3/uL (0.1-1.4); ABSOLUTE NEUT (AUTO) 2.1 10^3/uL (1.7-8.2); EOSINOPHILS % (AUTO) 7.3 % (0-6); HEMOGLOBIN 10.5 g/dL (13.5-17.0); HGB HCT DIFFERENCE 0.5; LYMPHOCYTES % (AUTO) 36.4 % (13-45); MEAN CORPUSCULAR HEMOGLOBIN 31.7 pg (27.0-33.4); MEAN CORPUSCULAR HGB CONC 33.8 g/dL (32.0-36.0); MEAN CORPUSCULAR VOLUME 94 fl (80-97); RED CELL DISTRIBUTION WIDTH 14.2 % (11.5-14.0); SEGMENTED NEUTROPHILS % (AUTO) 44.3 % (42-78); WHITE BLOOD COUNT 4.7 10^3/uL (4.0-10.5)
[2016-07-12 09:34] LABS: ANION GAP 9 (5-19); BLOOD UREA NITROGEN 23 mg/dL (7-20); CALCIUM 9.3 mg/dL (8.4-10.2); CARBON DIOXIDE 24 mmol/L (22-30); CHLORIDE 98 mmol/L (98-107); CREATININE RESULT 1.21 mg/dL (0.52-1.25); GLUCOSE 92 mg/dL (75-110); POTASSIUM 4.8 mmol/L (3.6-5.0); SODIUM 130.5 mmol/L (137-145)
[2016-07-12] MEDS: METOPROLOL TARTRATE 25 MG TABLET PO SCH (10:06)
[2016-07-12] MEDS: ASPIRIN 81 MG TABLET, CHEWABLE PO SCH (10:06)
[2016-07-12] MEDS: THIAMINE HCL 100 MG TABLET PO SCH (10:07)
[2016-07-12] MEDS: GABAPENTIN 300 MG CAPSULE PO SCH (10:07)
[2016-07-12] MEDS: ATORVASTATIN CALCIUM 10 MG TABLET NG SCH (10:07)
[2016-07-12] MEDS: HALOPERIDOL 1 MG TABLET PO SCH (10:08)
[2016-07-12] MEDS: DULOXETINE HCL 30 MG CAPSULE.DR PO SCH (10:08)
[2016-07-12] MEDS: LISINOPRIL 10 MG TABLET PO SCH (10:09)
--- NOTE | 2016-07-12 12:46 | PDOC DISCHARGE SUMMARY ---
General - Admit/Disc Date/PCP Admission Date/Primary Care Provider: 06/21/16 05:16 RACHELL HENSON Discharge Date: 07/12/16 - Discharge Diagnosis (1) Acute metabolic encephalopathy Is this a current diagnosis for this admission?: YesSummary: This significantly improved with treatment of his multiple medical problems as listed below. (2) Alcohol abuse Is this a current diagnosis for this admission?: Yes (3) Delirium tremens Is this a current diagnosis for this admission?: NoSummary: The patient developed postoperative delirium tremens. It is treated in typical fashion and brought under control. His subsequent encephalopathy was complicated by other acute medical issues as listed below. His mental status gradually improved. At the time of discharge she is awake, alert, calm, conversant, and cooperative. (4) Acute hypoxemic respiratory failure Is this a current diagnosis for this admission?: YesSummary: The patient required supplemental oxygen during this hospitalization. Improved with the treatment of his pneumonia. (5) Pneumonia Is this a current diagnosis for this admission?: YesSummary: Patient completed a course of antibiotics for pneumonia/sepsis. The time of discharge he is breathing easily and has no chest congestion. (6) COPD (chronic obstructive pulmonary disease) Is this a current diagnosis for this admission?: YesSummary: The patient has significant COPD. He was an active smoker on admission. He has been advised to stop smoking. (7) Tobacco abuse Is this a current diagnosis for this admission?: Yes (8) Status post total shoulder arthroplasty Is this a current diagnosis for this admission?: YesSummary: The patient underwent a right shoulder arthroplasty on 06/21/2016. He was seen in follow-up by Dr. Tulio Kate. Patient is doing well from the orthopedic standpoint. He will require continued physical therapy and nonweightbearing to the right upper extremity has been advised. (9) Urine retention Is this a current diagnosis for this admission?: Yes - Additional Information Resuscitation Status: Full Code Discharge Diet: Regular Discharge Activity: Activity As Tolerated, Other - no weight bearing right upper extremity Home Medications: Atorvastatin Calcium [Lipitor 10 mg Tablet] 10 mg PO QAM 06/06/16 Duloxetine HCl [Cymbalta] 60 mg PO QAM 06/06/16 Gabapentin 300 mg PO Q8 06/06/16 Lisinopril [Prinivil 30 mg Tablet] 30 mg PO QAM 06/06/16 Metoprolol Tartrate [Lopressor 25 mg Tablet] 25 mg PO Q12 06/06/16 Multivitamin [Multivitamins] 1 each PO QAM 06/06/16 Omeprazole 20 mg PO QAM 06/06/16 Varenicline Tartrate [Chantix 1 mg Tablet] 1 mg PO BID 06/06/16 Aspirin [Aspirin 81 mg Chewable Tablet] 81 mg PO DAILY #0 tab.chew 07/12/16 Haloperidol [Haldol 1 mg Tablet] 1 mg PO BID #14 tablet 07/12/16 Oxycodone HCl/Acetaminophen [Percocet 5-325 mg Tablet] 1 tab PO Q3HP PRN #30 tablet 07/12/16 Tamsulosin HCl [Flomax 0.4 mg Cap.sr] 0.4 mg PO PCSUPPER #0 cap.sr.24h 07/12/16 Thiamine HCl [Thiamine 100 mg Tablet] 100 mg PO DAILY #0 tablet 07/12/16 History of Present Illness History of Present Illness: Mr. Volodymyr Fu is a 61-year-old man with a history of alcohol abuse who underwent a right shoulder arthroplasty on 06/21/2016. We were consulted postoperatively because of hypotension. Hospital Course Hospital Course: The patient went on to develop delirium tremens. He required ventilator management in the ICU for respiratory failure and sepsis. He was treated for pneumonia. He was extubated on 06/28/2016. Afterwards he varied from somnolence to confusion. He developed auditory and visual hallucinations. He improved somewhat after Seo catheter removal but then developed urinary retention requiring reinsertion of the Seo. The patient has generally improved but is still confused at times. He is generally weak. Case management was involved. We were awaiting SNF placement, but PT later cleared the patient for disch home with home health. Ortho f/u noted a satisfactory post operative course. Continued physical therapy and nonweightbearing to the right upper extremity was advised. The Seo catheter was discontinued on 07/11/2016 and the patient subsequently voided spontaneously. Today the patient offers no new complaint. He is ready for discharge home with home health services. Physical Exam Vital Signs: Temp Pulse Resp BP Pulse Ox 97.8 F 59 L 17 104/42 L 96 07/12/16 11:39 07/12/16 11:39 07/12/16 11:39 07/12/16 11:39 07/12/16 11:39 Intake & Output 07/11/16 07/12/16 07/13/16 06:59 06:59 06:59 Intake Total 1277 2806 Output Total 2320 780 Balance -1048 2026 Weight 60 kg Additional comments: General appearance: PRESENT: no acute distress, cooperative, well-developed, well-nourished Head exam: PRESENT: atraumatic, normocephalic Eye exam: PRESENT: EOMI. ABSENT: conjunctival injection, scleral icterus Mouth exam: PRESENT: dry mucosa, neck supple Neck exam: PRESENT: full ROM. ABSENT: tenderness Respiratory exam: PRESENT: clear to auscultation tone, unlabored. ABSENT: accessory muscle use Cardiovascular exam: PRESENT: RRR. ABSENT: systolic murmur Pulses: PRESENT: normal radial pulses, +1 pedal pulses bilateral GI/Abdominal exam: PRESENT: normal bowel sounds, soft. ABSENT: tenderness Extremities exam: ABSENT: calf tenderness, pedal edema Musculoskeletal exam: ABSENT: full ROM - limited at shoulders R>L; R shoulder surgical scar is well approximated, steri strips are off, skin is c/d/i without erythema or heat Neurological exam: PRESENT: alert, awake, oriented to person, reflexes normal. ABSENT: oriented to place, oriented to time, oriented to situation Psychiatric exam: PRESENT: appropriate affect, normal mood. ABSENT: agitated, anxious Skin exam: PRESENT: dry, warm Results Laboratory Results: 07/12/16 08:48 07/12/16 08:48 07/12/16 07/12/16 08:48 08:48 WBC 4.7 RBC 3.30 L Hgb 10.5 L Hct 31.0 L MCV 94 MCH 31.7 MCHC 33.8 RDW 14.2 H Plt Count 232 Seg Neutrophils % 44.3 Lymphocytes % 36.4 Monocytes % 11.0 Eosinophils % 7.3 H Basophils % 1.0 Absolute Neutrophils 2.1 Absolute Lymphocytes 1.7 Absolute Monocytes 0.5 Absolute Eosinophils 0.3 Absolute Basophils 0.0 Sodium 130.5 L Potassium 4.8 Chloride 98 Carbon Dioxide 24 Anion Gap 9 BUN 23 H Creatinine 1.21 Est GFR ( Amer) > 60 Est GFR (Non-Af Amer) > 60 Glucose 92 Calcium 9.3 06/21/16 06/21/1617 15:09 15:09 21:15 Creatine Kinase 280 H 328 H CK-MB (CK-2) 4.06 Troponin I < 0.012 06/21/16 06/22/16 06/22/16 21:15 03:31 03:31 Creatine Kinase 435 H CK-MB (CK-2) 4.31 4.91 H Troponin I < 0.012 < 0.012 07/04/16 21:36 Creatine Kinase CK-MB (CK-2) Troponin I < 0.012 Impressions: KUB X-Ray 06/25/16 00:00 IMPRESSION: Nasogastric catheter is present with tip overlying the lower abdominal midline, probable antral region of the stomach. Chest X-Ray 06/30/16 06:00 IMPRESSION: Interval worsening of small-moderate bibasilar opacity -effusion, right more than left. Lines and tubes. Shoulder X-Ray 07/06/16 00:00 IMPRESSION: NO ACUTE OSSEOUS ABNORMALITY OR HARDWARE COMPLICATION IDENTIFIED. IMPROVED AERATION RIGHT LUNG. Qualifiers PATEINT BEING DISCHARGED WITH ANY OF THE FOLLOWING DIAGNOSIS?: No Plan Discharge Plan: Patient is discharged home. He will receive home health services including nursing, physical therapy, occupational therapy, and home health aide. He will continue medications as documented on the discharge plan. He will see Dr. Draper in orthopedic follow-up and his primary physician in medical follow-up.
[2016-07-12 13:31] VITALS: BP 96/53
--- NOTE | 2016-07-24 11:07 | OPERATIVE REPORT E ---
Operative Report NAME: DORY MCGRAW : 1955 AGE: 61Y DATE OF SURGERY: 06/21/2016 ROOM: 307 PREOPERATIVE DIAGNOSIS: Right glenohumeral joint arthritis. POSTOPERATIVE DIAGNOSIS: Right glenohumeral joint arthritis. PROCEDURE: Right total shoulder arthroplasty. SURGEON: KEI FLORES M.D. ANESTHESIA: General. ESTIMATED BLOOD LOSS: 200 mL. COMPLICATIONS: None. DISPOSITION: Stable to the PACU. IMPLANT USED: [place] done on a total filter system. DESCRIPTION OF PROCEDURE: The patient was brought to the operating room, induced and intubated in a supine position. Once the tube was secured, the patient was placed in a beach-chair position where the right shoulder was prepped and draped in a normal sterile surgical fashion. Time out was done identifying the right shoulder as the correct site. Then, 0.25% Marcaine with epinephrine was injected in the anticipated deltopectoral incision. After time out and injection was done a tin plate used to do a longitudinal incision and retropectoral puncture was done to the shoulder. Electrocautery was used to obtain hemostasis. Retractors were placed and exposed the deltoid and pectoral fibers. I was able to identify the cephalic vein which was dissected and retracted laterally. Unfortunately there was a bleed that required ligation of cephalic vein which was done successfully. At this point I turned my attention to the chondroid tendon which was retracted medially and identified 3 sisters. The subscapularis tendon was then reflected and tagged. The broad head of biceps was identified and cut. This was tagged as well. The capsule was then released and the shoulder was dislocated. Rongeur was used to clean out the osteophytes. I was able then to place a canal finder starting at the humeral head and down into the shaft. I was able to sequentially ream until I had chatter and no motion. Then this reamer was left in and humeral head cutting block was then applied to it and secured with 2 pins. A saw was used to then do initial cut of the humeral head. I then pulled out the reamer intramedullary and then finished my humeral head cut. The head was then placed on the back table for measurement and sizing. The humerus was then retracted and glenoid retractors were applied to expose the actual glenoid. The remaining stump of the biceps was eliminated as well as the labrum to expose the entire face of the glenoid. Using Eye-[employer] glenoid guide, I was able to pin center of the glenoid and measure appropriately. I then used a reamer to ream the eburnated bone. Once I was satisfied with the reaming and leaving bone on the glenoid, I used appropriate size then to place the center hole and the 3 peripheral holes. I drilled to superior one and then the two inferior ones after that. I placed trial stem and glenoid with a trial head. Once I was satisfied with the amount of translation and the range of motion of the shoulder with no evidence of dislocation, I removed all the components and irrigated the wound and the shoulder. I then proceeded to the stem securing it without difficulty. I first placed then the glenoid which I used some cement in the back and pegs and held it until cement had hardened. Excess cement was removed with a Ewing elevator. Then the final head was applied and the shoulder was reduced. Of note, I drilled 3 holes in the lesser tuberosity prior to placement of the stem and placed FiberWire to allow repair of the subscapularis tendon. After the components had been placed and I used the FiberWire with its needle and secured the subscapularis tendon down to bone. Irrigation was used again and the retractors off the chondroid were taken away and then the deltopectoral interval was approximated with 0 Vicryl and the subcutaneous tissue with 2-0 Vicryl and karyna for skin. Acticoat was applied followed by an adhesive OpSite dressing. The drapes were removed and the patient was placed in a sling. Patient then was placed in a supine position where he was extubated successfully and sent to PACU in stable condition. DICTATING PHYSICIAN: Amado WATSON [id number] PHY#: [id number] ID: [id number] JOB#: [id number] ACCT: [id number] cc:KEI WEBB M.D. > MTDD
== END 2016-07-12 14:15 | disposition home health service (06) | DRG 483 ==
LOC: INOR 05:16 → 5 12:20 → ICU 06-23 14:00 → 3N 06-30 16:48
PROVIDERS: ADMIT Orthopaedic Surgery; ATTEND Orthopaedic Surgery
PROC: 0RRJ0JZ Replacement of Right Shoulder Joint with Synthetic Substitute, Open Approach (ICD-10-PCS; principal; 2016-06-21 07:30)
PROC: 06HM33Z Insertion of Infusion Device into Right Femoral Vein, Percutaneous Approach (ICD-10-PCS; 2016-06-23)
PROC: 5A1955Z Respiratory Ventilation, Greater than 96 Consecutive Hours (ICD-10-PCS; 2016-06-23)
PROC: 0BH17EZ Insertion of Endotracheal Airway into Trachea, Via Natural or Artificial Opening (ICD-10-PCS; 2016-06-23)
DX: M19.011 Primary osteoarthritis, right shoulder (principal); J96.01 Acute respiratory failure with hypoxia; A41.9 Sepsis, unspecified organism; J18.9 Pneumonia, unspecified organism; J44.1 Chronic obstructive pulmonary disease with (acute) exacerbation; F10.251 Alcohol dependence with alcohol-induced psychotic disorder with hallucinations; G31.2 Degeneration of nervous system due to alcohol; E83.42 Hypomagnesemia; D69.6 Thrombocytopenia, unspecified; B96.5 Pseudomonas (aeruginosa) (mallei) (pseudomallei) as the cause of diseases classified elsewhere; B96.89 Other specified bacterial agents as the cause of diseases classified elsewhere; R33.9 Retention of urine, unspecified; K21.9 Gastro-esophageal reflux disease without esophagitis; K70.30 Alcoholic cirrhosis of liver without ascites; K44.9 Diaphragmatic hernia without obstruction or gangrene; D64.9 Anemia, unspecified; I25.10 Atherosclerotic heart disease of native coronary artery without angina pectoris; I73.9 Peripheral vascular disease, unspecified; I10 Essential (primary) hypertension; I34.0 Nonrheumatic mitral (valve) insufficiency; B19.20 Unspecified viral hepatitis C without hepatic coma; F41.9 Anxiety disorder, unspecified; F17.210 Nicotine dependence, cigarettes, uncomplicated; Y90.9 Presence of alcohol in blood, level not specified
CPT/HCPCS: 01638; 36415; 71010; 74000; 80048; 80053; 81001; 82140; 82550; 82553; 82803; 82962; 83735; 84100; 84443; 84478; 84484; 85025; 85027; 85610; 85730; 86701; 86850; 86900; 86901; 87040; 87045; 87070; 87077; 87086; 87186; 87205; 87493; 88304; 88311; 89055; 93005; 93010; 94002; 94003; 94640; 94799; C9290; J0131; J0330; J0690; J0692; J0696; J1170; J1630; J1642; J1644; J1741; J2060; J2250; J2270; J2370; J2405; J2704; J3010; J3360; J3411; J3475; J3480; J3490; J7030; J7040; J7050; J7120; J7620; J7685; S0164

== ENCOUNTER 2016-10-14 19:05 | Emergency (ER) | payer MEDICAID ==
[2016-10-14] MEDS ORDERED: IBUPROFEN 600 MG TABLET PO ONE (21:16)
[2016-10-14] MEDS ORDERED: IBUPROFEN 600 MG TABLET ONE (21:19)
--- NOTE | 2016-10-14 21:27 | RADIOLOGY REPORT (SQ) ---
EXAM DESCRIPTION: CHEST PA/LAT COMPLETED DATE/TIME: 10/14/2016 9:03 pm REASON FOR STUDY: CHEST AND NECK PAIN COMPARISON: None. EXAM PARAMETERS: NUMBER OF VIEWS: two views TECHNIQUE: Digital Frontal and Lateral radiographic views of the chest acquired. RADIATION DOSE: NA LIMITATIONS: none FINDINGS: LUNGS AND PLEURA: No acute opacities, masses or pneumothorax. No pleural effusion. MEDIASTINUM AND HILAR STRUCTURES: Stable. HEART AND VASCULAR STRUCTURES: Heart normal size. No evidence for failure. BONES: No acute findings. HARDWARE: CABG. Bilateral shoulder arthroplasty. OTHER: No other significant finding. IMPRESSION: No acute findings. TECHNICAL DOCUMENTATION: JOB ID: [id number] [employer]- All Rights Reserved
--- NOTE | 2016-10-14 22:03 | RADIOLOGY REPORT (SQ) ---
EXAM DESCRIPTION: CT HEAD WITHOUT COMPLETED DATE/TIME: 10/14/2016 9:45 pm REASON FOR STUDY: NECK PAIN COMPARISON: 04/07/2010 TECHNIQUE: Axial images acquired through the brain without intravenous contrast. Images reviewed wi th bone, brain and subdural windows. Images stored on PACS. All CT scanners at this facility use dose modulation, iterative reconstruction, and/or weight based d osing when appropriate to reduce radiation dose to as low as reasonably achievable (ALARA). [facility]: Dose Right [facility]: CareDose [facility]: Dose Right [facility]: Teradose 4D [facility]: Smart [employer] RADIATION DOSE: Up-to-date CT equipment and radiation dose reduction techniques were employed. CTDIv ol: 64.6 mGy. DLP: 1163 mGy-cm. mGy. LIMITATIONS: None. FINDINGS: VENTRICLES: Prominent. CEREBRUM: No masses. No hemorrhage. No midline shift. Areas of low density in the white matter mos t likely due to chronic micro-vascular ischemic change. No evidence for acute infarction. CEREBELLUM: No masses. No hemorrhage. No alteration of density. No evidence for acute infarction. EXTRAAXIAL SPACES: Mild age-related involutional change. No fluid collections. No masses. ORBITS AND GLOBE: No intra- or extraconal masses. Normal contour of globe without masses. CALVARIUM: No fracture. PARANASAL SINUSES: No fluid or mucosal thickening. SOFT TISSUES: No mass or hematoma. OTHER: No other significant finding. IMPRESSION: MILD CHRONIC CHANGES OF ATROPHY AND MICROVASCULAR ISCHEMIA. NO ACUTE PROCESS. TECHNICAL DOCUMENTATION: JOB ID: [id number] Quality ID # [id number]: Final reports with documentation of one or more dose reduction techniques (e.g., Au tomated exposure control, adjustment of the mA and/or kV according to patient size, use of iterative reconstruction technique) 2010 [employer]- All Rights Reserved
--- NOTE | 2016-10-14 22:13 | RADIOLOGY REPORT (SQ) ---
EXAM DESCRIPTION: CT CERVICAL SPINE WITHOUT COMPLETED DATE/TIME: 10/14/2016 9:53 pm REASON FOR STUDY: NECK PAIN COMPARISON: None. TECHNIQUE: Axial images acquired through the cervical spine without intravenous contrast. Images re viewed with lung, soft tissue and bone windows. Reconstructed coronal and sagittal MPR images review ed. Images stored on PACS. All CT scanners at this facility use dose modulation, iterative reconstruction, and/or weight based d osing when appropriate to reduce radiation dose to as low as reasonably achievable (ALARA). [facility]: Dose Right [facility]: CareDose [facility]: Dose Right [facility]: Teradose 4D [facility]: Smart [employer] RADIATION DOSE: Up-to-date CT equipment and radiation dose reduction techniques were employed. CTDIv ol: 21.4 mGy. DLP: 424 mGy-cm. mGy. LIMITATIONS: None. FINDINGS: ALIGNMENT: Anatomic. MINERALIZATION: Normal. VERTEBRAL BODIES: No fractures or dislocation. DISCS: Multilevel disc space narrowing with osteophytes. FACETS, LATERAL MASSES, POSTERIOR ELEMENTS: Facet arthropathy. No fractures. No dislocation. No ac [place] findings. HARDWARE: None in the spine. VISUALIZED RIBS: No fractures. LUNG APICES AND SOFT TISSUES: No acute findings. OTHER: No other significant finding. IMPRESSION: CHRONIC DEGENERATIVE CHANGES. NO ACUTE FINDINGS. TECHNICAL DOCUMENTATION: JOB ID: [id number] Quality ID # [id number]: Final reports with documentation of one or more dose reduction techniques (e.g., Au tomated exposure control, adjustment of the mA and/or kV according to patient size, use of iterative reconstruction technique) 2010 [employer]- All Rights Reserved
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
[2016-10-14] MEDS ORDERED: MORPHINE SULFATE SR 15 MG TABLET PO ONE (22:46)
[2016-10-14 23:01] VITALS: BP 124/69
== END 2016-10-14 23:01 | disposition home or self-care (01) ==
LOC: ER 19:05
DX: S22.32XA Fracture of one rib, left side, initial encounter for closed fracture (principal); R07.89 Other chest pain; I25.10 Atherosclerotic heart disease of native coronary artery without angina pectoris; W19.XXXA Unspecified fall, initial encounter; Z87.891 Personal history of nicotine dependence
CPT/HCPCS: 99284; 71020; 70450; 72125; J3490 ×2

== ENCOUNTER 2016-10-29 14:11 | Emergency (ER) | payer MEDICAID ==
[2016-10-29] MEDS ORDERED: NORMAL SALINE 1000 ML 1,000 ML IV ONE (14:24)
--- NOTE | 2016-10-29 15:00 | RADIOLOGY REPORT (SQ) ---
EXAM DESCRIPTION: HIP RIGHT AP/LATERAL COMPLETED DATE/TIME: 10/29/2016 2:46 pm REASON FOR STUDY: pain COMPARISON: None. NUMBER OF VIEWS: Two views. TECHNIQUE: AP pelvis and additional frog-leg view of the right hip. LIMITATIONS: None. FINDINGS: MINERALIZATION: Osteopenia RIGHT HIP: Right hip arthroplasty with dislocation. LEFT HIP: Left hip arthroplasty. PUBIS AND ISCHIUM: No fracture. PELVIS: No fracture. SACRUM: No fracture or dislocation. No worrisome bone lesions. LOWER LUMBAR SPINE: No fracture or dislocation. No worrisome bone lesions. No significant disc disea se. SOFT TISSUES: No findings. OTHER: No other significant finding. IMPRESSION: Right hip arthroplasty with dislocation, possibly posterior. TECHNICAL DOCUMENTATION: JOB ID: [id number] [employer]- All Rights Reserved
[2016-10-29] MEDS ORDERED: MIDAZOLAM 2 MG/2 ML INJ IV ONE (15:35)
[2016-10-29] MEDS ORDERED: HYDROMORPHONE HCL INJ/PF 2 MG/ML AMPULE IV ONE (15:35)
[2016-10-29] MEDS ORDERED: KETAMINE HCL INJ 500 MG/10 ML VIAL IV ONE (15:36)
--- NOTE | 2016-10-29 17:42 | RADIOLOGY REPORT (SQ) ---
EXAM DESCRIPTION: HIP RIGHT AP/LATERAL COMPLETED DATE/TIME: 10/29/2016 5:24 pm REASON FOR STUDY: reduction COMPARISON: 10/29/2016 NUMBER OF VIEWS: Two views. TECHNIQUE: AP pelvis and additional frog-leg view of the right hip. LIMITATIONS: None. FINDINGS: The right hip dislocation has been reduced. IMPRESSION: Apparently successful reduction of the right hip dislocation. TECHNICAL DOCUMENTATION: JOB ID: [id number] [employer]- All Rights Reserved
--- NOTE | 2016-10-29 17:48 | ER Document Report ---
ED General - General Chief Complaint: Hip Pain Stated Complaint: HIP PAIN Time Seen by Provider: 10/29/16 14:19 TRAVEL OUTSIDE OF THE [place] IN LAST 30 DAYS: No - HPI Patient complains to provider of: Right hip pain Notes: Patient coming in for right hip pain. Patient has a history of bilateral hip replacements. Patient states normally the left hip will become dislocated however patient is working on his car stood up and felt the right hip dislocated. Patient denies any other trauma denies any other complaints. Patient states he has history of CABG and hypertension. Patient states lasts oral intake was night prior to arrival patient is in no obvious distress upon my evaluation. - Related Data Allergies/Adverse Reactions: No Known Allergies Allergy (Verified 10/29/16 18:03) Past Medical History - Social History Smoking Status: Current Every Day Smoker Chew tobacco use (# tins/day): Yes Frequency of alcohol use: Occasional Drug Abuse: Cocaine, Marijuana Family History: Malignancy, CAD Patient has suicidal ideation: No Patient has homicidal ideation: No - Past Medical History Cardiac Medical History: Reports: Hx Coronary Artery Disease, Hx Heart Attack - Pt unaware of this, in chart only, Hx Hypertension, Hx Peripheral Vascular Disease, Hx Heart Murmur Denies: Hx Atrial Fibrillation, Hx Congestive Heart Failure, Hx Hypercholesterolemia, Hx Pulmonary Embolism Pulmonary Medical History: Reports: Hx Sleep Apnea - Pt unaware of this, in chart only Denies: Hx Asthma, Hx Bronchitis, Hx COPD, Hx Pneumonia, Hx Respiratory Failure, Hx Tuberculosis Neurological Medical History: Denies: Hx Cerebrovascular Accident, Hx Seizures Endocrine Medical History: Renal/ Medical History: Denies: Hx Peritoneal Dialysis Malignancy Medical History: Denies Hx Leukemia, Denies Hx Lung Cancer GI Medical History: Reports: Hx Gastroesophageal Reflux Disease, Hx Hiatal Hernia, Hx Liver Failure - Hep C, Hx Ulcer. Denies: Hx Crohn's Disease, Hx Irritable Bowel Musculoskeltal Medical History: Reports Hx Arthritis, Denies Hx Fibromyalgia, Denies Hx Multiple Sclerosis, Denies Hx Muscular Dystrophy Psychiatric Medical History: Denies: Hx Bipolar Disorder, Hx Dementia, Hx Depression, Hx Post Traumatic Stress Disorder, Hx Schizophrenia Traumatic Medical History: Reports: Hx Fractures - Back, nose, Rt shoulder, Lt arm, Bilateral hands & feet Infectious Medical History: Denies: Hx HIV Past Surgical History: Reports: Hx Coronary Artery Bypass Graft - Triple Bypass , Hx Orthopedic Surgery - Left total shoulder, right total shoulder, bilateral hip replacement. Denies: Hx Appendectomy, Hx Bowel Surgery, Hx Cholecystectomy , Hx Colostomy, Hx Gastric Bypass Surgery, Hx Herniorrhaphy, Hx Pacemaker, Hx Tonsillectomy - Immunizations Hx Pneumococcal Vaccination: 12/20/15 Review of Systems - Review of Systems Constitutional: No symptoms reported EENT: No symptoms reported Cardiovascular: No symptoms reported Respiratory: No symptoms reported Gastrointestinal: No symptoms reported Genitourinary: No symptoms reported Male Genitourinary: No symptoms reported Musculoskeletal: Other - Hip dislocation Skin: No symptoms reported Hematologic/Lymphatic: No symptoms reported Neurological/Psychological: No symptoms reported Physical Exam - Vital signs Vitals: Temp Pulse Resp BP Pulse Ox 97.4 F 71 18 170/72 H 97 10/29/16 14:15 10/29/16 14:15 10/29/16 14:15 10/29/16 14:15 10/29/16 14:15 Interpretation: Normal - General General appearance: Appears well, Alert - HEENT Head: Normocephalic, Atraumatic Eyes: Normal Pupils: PERRL - Respiratory Respiratory status: No respiratory distress Chest status: Nontender Breath sounds: Normal Chest palpation: Normal - Cardiovascular Rhythm: Regular Heart sounds: Normal auscultation Murmur: No - Abdominal Inspection: Normal Distension: No distension Bowel sounds: Normal Tenderness: Nontender Organomegaly: No organomegaly - Back Back: Normal, Nontender - Extremities General upper extremity: Normal inspection, Nontender, Normal color, Normal ROM , Normal temperature General lower extremity: Normal color, Other - Patient has obvious deformity to the right hip with pulses intact distally. No: Normal inspection - Neurological Neuro grossly intact: Yes Cognition: Normal Orientation: AAOx4 Dilshad Coma Scale Eye Opening: Spontaneous [place] Coma Scale Verbal: Oriented [place] Coma Scale Motor: Obeys Commands Dilshad Coma Scale Total: 15 Speech: Normal Motor strength normal: LUE, RUE, LLE, RLE Sensory: Normal - Psychological Associated symptoms: Normal affect, Normal mood - Skin Skin Temperature: Warm Skin Moisture: Dry Skin Color: Normal Course - Re-evaluation Re-evalutation: 10/29/16 18:55 Patient underwent a conscious sedation with reduction of the hip x-ray showed reduction of the hip was successful once patient is more arousable will be discharged home. - Vital Signs Vital signs: Temp Pulse Resp BP Pulse Ox 97.6 F 97 16 143/87 H 99 10/29/16 18:44 10/29/16 17:23 10/29/16 18:31 10/29/16 18:31 10/29/16 18:31 Procedures - Conscious Sedation Conscious sedation Time started: 17:00 Time completed: 17:23 Consent obtained: Yes Indication: Hip reduction Last meal: Night prior to arrival Pt with a mild systemic disease.: P2. - ASA Classification. Airway Evaluation: Normal anatomy Mallampati Classification: Class 2 Used during procedure: Suction available, IV access obtained, Pulse ox on pt., awake overnight monitor on pt. Medications administered: Versed, Ketamine Reversal agents: None I personally performed/intraservice time: Sedation, Procedure, 30 min or less Complications: No - Joint Reduction/Fracture Care Right Hip Consent obtained: Yes Conscious sedation: Yes Pre-procedure NV exam: Yes Fracture: Other Manipulation comment: Gentle traction Post-procedure NV exam: Yes Post-reduction x-ray: Joint reduced Reduction attempts: 1 Complications: No Discharge - Discharge Clinical Impression: Hip dislocation, right Qualifiers: Encounter type: initial encounter Qualified Code(s): S73.004A - Unspecified dislocation of right hip, initial encounter Condition: Good Disposition: HOME, SELF-CARE Instructions: Dislocated Artificial Hip ([facility]), Post Sedation Instructions ([facility]) Additional Instructions: X-ray shows that her hip is back in place. Please follow-up with the orthopedic physician return to ER symptoms worsen Referrals: RACHELL HENSON [Primary Care Provider] - Follow up as needed PIPER CARRIZALES MD [ACTIVE STAFF] - Follow up as needed
[2016-10-29 20:48] VITALS: BP 135/91
== END 2016-10-29 21:00 | disposition home or self-care (01) ==
LOC: ER 14:11
PROC: 0SS9XZZ Reposition Right Hip Joint, External Approach (ICD-10-PCS; principal; 2016-10-29)
DX: S73.004A Unspecified dislocation of right hip, initial encounter (principal); M25.551 Pain in right hip; Z96.643 Presence of artificial hip joint, bilateral; F17.200 Nicotine dependence, unspecified, uncomplicated; I10 Essential (primary) hypertension; X58.XXXA Exposure to other specified factors, initial encounter
CPT/HCPCS: 99284; 99152; 73502; 27265; J2250; J3490; J1170; J7030

== ENCOUNTER 2017-06-28 19:33 | Emergency (ER) | payer MEDICAID ==
[2017-06-28] MEDS ORDERED: FENTANYL CITRATE INJ/PF 100 MCG/2 ML AMPUL IV PRN (19:40)
[2017-06-28] MEDS ORDERED: ONDANSETRON HCL INJ/PF 4 MG/2 ML SDV IV ONE (19:40)
--- NOTE | 2017-06-28 19:45 | ER Document Report ---
ED General - General Stated Complaint: RIGHT HIP PAIN Time Seen by Provider: 06/28/17 19:39 Notes: Patient is a 62-year-old male with a history of liver cirrhosis, chronic alcohol abuse who presents with right hip pain. The patient states that he was walking, turned his leg abnormally and felt his hip pop out of place. He states that this is exactly the same as when his hip dislocated approximately 6 months ago. He notes a dull, constant, throbbing pain to the right hip since onset of the injury. Any movement of the hip worsens the pain. He states the fentanyl provided by EMS has improved the pain. He denies any fall or additional trauma today. He does arrive by EMS. TRAVEL OUTSIDE OF THE [place] IN LAST 30 DAYS: No - HPI Onset: Just prior to arrival Onset/Duration: Sudden Quality of pain: Achy Pain Level: 2 Associated symptoms: None Exacerbated by: Movement Relieved by: Denies Similar symptoms previously: Yes Recently seen / treated by doctor: No - Related Data Allergies/Adverse Reactions: No Known Allergies Allergy (Verified 10/29/16 18:03) Past Medical History - General Information source: Patient - Social History Smoking Status: Current Every Day Smoker Frequency of alcohol use: Occasional Drug Abuse: None Lives with: Alone Family History: Malignancy, CAD - Past Medical History Cardiac Medical History: Reports: Hx Coronary Artery Disease, Hx Heart Attack - Pt unaware of this, in chart only, Hx Hypertension, Hx Peripheral Vascular Disease, Hx Heart Murmur Denies: Hx Atrial Fibrillation, Hx Congestive Heart Failure, Hx Hypercholesterolemia, Hx Pulmonary Embolism Pulmonary Medical History: Reports: Hx Sleep Apnea - Pt unaware of this, in chart only Denies: Hx Asthma, Hx Bronchitis, Hx COPD, Hx Pneumonia, Hx Respiratory Failure, Hx Tuberculosis Neurological Medical History: Denies: Hx Cerebrovascular Accident, Hx Seizures Endocrine Medical History: Renal/ Medical History: Denies: Hx Peritoneal Dialysis Malignancy Medical History: Denies Hx Leukemia, Denies Hx Lung Cancer GI Medical History: Reports: Hx Gastroesophageal Reflux Disease, Hx Hiatal Hernia, Hx Liver Failure - Hep C, Hx Ulcer. Denies: Hx Crohn's Disease, Hx Irritable Bowel, Hx Pancreatitis Musculoskeltal Medical History: Reports Hx Arthritis, Denies Hx Fibromyalgia, Denies Hx Multiple Sclerosis, Denies Hx Muscular Dystrophy Psychiatric Medical History: Denies: Hx Bipolar Disorder, Hx Dementia, Hx Depression, Hx Post Traumatic Stress Disorder, Hx Schizophrenia Traumatic Medical History: Reports: Hx Fractures - Back, nose, Rt shoulder, Lt arm, Bilateral hands & feet Infectious Medical History: Denies: Hx HIV Past Surgical History: Reports: Hx Coronary Artery Bypass Graft - Triple Bypass , Hx Orthopedic Surgery - Left total shoulder, right total shoulder, bilateral hip replacement. Denies: Hx Appendectomy, Hx Bowel Surgery, Hx Cholecystectomy , Hx Colostomy, Hx Gastric Bypass Surgery, Hx Herniorrhaphy, Hx Pacemaker, Hx Tonsillectomy - Immunizations Hx Pneumococcal Vaccination: 12/20/15 Review of Systems - Review of Systems Notes: Constitutional: Negative for fever. HENT: Negative for sore throat. Eyes: Negative for visual changes. Cardiovascular: Negative for chest pain. Respiratory: Negative for shortness of breath. Gastrointestinal: Negative for abdominal pain, vomiting or diarrhea. Genitourinary: Negative for dysuria. Musculoskeletal: Positive for right hip pain Skin: Negative for rash. Neurological: Negative for headaches, weakness or numbness. 10 point ROS negative except as marked above and in HPI. Physical Exam - Vital signs Vitals: BP 170/95 H 06/28/17 19:39 Interpretation: Normal Notes: PHYSICAL EXAMINATION: GENERAL: Appears to be moderately uncomfortable but in no acute distress. HEAD: Atraumatic, normocephalic. EYES: Pupils equal round and reactive to light, extraocular movements intact, sclera anicteric, conjunctiva are normal. ENT: nares patent, oropharynx clear without exudates. Moderately dry mucous membranes. NECK: Normal range of motion, supple without lymphadenopathy LUNGS: Breath sounds clear to auscultation bilaterally and equal. No wheezes rales or rhonchi. HEART: Regular rate and rhythm without murmurs ABDOMEN: Soft, nontender, normoactive bowel sounds. No guarding, no rebound. No masses appreciated. EXTREMITIES: There is moderate shortening and internal rotation of the right leg with a palpable femoral head NEUROLOGICAL: No focal neurological deficits. Moves all extremities spontaneously and on command. PSYCH: Normal mood, normal affect. SKIN: Warm, Dry, mildly icteric skin Course - Re-evaluation Re-evalutation: 06/28/17 19:46 Patient is a 62-year-old male who presents with right hip pain and apparent hip dislocation on examination with slight shortening and internal rotation of the lower extremity. The femoral head is palpably displaced. Will obtain a right hip x-ray to confirm. This did occur when the patient was walking states that he turned his leg abnormally and he has had one prior dislocation to this hip in the past. If diagnostic imaging is confirmed laboratory of my suspicion that the patient has a dislocation will proceed with procedural sedation and reduction. No indication for labs or further imaging as the patient did not sustain a fall or any additional trauma during today's events and denies complaints any other area of his body. - Vital Signs Vital signs: Temp Pulse Resp BP Pulse Ox 98.3 F 76 19 138/70 H 97 06/28/17 19:45 06/28/17 21:47 06/28/17 21:47 06/28/17 21:47 06/28/17 21:47 - Diagnostic Test Radiology reviewed: Image reviewed, Reports reviewed Radiology results interpreted by me: 06/28/17 20:54 Right hip: Apparent dislocation of the right prosthetic hip Procedures - Conscious Sedation Conscious sedation Time started: 22:00 Time completed: 22:15 Consent obtained: Yes Indication: Right posterior hip reduction Pt with a mild systemic disease.: P2. - ASA Classification. Airway Evaluation: Normal anatomy Mallampati Classification: Class 2 Used during procedure: Suction available, IV access obtained, Pulse ox on pt., child monitor on pt. Medications administered: Diprivan Reversal agents: None I personally performed/intraservice time: Sedation, Procedure, 30 min or less Complications: No - Joint Reduction/Fracture Care Right Hip Time completed: 22:00 Consent obtained: Yes Conscious sedation: Yes Pre-procedure NV exam: Yes Fracture: Other - Right posterior hip dislocation Manipulation comment: Anterior traction, direct palpation of the the femoral head Post-procedure NV exam: Yes Post-reduction x-ray: Joint reduced Reduction attempts: 1 Complications: No Discharge - Discharge Clinical Impression: Posterior dislocation of right hip Qualifiers: Encounter type: initial encounter Qualified Code(s): S73.014A - Posterior dislocation of right hip, initial encounter Condition: Stable Disposition: HOME, SELF-CARE Additional Instructions: Please follow-up with your orthopedic doctor regarding your recurrent hip dislocations. Return for any additional concerns he may have including increasing pain to the right hip, difficulty walking, or any other symptoms that are worrisome to you Referrals: LOCALMD,NO [Primary Care Provider] - Follow up as needed
--- NOTE | 2017-06-28 21:10 | RADIOLOGY REPORT (SQ) ---
EXAM DESCRIPTION: HIP RIGHT AP/LATERAL COMPLETED DATE/TIME: 06/28/2017 8:56 pm REASON FOR STUDY: right hip dislocation COMPARISON: 10/29/2016 NUMBER OF VIEWS: Two views. TECHNIQUE: AP pelvis and additional frog-leg view of the right hip. LIMITATIONS: None. FINDINGS: MINERALIZATION: Osteopenia. RIGHT HIP: Status post total hip arthroplasty with posterior dislocation of the femoral component rel ative to the acetabular component. No acute fracture. LEFT HIP: Status post total hip arthroplasty with prominent heterotopic bone formation, unchanged. N o fracture. PUBIS AND ISCHIUM: No fracture. PELVIS: No fracture. SACRUM: No fracture or dislocation. No worrisome bone lesions. LOWER LUMBAR SPINE: No fracture or dislocation. No worrisome bone lesions. No significant disc disea se. SOFT TISSUES: Right iliac stent, unchanged. OTHER: No other significant finding. IMPRESSION: Status post right total hip arthroplasty with posterior dislocation. TECHNICAL DOCUMENTATION: JOB ID: [id number] [employer]- All Rights Reserved Reading location - IP/workstation name: [email or web address]
[2017-06-28] MEDS ORDERED: PROPOFOL INJ 200 MG/20 ML VIAL IV ONE ×2 (21:15→21:31)
--- NOTE | 2017-06-28 22:19 | RADIOLOGY REPORT (SQ) ---
EXAM DESCRIPTION: PELVIS AP COMPLETED DATE/TIME: 06/28/2017 9:54 pm REASON FOR STUDY: post-reduction COMPARISON: 06/11/2011 and 06/28/2017 NUMBER OF VIEWS: One view TECHNIQUE: AP Pelvis LIMITATIONS: None. FINDINGS: MINERALIZATION: Normal. HIPS: The previously described right hip dislocation appears to be reduced. Bilateral total hip arth roplasties. Left hip heterotopic bone. PELVIS AND SACRUM: No acute fracture or dislocation. No worrisome bone lesions. PUBIS AND ISCHIUM: No acute fracture. LOWER LUMBAR SPINE: No significant findings as visualized. SOFT TISSUES: Right iliac vascular stent. OTHER: No other significant finding. IMPRESSION: Status post apparent closed reduction of a right total hip arthroplasty with posterior d islocation. No evidence of complication. TECHNICAL DOCUMENTATION: JOB ID: [id number] [employer]- All Rights Reserved Reading location - IP/workstation name: [email or web address]
[2017-06-29 01:27] VITALS: BP 140/83
== END 2017-06-28 23:45 | disposition home or self-care (01) ==
LOC: ER 19:33
DX: M24.451 Recurrent dislocation, right hip (principal); M25.511 Pain in right shoulder; I25.10 Atherosclerotic heart disease of native coronary artery without angina pectoris; I10 Essential (primary) hypertension
CPT/HCPCS: 99284; 99152; 96374; 73502; 72170; 27265; J3010; J2405; J2704

== ENCOUNTER 2017-07-22 20:41 | Emergency (ER) | payer MEDICAID ==
[2017-07-22] MEDS ORDERED: HYDROCODONE/ACETAMINOPHEN 5-325 MG TABLET PO ONE (20:44)
[2017-07-22] MEDS ORDERED: PROPOFOL INJ 200 MG/20 ML VIAL IV ONE (20:44)
--- NOTE | 2017-07-22 20:51 | ER Document Report ---
ED General - General Stated Complaint: RIGHT HIP PAIN Time Seen by Provider: 07/22/17 20:44 Mode of Arrival: Medic Information source: Patient, Emergency Med Personnel, [facility] Records Notes: 62-year-old male presents with complaints of right hip pain dislocation. Patient is a chronic alcoholic history of liver cirrhosis had multiple previous hip dislocations 17 on the left 2 on the right patient notes that he was just standing bent over and felt a pop out patient denies any other injuries patient is requesting pain medication prior to imaging Patient did drink 2 40 ounce beers tonight TRAVEL OUTSIDE OF THE [place] IN LAST 30 DAYS: No - HPI Onset: Just prior to arrival Onset/Duration: Sudden Quality of pain: Sharp Severity: Moderate Pain Level: 3 Associated symptoms: Body/muscle aches Exacerbated by: Movement Relieved by: Denies Similar symptoms previously: Yes Recently seen / treated by doctor: Yes - Related Data Allergies/Adverse Reactions: No Known Allergies Allergy (Verified 07/22/17 21:08) Past Medical History - Social History Smoking Status: Current Every Day Smoker Cigarette use (# per day): Yes Chew tobacco use (# tins/day): No Smoking Education Provided: No Frequency of alcohol use: Heavy Family History: Malignancy, CAD - Past Medical History Cardiac Medical History: Reports: Hx Coronary Artery Disease, Hx Heart Attack - Pt unaware of this, in chart only, Hx Hypertension, Hx Peripheral Vascular Disease, Hx Heart Murmur Denies: Hx Atrial Fibrillation, Hx Congestive Heart Failure, Hx Hypercholesterolemia, Hx Pulmonary Embolism Pulmonary Medical History: Reports: Hx Sleep Apnea - Pt unaware of this, in chart only Denies: Hx Asthma, Hx Bronchitis, Hx COPD, Hx Pneumonia, Hx Respiratory Failure, Hx Tuberculosis Neurological Medical History: Denies: Hx Cerebrovascular Accident, Hx Seizures Endocrine Medical History: Renal/ Medical History: Denies: Hx Peritoneal Dialysis Malignancy Medical History: Denies Hx Leukemia, Denies Hx Lung Cancer GI Medical History: Reports: Hx Gastroesophageal Reflux Disease, Hx Hiatal Hernia, Hx Liver Failure - Hep C, Hx Ulcer. Denies: Hx Crohn's Disease, Hx Irritable Bowel, Hx Pancreatitis Musculoskeltal Medical History: Reports Hx Arthritis, Denies Hx Fibromyalgia, Denies Hx Multiple Sclerosis, Denies Hx Muscular Dystrophy Psychiatric Medical History: Denies: Hx Bipolar Disorder, Hx Dementia, Hx Depression, Hx Post Traumatic Stress Disorder, Hx Schizophrenia Traumatic Medical History: Reports: Hx Fractures - Back, nose, Rt shoulder, Lt arm, Bilateral hands & feet Infectious Medical History: Denies: Hx HIV Past Surgical History: Reports: Hx Coronary Artery Bypass Graft - Triple Bypass , Hx Orthopedic Surgery - Left total shoulder, right total shoulder, bilateral hip replacement. Denies: Hx Appendectomy, Hx Bowel Surgery, Hx Cholecystectomy , Hx Colostomy, Hx Gastric Bypass Surgery, Hx Herniorrhaphy, Hx Pacemaker, Hx Tonsillectomy - Immunizations Hx Pneumococcal Vaccination: 12/20/15 Review of Systems - Review of Systems Notes: REVIEW OF SYSTEMS: CONSTITUTIONAL : Denies fever, chills, or sweats. Denies recent illness. EENT: Denies eye, ear, throat, or mouth pain or symptoms. Denies nasal or sinus congestion or discharge. Denies throat, tongue, or mouth swelling or difficulty swallowing. CARDIOVASCULAR: Denies chest pain. Denies palpitations or racing or irregular heart beat. Denies ankle edema. RESPIRATORY: Denies cough, cold, or chest congestion. Denies shortness of breath, difficulty breathing, or wheezing. GASTROINTESTINAL: Denies abdominal pain or distention. Denies nausea, vomiting , or diarrhea. Denies blood in vomitus, stools, or per rectum. Denies black, tarry stools. Denies constipation. GENITOURINARY: Denies difficulty urinating, painful urination, burning, frequency, blood in urine, or discharge. MUSCULOSKELETAL: right hip pain SKIN: Denies rash, lesions or sores. HEMATOLOGIC : Denies easy bruising or bleeding. LYMPHATIC: Denies swollen, enlarged glands. NEUROLOGICAL: Denies confusion or altered mental status. Denies passing out or loss of consciousness. Denies dizziness or lightheadedness. Denies headache. Denies weakness or paralysis or loss of use of either side. Denies problems with gait or speech. Denies sensory loss, numbness, or tingling. Denies seizures. PSYCHIATRIC: Denies anxiety or stress. Denies depression, suicidal ideation, or homicidal ideation. ALL OTHER SYSTEMS REVIEWED AND NEGATIVE. Dictation was performed using [employer] recognition software PHYSICAL EXAMINATION: GENERAL: Well-appearing, well-nourished and in no acute distress. HEAD: Atraumatic, normocephalic. EYES: Pupils equal round and reactive to light, extraocular movements intact, sclera anicteric, conjunctiva are normal. ENT: Nares patent, oropharynx clear without exudates. Moist mucous membranes. NECK: Normal range of motion, supple without lymphadenopathy LUNGS: Breath sounds clear to auscultation bilaterally and equal. No wheezes rales or rhonchi. HEART: Regular rate and rhythm without murmurs ABDOMEN: Soft, nontender, nondistended abdomen. No guarding, no rebound. No masses appreciated. Musculoskeletal: shortened right lower extremity externally rotated NEUROLOGICAL: Cranial nerves grossly intact. Normal speech, normal gait. Normal sensory, motor exams PSYCH: Normal mood, normal affect. SKIN: Warm, Dry, normal turgor, no rashes or lesions noted. Physical Exam - Vital signs Vitals: Resp Pulse Ox 22 H 99 07/22/17 21:22 07/22/17 21:22 Course - Re-evaluation Re-evalutation: 07/22/17 22:19 Patient's hip was easily reduced with no complications, he was watched by myself and analytical tech and patient awoke with no difficulties he is otherwise stable but given that this is now the third time his hip has been dislocated he must follow-up with orthopedics for further evaluation and care patient is also been instructed to decrease his alcohol abuse After performing a Medical Screening Examination, I estimate there is LOW risk for EXPANDING OR RUPTURED ABDOMINAL AORTIC ANEURYSM, CAUDA EQUINA SYNDROME, EPIDURAL MASS LESION, or HERNIATED DISK CAUSING SEVERE SPINAL STENOSIS, thus I consider the discharge disposition reasonable. I have reevaluated this patient multiple times and no significant life threatening changes are noted. The patient and I have discussed the diagnosis and risks, and we agree with discharging home and close follow-up. We also discussed returning to the Emergency Department immediately if new or worsening symptoms occur with the understanding that symptoms and presentations can change. We have discussed the symptoms which are most concerning (e.g., saddle anesthesia, urinary or bowel incontinence or retention, changing or worsening pain) that necessitate immediate return. - Vital Signs Vital signs: Temp Pulse Resp BP Pulse Ox 19 121/74 99 07/22/17 22:13 07/22/17 22:13 07/22/17 22:13 - Diagnostic Test Radiology reviewed: Image reviewed - Dislocated right hip on x-ray 2 view, Reports reviewed Procedures - Conscious Sedation Conscious sedation Time started: 19:58 Time completed: 20:05 Consent obtained: Yes - Both verbal and written consent Indication: Hip reduction Prior complications: Procedural sedation Pt with a mild systemic disease.: P2. - ASA Classification. Airway Evaluation: Normal anatomy Mallampati Classification: Class 2 Used during procedure: Suction available, IV access obtained, Pulse ox on pt., surveillance monitor on pt. Medications administered: Diprivan Reversal agents: None I personally performed/intraservice time: Sedation, Procedure, 30 min or less Complications: No - Joint Reduction/Fracture Care Right Hip Time completed: 20:05 Consent obtained: Yes Conscious sedation: Yes Pre-procedure NV exam: Yes Fracture: Other Post-procedure NV exam: Yes Post-reduction x-ray: Joint reduced Reduction attempts: 1 Complications: No Discharge - Discharge Clinical Impression: Alcohol abuse Hip dislocation, right Qualifiers: Encounter type: initial encounter Qualified Code(s): S73.004A - Unspecified dislocation of right hip, initial encounter Condition: Stable Disposition: HOME, SELF-CARE Instructions: Dislocated Artificial Hip ([facility]) Referrals: BENTLEY CARNES MD [Primary Care Provider] - Follow up as needed PIPER CARRIZALES MD [ACTIVE STAFF] - Follow up tomorrow
--- NOTE | 2017-07-22 21:26 | RADIOLOGY REPORT (SQ) ---
EXAM DESCRIPTION: HIP RIGHT AP/LATERAL COMPLETED DATE/TIME: 07/22/2017 9:17 pm REASON FOR STUDY: hip dislocation COMPARISON: 06/28/2017 NUMBER OF VIEWS: Two views. TECHNIQUE: AP pelvis and additional frog-leg view of the right hip. LIMITATIONS: None. FINDINGS: MINERALIZATION: Osteopenia. RIGHT HIP: Status post total hip arthroplasty with dislocation of prosthetic head. LEFT HIP: Status post total hip arthroplasty with cerclage wires in place. No hardware complication. PUBIS AND ISCHIUM: No acute fracture. PELVIS: No acute fracture. SACRUM: No fracture or dislocation. No worrisome bone lesions. LOWER LUMBAR SPINE: Poorly visualized. SOFT TISSUES: No findings. OTHER: No other significant finding. IMPRESSION: DISLOCATED PROSTHETIC RIGHT HIP. NO ADDITIONAL SIGNIFICANT CHANGE COMPARED TO PRIOR STUDY. TECHNICAL DOCUMENTATION: JOB ID: [id number] [employer]- All Rights Reserved Reading location - IP/workstation name: [email or web address]
--- NOTE | 2017-07-22 22:29 | RADIOLOGY REPORT (SQ) ---
EXAM DESCRIPTION: PELVIS AP COMPLETED DATE/TIME: 07/22/2017 10:21 pm REASON FOR STUDY: post reduction COMPARISON: 07/22/2017 NUMBER OF VIEWS: One view TECHNIQUE: AP Pelvis LIMITATIONS: None. FINDINGS: MINERALIZATION: Normal. HIPS: Bilateral hip arthroplasties with interval relocation of the right hip. No new hardware compli cation or fracture. PELVIS AND SACRUM: No acute fracture or dislocation. No worrisome bone lesions. PUBIS AND ISCHIUM: No acute fracture. LOWER LUMBAR SPINE: No significant findings as visualized. SOFT TISSUES: No findings. OTHER: No other significant finding. IMPRESSION: SUCCESSFUL REDUCTION OF RIGHT HIP DISLOCATION ABOVE. TECHNICAL DOCUMENTATION: JOB ID: [id number] [employer]- All Rights Reserved Reading location - IP/workstation name: [email or web address]
[2017-07-22 23:29] VITALS: BP 113/57
== END 2017-07-22 23:31 | disposition home or self-care (01) ==
LOC: ER 20:41
DX: S73.004A Unspecified dislocation of right hip, initial encounter (principal); F10.10 Alcohol abuse, uncomplicated; M25.551 Pain in right hip; M79.1 Myalgia; X58.XXXA Exposure to other specified factors, initial encounter; F17.210 Nicotine dependence, cigarettes, uncomplicated; I25.10 Atherosclerotic heart disease of native coronary artery without angina pectoris; I25.2 Old myocardial infarction; I10 Essential (primary) hypertension
CPT/HCPCS: 99283; 99152; 73502; 72170; J2704; 36415

== ENCOUNTER 2018-01-21 15:05 | Day surgery (SDC) | payer MEDICAID ==
[2018-01-21] MEDS ORDERED: DIPHENHYDRAMINE HCL 50 MG/ML VIAL ONE (15:08)
[2018-01-21] MEDS ORDERED: EPINEPHRINE INJ 1 MG/10 ML DISP.SYRIN ONE (15:08)
[2018-01-21] MEDS ORDERED: MIDAZOLAM 2 MG/2 ML INJ ONE (15:08)
[2018-01-21] MEDS ORDERED: FENTANYL CITRATE INJ/PF 100 MCG/2 ML AMPUL ONE (15:08)
[2018-01-21] MEDS ORDERED: NALOXONE HCL INJ/PF 0.4 MG/1 ML SDV ONE (15:08)
[2018-01-21] MEDS ORDERED: GLUCAGON,HUMAN RECOMB 1 MG INJ ONE (15:08)
[2018-01-21] MEDS ORDERED: FLUMAZENIL INJ 0.5 MG/5 ML VIAL ONE (15:08)
[2018-01-21] MEDS ORDERED: ONDANSETRON HCL INJ/PF 4 MG/2 ML SDV ONE (15:08)
--- NOTE | 2018-01-21 16:09 | Operative Report ---
Operative Report DATE OF SURGERY: 01/21/18 Operative Report: Pre-op diagnosis: Abnormal esophagus during transesophageal echocardiogram Post-op diagnosis: 1. Antral gastritis 2.? Esophageal candidiasis Surgery: Esophagogastroduodenoscopy with biopsy Medications: Versed 2mg Fentanyl 75mcg IV push Tissue removed: Antral and gastric body biopsy for pathology Procedure: After informed consent obtained from patient, the throat was sprayed with Hurricane and conscious sedation was achieved. The upper endoscope was inserted into the esophagus under direct vision and advanced into the stomach. The duodenum was entered and examined to the second part. Endoscope was then slowly pulled out of the patient as the mucosa was examined into details. Patient tolerated procedure well. Findings Esophagus: There were a few white exudates noted in the mid and proximal esophagus and biopsy was taken. No evidence of stricture identified. Antrum: Moderate to severe erythema noted in the antrum along the lesser curvature with erosions. Biopsy was taken from that area and from along the greater curvature of the antrum Body: Mild erythema with areas of atrophy Fundus: Normal Duodenum first part: Normal Duodenum second part: Normal Plan: Await pathology. Continue omeprazole OPERATION: .
[2018-01-21 17:00] VITALS: BP 160/81
== END 2018-01-21 17:02 | disposition home or self-care (01) ==
LOC: END 15:05
PROVIDERS: ATTEND Internal Medicine Gastroenterology
DX: K29.50 Unspecified chronic gastritis without bleeding (principal); K31.89 Other diseases of stomach and duodenum; K21.9 Gastro-esophageal reflux disease without esophagitis; K20.0 Eosinophilic esophagitis; B18.2 Chronic viral hepatitis C; I10 Essential (primary) hypertension; J44.9 Chronic obstructive pulmonary disease, unspecified; I25.10 Atherosclerotic heart disease of native coronary artery without angina pectoris; E78.00 Pure hypercholesterolemia, unspecified; K45.8 Other specified abdominal hernia without obstruction or gangrene; Z79.51 Long term (current) use of inhaled steroids; Z79.82 Long term (current) use of aspirin; Z79.899 Other long term (current) drug therapy; G47.30 Sleep apnea, unspecified; F10.10 Alcohol abuse, uncomplicated
CPT/HCPCS: 43239; 88342 ×2; 88305 ×2; J2250; J3010; J0171; J1200; J1610; J2310; J2405; J3490

== ENCOUNTER 2018-03-19 21:08 | Emergency (ER) | payer MEDICAID ==
[2018-03-19] MEDS ORDERED: HYDROMORPHONE HCL INJ/PF 2 MG/ML AMPULE IV ONE (21:41)
[2018-03-19] MEDS ORDERED: PROPOFOL INJ 200 MG/20 ML VIAL IV ONE (22:18)
--- NOTE | 2018-03-19 22:19 | ER Document Report ---
ED Hip Pain/Injury - General Chief Complaint: Hip Injury Stated Complaint: POSSIBLE HIP DISLOCATION Time Seen by Provider: 03/19/18 21:41 Primary Care Provider: RACHELL HENSON [Primary Care Provider] - Follow up as needed Notes: 63-year-old male to emergency department chief complaint of right hip pain. Patient has a prosthetic right hip. Has dislocated in the past. Bent over and felt a pop and fell down. Landed on his left knee and left elbow as well. Severe pain and deformity of the right hip. TRAVEL OUTSIDE OF THE [place] IN LAST 30 DAYS: No - HPI Patient complains to provider of: Pain, Hip Occurred: Just prior to arrival Where: Home Onset/Duration: Sudden Quality of pain: Achy Severity: Severe Pain Level: 5 Context: Fell/lost balance Symptoms prior to fall: None Symptoms since fall: None Skin Color: Normal Skin Temperature: Warm - Related Data Allergies/Adverse Reactions: aspirin Adverse Reaction (Verified 01/21/18 15:14) GI upset NSAIDS (Non-Steroidal Anti-Inflamma Adverse Reaction (Verified 01/21/18 15:14) GI upset Past Medical History - General Information source: Patient - Social History Smoking Status: Former Smoker Frequency of alcohol use: None Drug Abuse: None Lives with: Family Family History: CAD, Malignancy - Past Medical History Cardiac Medical History: Reports: Hx Coronary Artery Disease, Hx Heart Attack - PT. UNSURE, "THAT'S WHAT THEY SAID", Hx Hypertension - HYPERCHOLESTEROLEMIA, Hx Peripheral Vascular Disease, Hx Heart Murmur Denies: Hx Atrial Fibrillation, Hx Congestive Heart Failure, Hx Hypercholesterolemia, Hx Pulmonary Embolism Pulmonary Medical History: Reports: Hx Asthma, Hx COPD, Hx Sleep Apnea - Pt unaware of this, in chart only Denies: Hx Bronchitis, Hx Pneumonia, Hx Respiratory Failure, Hx Tuberculosis Neurological Medical History: Denies: Hx Cerebrovascular Accident, Hx Seizures Endocrine Medical History: Renal/ Medical History: Denies: Hx Peritoneal Dialysis Malignancy Medical History: Denies Hx Leukemia, Denies Hx Lung Cancer GI Medical History: Reports: Hx Gastroesophageal Reflux Disease, Hx Hiatal Hernia, Hx Liver Failure - Hep C, Hx Ulcer. Denies: Hx Crohn's Disease, Hx Irritable Bowel, Hx Pancreatitis Musculoskeletal Medical History: Reports Hx Arthritis - "ALL OVER", Denies Hx Fibromyalgia, Denies Hx Multiple Sclerosis, Denies Hx Muscular Dystrophy Psychiatric Medical History: Denies: Hx Bipolar Disorder, Hx Dementia, Hx Depression, Hx Post Traumatic Stress Disorder, Hx Schizophrenia Traumatic Medical History: Reports: Hx Fractures - Back, nose, Rt shoulder, Lt arm, Bilateral hands & feet Infectious Medical History: Denies: Hx HIV Past Surgical History: Reports: Hx Coronary Artery Bypass Graft - Triple Bypass, Hx Orthopedic Surgery - Left total shoulder, right total shoulder, bilateral hip replacement. Denies: Hx Appendectomy, Hx Bowel Surgery, Hx Cholecystectomy, Hx Colostomy, Hx Gastric Bypass Surgery, Hx Herniorrhaphy, Hx Pacemaker, Hx Tonsillectomy - Immunizations Hx Diphtheria, Pertussis, Tetanus Vaccination: No - UNSURE Hx Pneumococcal Vaccination: 12/20/15 Review of Systems - Review of Systems Notes: Constitutional: denies: Chills, Diaphoresis, Fever, Malaise, Weakness EENT: denies: Eye discharge, Blurred vision, Tearing, Double vision, Nose congestion, Nose discharge, Throat swelling, Mouth pain Cardiovascular: denies: Palpitations, Heart racing, Orthopnea, Dyspnea, Chest pain Respiratory: denies: Cough, Hurts to breathe, Wheezing, Shortness of breath Gastrointestinal: denies: Abdominal pain, Diarrhea, Nausea, Vomiting, Black stools, bright red blood in stool Genitourinary: denies: Burning, Dysuria, Discharge, Frequency, Flank pain, Hematuria Musculoskeletal: Planing of right hip pain, left elbow, left knee pain. Hematologic/Lymphatic: denies: Anemia, Easy bleeding, Easy bruising, Blood clots Neurological/Psychological: denies: Confusion, Dementia, Depression, Loss of c onsciousness Skin: No lesions, no masses, no skin breakdown, no abscesses Physical Exam - Vital signs Vitals: Temp Pulse Resp BP Pulse Ox 97.9 F 72 22 H 180/102 H 93 03/19/18 21:09 03/19/18 21:09 03/19/18 21:09 03/19/18 21:09 03/19/18 21:09 Interpretation: Normal - General General appearance: Appears well, Alert - HEENT Head: Normocephalic, Atraumatic Eyes: Normal Pupils: PERRL - Respiratory Respiratory status: No respiratory distress Chest status: Nontender Breath sounds: Normal Chest palpation: Normal - Cardiovascular Rhythm: Regular Heart sounds: Normal auscultation Murmur: No - Abdominal Inspection: Normal Distension: No distension Bowel sounds: Normal Tenderness: Nontender Organomegaly: No organomegaly - Back Back: Normal, Nontender - Extremities General upper extremity: Normal inspection, Nontender, Normal color, Normal ROM, Normal temperature, Other - Mild tenderness to palpation of left elbow General lower extremity: Other - The right hip is deformed and appears to be dislocated. Full range of motion at the knee and ankle. Pulses are intact. Sensation intact. Tenderness palpation of the left knee at the patella and mild tenderness to palpation of the left elbow.. No: Martin's sign - Neurological Neuro grossly intact: Yes Cognition: Normal Orientation: AAOx4 [place] Coma Scale Eye Opening: Spontaneous [place] Coma Scale Verbal: Oriented Dilshad Coma Scale Motor: Obeys Commands [place] Coma Scale Total: 15 Speech: Normal Motor strength normal: LUE, RUE, LLE, RLE Sensory: Normal - Psychological Associated symptoms: Normal affect, Normal mood - Skin Skin Temperature: Warm Skin Moisture: Dry Skin Color: Normal Course - Re-evaluation Re-evalutation: 03/19/18 23:36 Consultation performed with 25 mg of propofol IV. No complications. Presedation conscious sedation was reviewed. ASA 2. Oxygen at bedside. Patien t was easily bagable if needed but was not needed. Patient never stopped breathing. Tolerated procedure well. Hip was easily relocated by physician bakery assistant while I maintain conscious sedation procedure. Post procedure x-rays obtained. A knee immobilizer was ordered for the right knee. X-rays of the left knee and left elbow ordered as well. Labs and EKG were ordered in anticipation the patient may need to go to surgery however it appears that reduction technique was successful. Anticipate discharge shortly. 03/19/18 23:39 03/19/18 23:39 Laboratory 03/19/18 03/19/18 03/19/18 22:24 22:24 22:24 WBC 9.6 RBC 4.89 Hgb 15.8 Hct 45.5 MCV 93 MCH 32.3 MCHC 34.7 RDW 15.2 H Plt Count 131 L Seg Neutrophils % 73.0 Lymphocytes % 17.5 Monocytes % 6.7 Eosinophils % 2.0 Basophils % 0.8 Absolute Neutrophils 7.0 Absolute Lymphocytes 1.7 Absolute Monocytes 0.6 Absolute Eosinophils 0.2 Absolute Basophils 0.1 PT Cancelled INR Cancelled APTT Cancelled Sodium 142.0 Potassium 4.2 Chloride 109 H Carbon Dioxide 24 Anion Gap 9 BUN 12 Creatinine 0.69 Est GFR ( Amer) > 60 Est GFR (Non-Af Amer) > 60 Glucose 118 H Calcium 9.1 Total Bilirubin 0.2 Direct Bilirubin 0.1 Neonat Total Bilirubin Not Reportable Neonat Direct Bilirubin Not Reportable Neonat Indirect Bili Not Reportable AST 40 ALT 34 Alkaline Phosphatase 104 Total Protein 6.7 Albumin 4.0 03/19/18 22:24 WBC RBC Hgb Hct MCV MCH MCHC RDW Plt Count Seg Neutrophils % Lymphocytes % Monocytes % Eosinophils % Basophils % Absolute Neutrophils Absolute Lymphocytes Absolute Monocytes Absolute Eosinophils Absolute Basophils PT 13.3 INR 0.96 APTT 32.1 Sodium Potassium Chloride Carbon Dioxide Anion Gap BUN Creatinine Est GFR ( Amer) Est GFR (Non-Af Amer) Glucose Calcium Total Bilirubin Direct Bilirubin Neonat Total Bilirubin Neonat Direct Bilirubin Neonat Indirect Bili AST ALT Alkaline Phosphatase Total Protein Albumin 03/20/18 00:13 Elbow X-Ray 03/19/18 23:26 IMPRESSION: No acute findings. Hip/Pelvis X-Ray 03/19/18 23:26 IMPRESSION: No acute findings. Knee X-Ray 03/19/18 23:26 IMPRESSION: No acute osseous findings. - Vital Signs Vital signs: Temp Pulse Resp BP Pulse Ox 97.9 F 89 18 135/75 H 98 03/19/18 21:09 03/19/18 23:41 03/19/18 23:41 03/19/18 23:41 03/19/18 23:41 - Laboratory Result Diagrams: 03/19/18 22:24 03/19/18 22:24 Laboratory results interpreted by me: 03/19/18 03/19/18 22:24 22:24 RDW 15.2 H Plt Count 131 L Chloride 109 H Glucose 118 H - EKG Interpretation by [place] EKG shows normal: Sinus rhythm, [place], Intervals, QRS Complexes, ST-T Waves Procedures - Conscious Sedation Conscious sedation Time started: 23:37 Consent obtained: Yes Prior complications: Procedural sedation Pt with a mild systemic disease.: P2. - ASA Classification. Airway Evaluation: Normal anatomy Mallampati Classification: Class 2 Used during procedure: Suction available, IV access obtained, Pulse ox on pt., hall monitor on pt. Medications administered: Diprivan Reversal agents: None I personally performed/intraservice time: Sedation, 30 min or less - Joint Reduction/Fracture Care Right Hip Time completed: 23:38 Consent obtained: Yes Conscious sedation: Yes Pre-procedure NV exam: Yes Post-procedure NV exam: Yes Post-reduction x-ray: Joint reduced Complications: No Discharge - Discharge Clinical Impression: Hip dislocation, right Qualifiers: Encounter type: initial encounter Qualified Code(s): S73.004A - Unspecified dislocation of right hip, initial encounter Condition: Good Disposition: HOME, SELF-CARE Instructions: Dislocated Artificial Hip ([facility]) Additional Instructions: Wear the knee immobilizer as instructed. Follow-up with Dr. Carrizales. Return for any worsening symptoms or concerns. Referrals: PIPER CARRIZALES MD [ACTIVE STAFF] - Follow up as needed
--- NOTE | 2018-03-19 22:26 | RADIOLOGY REPORT (SQ) ---
2 VIEWS OF THE RIGHT HIP HISTORY: Joint pain. COMPARISON: 07/22/2017 FINDINGS: There has been prior bilateral total hip arthroplasties. Again seen is dislocation of the right femoral stem with respect to the prosthetic component. This was also present on the prior study. No evidence of periprosthetic fracture of the visualized bones. Chronic deformity of the left femoral shaft is also unchanged. Generalized osteopenia is present. Vascular stents are seen. IMPRESSION: Dislocation of the prosthetic right hip. This was present on prior study from 2018.
[2018-03-19 22:35] LABS: ABSOLUTE BASOPHILS # (AUTO) 0.1 10^3/uL (0.0-0.2); ABSOLUTE EOSINOPHILS # (AUTO) 0.2 10^3/uL (0.0-0.6); ABSOLUTE LYMPHOCYTES (AUTO) 1.7 10^3/uL (0.5-4.7); ABSOLUTE MONOCYTES (AUTO) 0.6 10^3/uL (0.1-1.4); BASOPHILS % (AUTO) 0.8 % (0-2); HEMATOCRIT 45.5 % (37.9-51.0); HEMOGLOBIN 15.8 g/dL (13.5-17.0); LYMPHOCYTES % (AUTO) 17.5 % (13-45); MEAN CORPUSCULAR HEMOGLOBIN 32.3 pg (27.0-33.4); MEAN CORPUSCULAR HGB CONC 34.7 g/dL (32.0-36.0); MEAN CORPUSCULAR VOLUME 93 fl (80-97); MONOCYTES % (AUTO) 6.7 % (3-13); PLATELET COUNT 131 10^3/uL (150-450); RED BLOOD COUNT 4.89 10^6/uL (4.35-5.55); RED CELL DISTRIBUTION WIDTH 15.2 % (11.5-14.0); TOTAL CELLS COUNTED % (AUTO) 100 %; WHITE BLOOD COUNT 9.6 10^3/uL (4.0-10.5)
[2018-03-19 22:52] LABS: ALANINE AMINOTRANSFERASE 34 U/L (21-72); ALKALINE PHOSPHATASE 104 U/L (38-126); ANION GAP 9 (5-19); ASPARTATE AMINO TRANSFERASE 40 U/L (17-59); BILIRUBIN,DIRECT 0.1 mg/dL (0.0-0.4); BILIRUBIN,TOTAL 0.2 mg/dL (0.2-1.3); BLOOD UREA NITROGEN 12 mg/dL (7-20); CALCIUM 9.1 mg/dL (8.4-10.2); CARBON DIOXIDE 24 mmol/L (22-30); CHLORIDE 109 mmol/L (98-107); GLUCOSE 118 mg/dL (75-110); POTASSIUM 4.2 mmol/L (3.6-5.0); TOTAL PROTEIN 6.7 g/dL (6.3-8.2)
[2018-03-19 22:59] LABS: INTERNATIONAL RATION (INR) 0.96; PARTIAL THROMBOPLASTIN TIME 32.1 SEC (23.5-35.8); PROTHROMBIN TIME 13.3 SEC (11.4-15.4)
--- NOTE | 2018-03-19 23:54 | RADIOLOGY REPORT (SQ) ---
EXAM DESCRIPTION: XR ELBOW 3 VIEWS COMPLETED DATE/TME: 03/19/2018 23:26 CLINICAL HISTORY: 63 years Male, pain COMPARISON: None. Findings: Surgical clips anteriorly of the proximal left forearm. Bones, joints, and soft tissues of the LEFT XR ELBOW 3 VIEWS appear otherwise intact. IMPRESSION: No acute findings.
--- NOTE | 2018-03-19 23:58 | RADIOLOGY REPORT (SQ) ---
EXAM DESCRIPTION: XR HIP 2 OR MORE VIEWS COMPLETED DATE/TME: 03/19/2018 23:26 CLINICAL HISTORY: 63 years Male, post reduction portable COMPARISON: None. Findings: Bilateral total hip arthroplasty with reduction near-anatomic alignment of the right total hip arthroplasty site. Right iliac stent.. Stable lucency adjacent to the intramedullary stem component of the left proximal femur partially imaged with cerclage wire fixation. Bone demineralization. Stable Bones, joints, and soft tissues of the bilateral XR HIP 2 VIEWS appear otherwise intact. IMPRESSION: No acute findings.
--- NOTE | 2018-03-20 00:07 | RADIOLOGY REPORT (SQ) ---
CLINICAL HISTORY: pain COMPARISON: None. TECHNIQUE: XR KNEE 4 OR MORE VIEWS 03/19/2018 11:26 PM [employer] FINDINGS: Old fracture deformity is noted in the distal femur as well. Joint spaces are preserved. Soft tissues are unremarkable. Inferior aspect of an intramedullary letty is seen within the distal femur. There are fragments of two surgical screws in the distal femur. There is evidence of hardware removal within the distal femur. IMPRESSION: No acute osseous findings.
[2018-03-20] MEDS ORDERED: HYDROCODONE/ACETAMINOPHEN 5-325 MG TABLET PO ONE (00:17)
[2018-03-20 02:12] VITALS: BP 137/75
--- NOTE | 2018-03-20 07:48 | EKG REPORT ---
SEVERITY:- NORMAL ECG - SINUS RHYTHM : Confirmed by: Jared Rodriguez MD 20-Mar-2018 07:47:39
== END 2018-03-20 01:55 | disposition home or self-care (01) ==
LOC: ER 21:08
DX: T84.020A Dislocation of internal right hip prosthesis, initial encounter (principal); X58.XXXA Exposure to other specified factors, initial encounter; Y92.009 Unspecified place in unspecified non-institutional (private) residence as the place of occurrence of the external cause; I25.10 Atherosclerotic heart disease of native coronary artery without angina pectoris; I25.2 Old myocardial infarction; Z88.6 Allergy status to analgesic agent; I10 Essential (primary) hypertension
CPT/HCPCS: 93005; 99284; 99152; 96374; 36415; 85025; 85610; 85730; 80053; 73080; 73502; 73564; 93010; 27265; L1830; J1170; J2704

== ENCOUNTER → 2018-12-03 | Outpatient (CLI) | payer MEDICAID ==
[2018-12-03 13:40] LABS: ABSOLUTE BASOPHILS # (AUTO) 0.1 10^3/uL (0.0-0.2); ABSOLUTE EOSINOPHILS # (AUTO) 0.3 10^3/uL (0.0-0.6); ABSOLUTE LYMPHOCYTES (AUTO) 1.8 10^3/uL (0.5-4.7); ABSOLUTE MONOCYTES (AUTO) 0.5 10^3/uL (0.1-1.4); ABSOLUTE NEUT (AUTO) 3.9 10^3/uL (1.7-8.2); HEMATOCRIT 46.7 % (37.9-51.0); HEMOGLOBIN 15.7 g/dL (13.5-17.0); LYMPHOCYTES % (AUTO) 27.6 % (13-45); MEAN CORPUSCULAR HEMOGLOBIN 31.3 pg (27.0-33.4); MEAN CORPUSCULAR HGB CONC 33.5 g/dL (32.0-36.0); MEAN CORPUSCULAR VOLUME 93 fl (80-97); MONOCYTES % (AUTO) 8.3 % (3-13); PLATELET COUNT 120 10^3/uL (150-450); RED BLOOD COUNT 5.01 10^6/uL (4.35-5.55); RED CELL DISTRIBUTION WIDTH 14.3 % (11.5-14.0); SEGMENTED NEUTROPHILS % (AUTO) 59.1 % (42-78); TOTAL CELLS COUNTED % (AUTO) 100 %; WHITE BLOOD COUNT 6.5 10^3/uL (4.0-10.5)
[2018-12-03 14:07] LABS: APPEARANCE,URINE CLEAR; BILIRUBIN,URINE NEGATIVE (NEGATIVE); COLOR,URINE YELLOW; GLUCOSE, URINE NEGATIVE (NEGATIVE); KETONES,URINE TRACE mg/dL (NEGATIVE); LEUKOCYTE ESTERASE,URINE NEGATIVE (NEGATIVE); NITRITE,URINE NEGATIVE (NEGATIVE); PROTEIN,URINE NEGATIVE (NEGATIVE); URINE SPECIFIC GRAVITY 1.021; UROBILINOGEN,URINE NEGATIVE mg/dL (<2.0)
[2018-12-03 14:15] LABS: ANION GAP 12 (5-19); BLOOD UREA NITROGEN 10 mg/dL (7-20); CALCIUM 9.9 mg/dL (8.4-10.2); CARBON DIOXIDE 23 mmol/L (22-30); CHLORIDE 105 mmol/L (98-107); GLUCOSE 85 mg/dL (75-110); POTASSIUM 4.3 mmol/L (3.6-5.0)
--- NOTE | 2018-12-03 15:49 | RADIOLOGY REPORT (SQ) ---
EXAM DESCRIPTION: CHEST PA/LATERAL COMPLETED DATE/TIME: 12/03/2018 1:52 pm REASON FOR STUDY: PRE-OP Z01.812 ENCOUNTER FOR PREPROCEDURAL LABORATORY EXAMINATION Z01.[address] PREPROCEDURAL CARDIOVASCULAR EXAMINATI Z01.811 ENCOUNTER FOR PREPROCEDURAL RESPIRATORY EXAMI NATION COMPARISON: 10/14/2016. NUMBER OF VIEWS: Two view. TECHNIQUE: Frontal and lateral radiographic views of the chest acquired. LIMITATIONS: None. FINDINGS: LUNGS AND PLEURA: No opacities, masses or pneumothorax. No pleural effusion. Attenuated bl ood vessels and flattened gina-diaphragms. MEDIASTINUM AND HILAR STRUCTURES: No masses. No contour abnormalities. HEART AND VASCULAR STRUCTURES: Heart normal in size and contour. No evidence for failure. BONES: No acute findings. HARDWARE: Sternotomy wires and coronary bypass markers. Bilateral shoulder prostheses. OTHER: No other significant finding. IMPRESSION: COPD. NO ACUTE RADIOGRAPHIC FINDING IN THE CHEST. TECHNICAL DOCUMENTATION: JOB ID: [id number] [employer]- All Rights Reserved Reading location - IP/workstation name: [email or web address]
--- NOTE | 2018-12-03 23:18 | EKG REPORT ---
SEVERITY:- OTHERWISE NORMAL ECG - SINUS RHYTHM VENTRICULAR PREMATURE COMPLEX : Confirmed by: Leandro Sullivan 03-Dec-2018 23:18:26
== END ==
LOC: OD 11:30
PROVIDERS: ATTEND Orthopaedic Surgery
DX: Z01.812 Encounter for preprocedural laboratory examination (principal); Z01.810 Encounter for preprocedural cardiovascular examination; Z01.811 Encounter for preprocedural respiratory examination; M17.11 Unilateral primary osteoarthritis, right knee; I10 Essential (primary) hypertension
CPT/HCPCS: 36415; 71046; 80048; 81001; 85025; 93005; 93010

== ENCOUNTER 2018-12-07 04:20 | Emergency (ER) | payer MEDICAID ==
--- NOTE | 2018-12-07 04:51 | ER Document Report ---
ED GI/ - General Stated Complaint: ABDOMINAL PAIN Primary Care Provider: PIPER CARRIZALES MD [ACTIVE STAFF] - Follow up as needed Information source: Patient TRAVEL OUTSIDE OF THE [place] IN LAST 30 DAYS: No - HPI Patient complains to provider of: Abdominal pain. No: Diarrhea, Dysuria, Feeding tube problem, Flank pain, Seo catheter problem, Groin pain, Hematuria, Testicular pain, Urinary retention, Vomiting, Other Timing/Duration: Intermittent Quality of pain: Cramping. denies: No pain, Achy, Burning, Dull, Fullness, Pressure, Sharp, Stabbing, Throbbing, Other Severity at maximum: Moderate Severity in ED: Moderate Pain Level: 1 Location: No: Chest pain, Epigastric, LUQ, LLQ, RUQ, RLQ, Left flank, Right flank, Low back, Suprapubic, Pelvis, Left testicle, Right testicle, Rectal, Other Associated symptoms: Constipation. denies: None, Blood in emesis, Blood in stool, Chest pain, Chills, Coffee ground emesis, Diarrhea, Dizzy, Dysuria, Erection problem, Fever, Foreskin problem, Hard stool, Hematuria, Hematospermia, Hurts to breath, Inguinal mass, Lightheaded, Loss of appetite, Nausea, Painful intercourse, Penile discharge, Radiates to back, Radiates to chest, Radiates to testicles, Radiates to shoulder, Shortness of breath, Sweaty, Syncope, Urinary hesitancy, Urinary frequency, Urinary retention, Urinary urgency, Vomiting, Other Exacerbated by: denies: Denies, Supine, Sitting, Standing, Movement, Walking, Coughing, Deep breathing, Food, Other Relieved by: denies: Denies, Supine, Sitting, Standing, Remaining still, Antacids, Food, Other Notes: 12/07/18 04:49 Patient claims that she has been without a bowel movement for 20 hours she claims this is typical of her constipation in the past she feels full and crampy denies any vomiting diarrhea fever chills lack of bloody stools or vomit - Related Data Allergies/Adverse Reactions: aspirin Adverse Reaction (Verified 01/21/18 15:14) GI upset NSAIDS (Non-Steroidal Anti-Inflamma Adverse Reaction (Verified 01/21/18 15:14) GI upset Past Medical History - Social History Smoking Status: Former Smoker Family History: CAD, Malignancy - Past Medical History Cardiac Medical History: Reports: Hx Coronary Artery Disease, Hx Heart Attack - PT. UNSURE, "THAT'S WHAT THEY SAID", Hx Hypertension - HYPERCHOLESTEROLEMIA, Hx Peripheral Vascular Disease, Hx Heart Murmur Denies: Hx Atrial Fibrillation, Hx Congestive Heart Failure, Hx Hypercholesterolemia, Hx Pulmonary Embolism Pulmonary Medical History: Reports: Hx Asthma, Hx COPD, Hx Sleep Apnea - Pt unaware of this, in chart only Denies: Hx Bronchitis, Hx Pneumonia, Hx Respiratory Failure, Hx Tuberculosis Neurological Medical History: Denies: Hx Cerebrovascular Accident, Hx Seizures, Hx Parkinson's Disease Endocrine Medical History: Renal/ Medical History: Denies: Hx Peritoneal Dialysis Malignancy Medical History: Denies Hx Leukemia, Denies Hx Lung Cancer GI Medical History: Reports: Hx Gastroesophageal Reflux Disease, Hx Hiatal Hernia, Hx Liver Failure - Hep C, Hx Ulcer. Denies: Hx Crohn's Disease, Hx Irritable Bowel, Hx Pancreatitis Musculoskeletal Medical History: Reports Hx Arthritis - "ALL OVER", Denies Hx Fibromyalgia, Denies Hx Multiple Sclerosis, Denies Hx Muscular Dystrophy Psychiatric Medical History: Denies: Hx Bipolar Disorder, Hx Dementia, Hx Depression, Hx Post Traumatic Stress Disorder, Hx Schizophrenia Traumatic Medical History: Reports: Hx Fractures - Back, nose, Rt shoulder, Lt arm, Bilateral hands & feet Infectious Medical History: Denies: Hx HIV Past Surgical History: Reports: Hx Coronary Artery Bypass Graft - Triple Bypass, Hx Orthopedic Surgery - Left total shoulder, right total shoulder, bilateral hip replacement. Denies: Hx Appendectomy, Hx Bowel Surgery, Hx Cholecystectomy, Hx Colostomy, Hx Gastric Bypass Surgery, Hx Herniorrhaphy, Hx Pacemaker, Hx Tonsillectomy - Immunizations Hx Diphtheria, Pertussis, Tetanus Vaccination: No - UNSURE Hx Pneumococcal Vaccination: 12/20/15 Review of Systems - Review of Systems Constitutional: denies: No symptoms reported, See HPI, Chills, Diaphoresis, Fever, Malaise, Weakness, Other, Weight gain, Weight loss, Recent illness EENT: denies: No symptoms reported, See HPI, Eye pain, Eye discharge, Blurred vision, Tearing, Double vision, Ear pain, Ear discharge, Nose pain, Nose congestion, Nose discharge, Sinus pressure, Sinus discharge, Throat pain, Difficulty swallowing, Throat swelling, Mouth pain, Mouth swelling, Dental problem, Vertigo, Other Cardiovascular: denies: No symptoms reported, See HPI, Chest pain, Palpitations, Heart racing, Orthopnea, Dyspnea, Syncope, Dizziness, Lightheaded, Edema, Other, Paroxysmal Nocturnal Dysp Gastrointestinal: Abdomen distended, Abdominal pain, Constipation. denies: No symptoms reported, See HPI, Diarrhea, Nausea, Vomiting, Blood streaked bowels, Poor appetite, Poor fluid intake, Blood in vomit, Black stools, Rectal bleeding, Last bowel movement, Fecal incontinence, Other Genitourinary: denies: No symptoms reported, See HPI, Burning, Dysuria, Discharge, Frequency, Flank pain, Hematuria, Incontinence, Pain, Urgency, Retention, Other -: Yes All other systems reviewed and negative Physical Exam - Vital signs Vitals: Temp Pulse Resp BP 98.2 F 78 17 134/56 H 12/07/18 04:36 12/07/18 04:36 12/07/18 04:36 12/07/18 04:36 Notes: PHYSICAL EXAMINATION: GENERAL: Well-appearing, well-nourished and in no acute distress. HEAD: Atraumatic, normocephalic. EYES: Pupils equal round and reactive to light, extraocular movements intact, sclera anicteric, conjunctiva are normal. ENT: nares patent, oropharynx clear without exudates. Moist mucous membranes. NECK: Normal range of motion, supple without lymphadenopathy LUNGS: Breath sounds clear to auscultation bilaterally and equal. No wheezes rales or rhonchi. HEART: Regular rate and rhythm without murmurs ABDOMEN: Soft, distended, bowel sounds all quadrants pain in the left lower quadrant EXTREMITIES: Normal range of motion, no pitting or edema. No cyanosis. NEUROLOGICAL: No focal neurological deficits. Moves all extremities spontaneously and on command. PSYCH: Normal mood, normal affect. SKIN: Warm, Dry, normal turgor, no rashes or lesions noted. Course - Vital Signs Vital signs: Temp Pulse Resp BP Pulse Ox 98.2 F 78 17 134/56 H 12/07/18 04:36 12/07/18 04:36 12/07/18 04:36 12/07/18 04:36 - Diagnostic Test Radiology reviewed: Image reviewed, Reports reviewed - EKG Interpretation by Me When compared to previous EKG there are: No significant change Additional EKG results interpreted by me: 12/07/18 04:58 12/07/18 05:10 - Transfer of Care Care transferred to following provider: LIZ 5:30 AM with [facility] Notes: 12/07/18 05:15 Note patient will receive a soapsuds enema if there is good relief they will be sent home with lactulose. Told to increase fluid and fiber diet this is pending now it will be checked out to Dr. De Dios at 5:30 AM who will make any further intervention necessary otherwise Discharge - Discharge Clinical Impression: Constipation Qualifiers: Constipation type: unspecified constipation type Qualified Code(s): K59.00 - Constipation, unspecified Condition: Good Disposition: HOME, SELF-CARE Instructions: Constipation ([facility]) Additional Instructions: Increase fluids and fiber in your diet. Medications as directed Prescriptions: Lactulose [Constulose 10 gm/15 mL Oral Solution] 10 gm PO BID PRN #100 ml PRN Reason: For Constipation Referrals: PIPER CARRIZALES MD [ACTIVE STAFF] - Follow up as needed
[2018-12-07] MEDS ORDERED: MINERAL OIL 30 ML UDCUP PR ONE (05:23)
--- NOTE | 2018-12-07 05:29 | RADIOLOGY REPORT (SQ) ---
CLINICAL HISTORY: SBO COMPARISON: None. TECHNIQUE: XR ABDOMEN SUPINE AND ERECT WITH CHEST (ABD ACUTE SERIES) 12/07/2018 4:47 AM CDT FINDINGS: Bowel gas pattern is nonspecific. There are no abnormal radiopaque foreign bodies or abnormal calcifications. Bilateral shoulder arthroplasties are present. Bilateral hip arthroplasties are present. The heart is normal in size following sternotomy. Lungs are clear. IMPRESSION: No bowel obstruction.
[2018-12-07] MEDS ORDERED: MAGNESIUM CITRATE 296 ML BOTTLE PO ONE (07:15)
[2018-12-07 07:31] VITALS: BP 120/64
== END 2018-12-07 07:58 | disposition home or self-care (01) ==
LOC: ER 04:20
DX: R33.9 Retention of urine, unspecified (principal); K59.00 Constipation, unspecified; R10.9 Unspecified abdominal pain; Z88.6 Allergy status to analgesic agent; I25.10 Atherosclerotic heart disease of native coronary artery without angina pectoris; I10 Essential (primary) hypertension; E78.00 Pure hypercholesterolemia, unspecified; Z95.1 Presence of aortocoronary bypass graft
CPT/HCPCS: 74022; J3490 ×2

== ENCOUNTER → 2019-04-21 | Outpatient (CLI) | payer MEDICAID ==
[2019-04-21 12:25] LABS: ALBUMIN 4.2 g/dL (3.5-5.0); ALKALINE PHOSPHATASE 91 U/L (38-126); ASPARTATE AMINO TRANSFERASE 34 U/L (17-59); BILIRUBIN,DIRECT 0.4 mg/dL (0.0-0.4); BILIRUBIN,TOTAL 0.6 mg/dL (0.2-1.3); CHOLESTEROL 164.53 mg/dL (0-200); TOTAL PROTEIN 7.4 g/dL (6.3-8.2); TRIGLYCERIDES 76 mg/dL (<150)
[2019-04-21 12:36] LABS: DIRECT LDL 94 mg/dL (<100)
[2019-04-21 14:28] LABS: INTERNATIONAL RATION (INR) 1.08; PARTIAL THROMBOPLASTIN TIME 23.9 SEC (23.5-35.8)
[2019-04-21 14:36] LABS: ANION GAP 9 (5-19); BLOOD UREA NITROGEN 19 mg/dL (7-20); CARBON DIOXIDE 21 mmol/L (22-30); CHLORIDE 109 mmol/L (98-107); GLUCOSE 94 mg/dL (75-110); POTASSIUM 4.5 mmol/L (3.6-5.0)
== END ==
LOC: OD 11:25
PROVIDERS: ATTEND Specialist
DX: I25.118 Atherosclerotic heart disease of native coronary artery with other forms of angina pectoris (principal); R06.02 Shortness of breath; R07.9 Chest pain, unspecified; R06.09 Other forms of dyspnea; I10 Essential (primary) hypertension; J44.9 Chronic obstructive pulmonary disease, unspecified; I73.9 Peripheral vascular disease, unspecified; F17.219 Nicotine dependence, cigarettes, with unspecified nicotine-induced disorders; R94.30 Abnormal result of cardiovascular function study, unspecified; Z95.1 Presence of aortocoronary bypass graft; Z79.899 Other long term (current) drug therapy
CPT/HCPCS: 36415; 80051; 80061; 80076; 82565; 82947; 83735; 84520; 85610; 85730

== ENCOUNTER → 2019-05-04 | Outpatient (CLI) | payer MEDICAID ==
[2019-05-04 15:46] LABS: ABSOLUTE BASOPHILS # (AUTO) 0.1 10^3/uL (0.0-0.2); ABSOLUTE EOSINOPHILS # (AUTO) 0.2 10^3/uL (0.0-0.6); ABSOLUTE LYMPHOCYTES (AUTO) 1.7 10^3/uL (0.5-4.7); ABSOLUTE MONOCYTES (AUTO) 0.6 10^3/uL (0.1-1.4); ABSOLUTE NEUT (AUTO) 3.3 10^3/uL (1.7-8.2); BASOPHILS % (AUTO) 0.9 % (0-2); EOSINOPHILS % (AUTO) 3.5 % (0-6); HEMATOCRIT 44.2 % (37.9-51.0); LYMPHOCYTES % (AUTO) 28.9 % (13-45); MEAN CORPUSCULAR HEMOGLOBIN 33.2 pg (27.0-33.4); MEAN CORPUSCULAR HGB CONC 33.8 g/dL (32.0-36.0); MEAN CORPUSCULAR VOLUME 98 fl (80-97); MONOCYTES % (AUTO) 9.6 % (3-13); PLATELET COUNT 101 10^3/uL (150-450); RED BLOOD COUNT 4.51 10^6/uL (4.35-5.55); RED CELL DISTRIBUTION WIDTH 13.7 % (11.5-14.0); SEGMENTED NEUTROPHILS % (AUTO) 57.1 % (42-78); TOTAL CELLS COUNTED % (AUTO) 100 %; WHITE BLOOD COUNT 5.8 10^3/uL (4.0-10.5)
== END ==
LOC: OD 14:56
PROVIDERS: ATTEND Specialist
DX: I25.118 Atherosclerotic heart disease of native coronary artery with other forms of angina pectoris (principal); R06.02 Shortness of breath; R06.09 Other forms of dyspnea; I10 Essential (primary) hypertension; Z95.1 Presence of aortocoronary bypass graft; J44.9 Chronic obstructive pulmonary disease, unspecified; I73.9 Peripheral vascular disease, unspecified; R07.9 Chest pain, unspecified; R06.00 Dyspnea, unspecified; F17.219 Nicotine dependence, cigarettes, with unspecified nicotine-induced disorders; R94.30 Abnormal result of cardiovascular function study, unspecified; E78.5 Hyperlipidemia, unspecified; Z79.899 Other long term (current) drug therapy
CPT/HCPCS: 36415; 85025

== ENCOUNTER → 2019-10-19 | Outpatient (CLI) | payer MEDICARE, MEDICAID ==
[2019-10-20 10:37] LABS: CREATININE URINE 86.8 mg/dL (Not Estab.); MICROALBUMIN URINE 44.8 ug/mL (Not Estab.)
== END ==
LOC: OD 10:40 → EDSTATUS 10-20 13:30
PROVIDERS: ATTEND Orthopaedic Surgery
DX: Z00.00 Encounter for general adult medical examination without abnormal findings (principal)
CPT/HCPCS: 82043; 82570